=== PATIENT | male | born 1950 | race Two or more races ===

== ENCOUNTER 2016-06-04 14:18 | Emergency (ER) | payer MEDICARE, OTHER ==
[~2016-06-04] VITALS: Ht 172.7 cm; Wt 99.8 kg
[2016-06-04 14:00] VITALS: BP 115/76
[~2016-06-04 14:18] MED LIST: CHOL200016 GT; FOLI0.8T23 GT; IPRA3AMP IH; NUT.237L67 GT; PANT40SU2 GT; PROT946L GT
[2016-06-04 14:50] LABS: BASOPHILS # (AUTO) 0.1 /CMM (0.0-0.2); BASOPHILS % (AUTO) 0.9 % (0.0-2.0); DIFF TOTAL % 100 %; EOSINOPHILS # (AUTO) 0.4 /CMM (0.0-0.7); EOSINOPHILS % (AUTO) 5.6 % (0.0-6.0); HEMATOCRIT 34 % (39-51); HEMOGLOBIN 11.1 g/dL (13.5-17.5); LYMPHOCYTES # (AUTO) 1.3 /CMM (0.8-4.8); LYMPHOCYTES % (AUTO) 20.7 % (20.0-44.0); MEAN CORPUSCULAR HEMOGLOBIN 32 PG (26.0-33.0); MEAN CORPUSCULAR HGB CONC 33 g/dl (31.0-36.0); MEAN CORPUSCULAR VOLUME 96 fL (80-96); MONOCYTES # (AUTO) 0.6 /CMM (0.1-1.30); MONOCYTES % (AUTO) 8.7 % (2.0-12.0); NEUTROPHILS % (AUTO) 64.1 % (43.0-81.0); PLATELET COUNT (AUTO) 142 /CMM (150-450); RED BLOOD CELL COUNT(AUTO) 3.49 MIL/uL (4.5-6.0); WHITE BLOOD COUNT (AUTO) 6.4 K/uL (4.3-11.0)
[2016-06-04 15:00] LABS: CALCIUM, SERUM 9.1 mg/dL (8.5-10.1); CREATININE 3.3 mg/dL (0.6-1.3); POTASSIUM 3.9 mmol/L (3.5-5.1)
[2016-06-04 15:04] LABS: INR 1.33 (0.87-1.13)
[2016-06-04 15:12] LABS: ALBUMIN 2.1 g/dL (3.4-5.0); BILIRUBIN,DIRECT 0.6 mg/dL (0.0-0.2); BILIRUBIN,TOTAL 1.3 mg/dL (0.2-1.0); INDIRECT BILIRUBIN 0.7 mg/dL (0.0-1.1); TOTAL PROTEIN, SERUM 6.3 g/dL (6.4-8.2)
[2016-06-04] MEDS ORDERED: LACT10SO GT (15:40)
[2016-06-04 17:06] VITALS: BP 114/67
== END 2016-06-04 17:07 | disposition home or self-care (01) ==
LOC: ER 14:23
DX: K70.31 Alcoholic cirrhosis of liver with ascites (principal); G40.909 Epilepsy, unspecified, not intractable, without status epilepticus; I48.91 Unspecified atrial fibrillation; I12.0 Hypertensive chronic kidney disease with stage 5 chronic kidney disease or end stage renal disease; N18.6 End stage renal disease
CPT/HCPCS: 36415; 49083; 71010; 80048; 80076; 83880; 85025; 85730; 99285; A4606; 76942-TC; Z7610

== ENCOUNTER 2016-06-12 11:45 | Inpatient (IN) | payer MEDICARE, OTHER ==
[~2016-06-12] VITALS: Ht 172.7 cm; Wt 103.0 kg
[~2016-06-12 11:45] MED LIST changes: +LACT10SO GT
[2016-06-12 12:00] VITALS: BP 91/59
[2016-06-12] MEDS ORDERED: IV NS 0.9% 1,000 ML BAG IV ONE (12:00)
[2016-06-12] MEDS ORDERED: IV SET PRIMARY PUMP SET 1 EA INFUS.SET MC ONE ×2 (12:08→12:42)
[2016-06-12] MEDS ORDERED: IV NS 0.9% 1,000 ML ONE (12:08)
[2016-06-12 12:11] LABS: BASOPHILS # (AUTO) 0.1 /CMM (0.0-0.2); BASOPHILS % (AUTO) 0.8 % (0.0-2.0); DIFF TOTAL % 100 %; EOSINOPHILS # (AUTO) 0.1 /CMM (0.0-0.7); EOSINOPHILS % (AUTO) 1.2 % (0.0-6.0); HEMATOCRIT 36 % (39-51); HEMOGLOBIN 11.8 g/dL (13.5-17.5); LYMPHOCYTES # (AUTO) 1.3 /CMM (0.8-4.8); LYMPHOCYTES % (AUTO) 10.8 % (20.0-44.0); MEAN CORPUSCULAR HEMOGLOBIN 32 PG (26.0-33.0); MEAN CORPUSCULAR HGB CONC 33 g/dl (31.0-36.0); MEAN CORPUSCULAR VOLUME 97 fL (80-96); MONOCYTES # (AUTO) 1.3 /CMM (0.1-1.30); MONOCYTES % (AUTO) 10.7 % (2.0-12.0); NEUTROPHILS # (AUTO) 9.4 /CMM (1.8-8.9); NEUTROPHILS % (AUTO) 76.5 % (43.0-81.0); PLATELET COUNT (AUTO) 131 /CMM (150-450); RED BLOOD CELL COUNT(AUTO) 3.76 MIL/uL (4.5-6.0); WHITE BLOOD COUNT (AUTO) 12.2 K/uL (4.3-11.0)
[2016-06-12 12:21] LABS: ANION GAP 13 (5-14); CALCIUM, SERUM 8.8 mg/dL (8.5-10.1); CARBON DIOXIDE 24 mmol/L (21-32); CHLORIDE 103 mmol/L (98-107); CREATININE 2.3 mg/dL (0.6-1.3); GFR 29 mL/min (>60); GLUCOSE 88 mg/dL (74-106); POTASSIUM 3.8 mmol/L (3.5-5.1); SODIUM SERUM 136 mmol/L (136-145); UREA NITROGEN, BLOOD 29 mg/dL (7-18)
[2016-06-12 12:27] LABS: ALANINE AMINOTRANSFERASE 13 U/L (12-78); ALBUMIN 1.9 g/dL (3.4-5.0); ASPARTATE AMINOTRANSFERASE 30 U/L (15-37); BILIRUBIN,DIRECT 0.9 mg/dL (0.0-0.2); BILIRUBIN,TOTAL 1.9 mg/dL (0.2-1.0); TOTAL PROTEIN, SERUM 5.8 g/dL (6.4-8.2)
[2016-06-12 12:29] LABS: TROPONIN I < 0.017 ng/mL (0.00-0.056)
[2016-06-12] MEDS ORDERED: MEROPENEM 1,000 MG in IV NS 0.9% 100 ML IV ONE (12:30)
[2016-06-12] MEDS ORDERED: VANCOMYCIN 1 GM in IV D5W 250 ML IV ONE (12:30)
[2016-06-12 12:43] LABS: LACTIC ACID 1.8 mmol/L (0.4-2.0)
[2016-06-12 13:32] LABS: KETONES,URINE 15 (NEGATIVE); LEUKOCYTE ESTERASE ,URINE Small (NEGATIVE)
[2016-06-12 13:33] LABS: ADD UA MICROSCOPIC YES
[2016-06-12 13:34] VITALS: BP 92/47
[2016-06-12 13:41] LABS: ADD URINE CULTURE YES
[2016-06-12] MEDS ORDERED: LACT10SO7 GT (14:08)
[2016-06-12] MEDS ORDERED: OMEP20CA10 GT (14:08)
[2016-06-12] MEDS ORDERED: CHOL100044 GT (14:08)
[2016-06-12] MEDS ORDERED: AMIN30LI4 GT (14:08)
[2016-06-12 15:07] LABS: INR 1.35 (0.87-1.13); PROTHROMBIN TIME 14.6 SECS (9.5-12.7)
[2016-06-12 15:45] VITALS: BP 101/59
[2016-06-12] MEDS ORDERED: Z GUARD REMEDY 2 OZ OINT TP PRN (18:00)
[2016-06-12] MEDS ORDERED: ACETAMINOPHEN 325 MG TABLET PO PRN (18:00)
[2016-06-12] MEDS ORDERED: HYDROCODONE/APAP 5/325MG 1 EACH TABLET PO PRN (18:00)
[2016-06-12] MEDS ORDERED: ZOLPIDEM TARTRATE 5 MG TABLET PO PRN (18:00)
[2016-06-12] MEDS ORDERED: Medication Not On Formulary EA (Ipratropium/Albuterol Sulfate (Duoneb 2.5-0.5 Mg/3 Ml So IH PRN (18:00)
[2016-06-12] MEDS ORDERED: ONDANSETRON HCL/PF 4 MG/2 ML VIAL IVP PRN (18:00)
[2016-06-12 18:05] VITALS: BP 93/47
[2016-06-12] MEDS ORDERED: FEE PK DOSING 1 MIN EA MC ONE (18:19)
[2016-06-12] MEDS ORDERED: ALBUTEROL FS 2.5 MG/0.5 ML VIAL.NEB NEB PRN (18:30)
[2016-06-12] MEDS ORDERED: IPRATROPIUM NEB FS 0.5 MG/2.5 ML AMPUL.NEB NEB PRN (18:30)
[2016-06-12] MEDS ORDERED: Medication Not On Formulary EA (Ipratropium/Albuterol Sulfate (Duoneb 2.5-0.5 Mg/3 Ml So IH SCH (19:30)
[2016-06-12] MEDS: ALBUTEROL FS 2.5 MG/0.5 ML VIAL.NEB NEB SCH (19:30)
[2016-06-12] MEDS: IPRATROPIUM NEB FS 0.5 MG/2.5 ML AMPUL.NEB NEB SCH (19:31)
[2016-06-12 20:00] VITALS: BP 96/59
[2016-06-12] MEDS ORDERED: MEROPENEM 1 G in IV NS 0.9% 100 ML IV SCH (21:00)
[2016-06-12] MEDS: LACTULOSE 10 G/15 ML UDC (PYXIS) GT SCH (22:09)
[2016-06-12] MEDS ORDERED: RENAL NOVASOURCE 1,000 ML BOTTLE ONE (23:12)
[2016-06-13] VITALS (8 sets, daily range): BP systolic 92–112; BP diastolic 46–64
[2016-06-13] MEDS: ALBUTEROL FS 2.5 MG/0.5 ML VIAL.NEB NEB SCH ×4 (03:45→19:16)
[2016-06-13] MEDS: IPRATROPIUM NEB FS 0.5 MG/2.5 ML AMPUL.NEB NEB SCH ×4 (03:45→19:16)
[2016-06-13] MEDS: LACTULOSE 10 G/15 ML UDC (PYXIS) GT SCH ×3 (05:54→21:23)
[2016-06-13] MEDS: PANTOPRAZOLE 40 MG TABLET.DR PO SCH (06:38)
[2016-06-13 07:41] LABS: BASOPHILS # (AUTO) 0.1 /CMM (0.0-0.2); BASOPHILS % (AUTO) 1.4 % (0.0-2.0); DIFF TOTAL % 100 %; EOSINOPHILS # (AUTO) 0.3 /CMM (0.0-0.7); EOSINOPHILS % (AUTO) 4.3 % (0.0-6.0); HEMATOCRIT 32 % (39-51); HEMOGLOBIN 10.8 g/dL (13.5-17.5); LYMPHOCYTES # (AUTO) 1.4 /CMM (0.8-4.8); LYMPHOCYTES % (AUTO) 21.5 % (20.0-44.0); MEAN CORPUSCULAR HEMOGLOBIN 32 PG (26.0-33.0); MEAN CORPUSCULAR HGB CONC 34 g/dl (31.0-36.0); MEAN CORPUSCULAR VOLUME 95 fL (80-96); MONOCYTES # (AUTO) 0.7 /CMM (0.1-1.30); MONOCYTES % (AUTO) 11.3 % (2.0-12.0); NEUTROPHILS % (AUTO) 61.5 % (43.0-81.0); PLATELET COUNT (AUTO) 125 /CMM (150-450); RED BLOOD CELL COUNT(AUTO) 3.36 MIL/uL (4.5-6.0); WHITE BLOOD COUNT (AUTO) 6.4 K/uL (4.3-11.0)
[2016-06-13 08:09] LABS: CALCIUM, SERUM 8.4 mg/dL (8.5-10.1); CREATININE 2.9 mg/dL (0.6-1.3); PHOSPHORUS 3.3 mg/dL (2.5-4.9); POTASSIUM 3.8 mmol/L (3.5-5.1)
[2016-06-13] MEDS ORDERED: IV SET PRIMARY PUMP SET 1 EA INFUS.SET MC ONE (14:31)
[2016-06-13] MEDS: MEROPENEM 500 MG in IV NS 0.9% 50 ML IV SCH (14:39)
[2016-06-13] MEDS: MORPHINE SULFATE INJ 2 MG/ML DISP.SYRIN IV PRN (14:47)
[2016-06-13] MEDS: Z GUARD REMEDY 2 OZ OINT TP PRN ×2 (17:01→17:02)
[2016-06-13] MEDS: HYDROGEL DRESSING 90 GM TUBE TP SCH (17:01)
[2016-06-13] MEDS: UREA 10% -AHA 4% CREAM 57 GM TUBE TP SCH ×2 (17:02→17:03)
[2016-06-13] MEDS: Z GUARD REMEDY 2 OZ OINT TP SCH (17:03)
[2016-06-13] MEDS ORDERED: VANCOMYCIN 500 MG in IV D5W 100 ML IV PRN (18:00)
[2016-06-13] MEDS ORDERED: VANCOMYCIN 1 GM in IV D5W 250 ML IV ONE (18:30)
[2016-06-14] MEDS: ALBUTEROL FS 2.5 MG/0.5 ML VIAL.NEB NEB SCH ×4 (01:06→19:51)
[2016-06-14] MEDS: IPRATROPIUM NEB FS 0.5 MG/2.5 ML AMPUL.NEB NEB SCH ×4 (01:06→19:51)
[2016-06-14] MEDS: LACTULOSE 10 G/15 ML UDC (PYXIS) GT SCH ×3 (05:28→21:16)
[2016-06-14 06:00] VITALS: BP 112/53
[2016-06-14] MEDS: PANTOPRAZOLE 40 MG TABLET.DR PO SCH ×2 (06:05→08:35)
[2016-06-14] MEDS: UREA 10% -AHA 4% CREAM 57 GM TUBE TP SCH ×2 (08:33→16:50)
[2016-06-14] MEDS: Z GUARD REMEDY 2 OZ OINT TP SCH ×2 (08:34→16:50)
[2016-06-14] MEDS: HYDROGEL DRESSING 90 GM TUBE TP SCH (08:34)
[2016-06-14] MEDS: Z GUARD REMEDY 2 OZ OINT TP PRN (08:34)
[2016-06-14 10:00] VITALS: BP 104/59
[2016-06-14] MEDS: MORPHINE SULFATE INJ 2 MG/ML DISP.SYRIN IV PRN (10:08)
[2016-06-14 10:37] LABS: BASOPHILS % (AUTO) 0.5 % (0.0-2.0); DIFF TOTAL % 100 %; EOSINOPHILS # (AUTO) 0.4 /CMM (0.0-0.7); HEMATOCRIT 35 % (39-51); HEMOGLOBIN 11.7 g/dL (13.5-17.5); LYMPHOCYTES % (AUTO) 14.5 % (20.0-44.0); MEAN CORPUSCULAR HEMOGLOBIN 32 PG (26.0-33.0); MEAN CORPUSCULAR HGB CONC 33 g/dl (31.0-36.0); MEAN CORPUSCULAR VOLUME 95 fL (80-96); MONOCYTES % (AUTO) 13.4 % (2.0-12.0); NEUTROPHILS # (AUTO) 4.8 /CMM (1.8-8.9); NEUTROPHILS % (AUTO) 66.6 % (43.0-81.0); PLATELET COUNT (AUTO) 136 /CMM (150-450); RED BLOOD CELL COUNT(AUTO) 3.68 MIL/uL (4.5-6.0); WHITE BLOOD COUNT (AUTO) 7.2 K/uL (4.3-11.0)
[2016-06-14 10:48] LABS: CALCIUM, SERUM 8.4 mg/dL (8.5-10.1); CREATININE 2.8 mg/dL (0.6-1.3); POTASSIUM 3.8 mmol/L (3.5-5.1)
[2016-06-14] MEDS: MEROPENEM 500 MG in IV NS 0.9% 50 ML IV SCH (12:36)
[2016-06-14] MEDS ORDERED: IV SET PRIMARY PUMP SET 1 EA INFUS.SET MC ONE (12:37)
[2016-06-14 13:00] VITALS: BP 104/59
[2016-06-14] MEDS: LACTOBACILLUS RHAMNOSUS GG 1 EACH CAP.SPRINK PO SCH (16:50)
[2016-06-14 20:00] VITALS: BP 150/68
[2016-06-14] MEDS: RENAL NOVASOURCE 1,000 ML BOTTLE GT PRN (20:19)
[2016-06-15] VITALS: BP 108/56
[2016-06-15] MEDS: ALBUTEROL FS 2.5 MG/0.5 ML VIAL.NEB NEB SCH ×4 (01:08→20:06)
[2016-06-15] MEDS: IPRATROPIUM NEB FS 0.5 MG/2.5 ML AMPUL.NEB NEB SCH ×4 (01:08→20:06)
[2016-06-15 04:00] VITALS: BP 106/60
[2016-06-15] MEDS: LACTULOSE 10 G/15 ML UDC (PYXIS) GT SCH ×3 (06:07→20:54)
[2016-06-15 07:35] LABS: CALCIUM, SERUM 8.5 mg/dL (8.5-10.1); POTASSIUM 3.7 mmol/L (3.5-5.1)
[2016-06-15 08:00] VITALS: BP 100/57
[2016-06-15] MEDS: LACTOBACILLUS RHAMNOSUS GG 1 EACH CAP.SPRINK PO SCH ×2 (09:21→17:00)
[2016-06-15] MEDS: UREA 10% -AHA 4% CREAM 57 GM TUBE TP SCH ×2 (09:22→17:04)
[2016-06-15] MEDS: PANTOPRAZOLE 40 MG TABLET.DR PO SCH (09:22)
[2016-06-15] MEDS: Z GUARD REMEDY 2 OZ OINT TP SCH ×2 (09:22→17:04)
[2016-06-15] MEDS: HYDROGEL DRESSING 90 GM TUBE TP SCH (09:22)
[2016-06-15] MEDS ORDERED: ALBUMIN 25% 25 GM in PREMIX 1 EA IV PRN (11:30)
[2016-06-15] MEDS: MEROPENEM 500 MG in IV NS 0.9% 50 ML IV SCH (12:57)
[2016-06-15] MEDS ORDERED: IV SET PRIMARY PUMP SET 1 EA INFUS.SET MC ONE (15:52)
[2016-06-15] MEDS: RENAL NOVASOURCE 1,000 ML BOTTLE GT PRN (18:29)
[2016-06-15 20:00] VITALS: BP 112/63
[2016-06-16] VITALS: BP 104/57
[2016-06-16] MEDS: ALBUTEROL FS 2.5 MG/0.5 ML VIAL.NEB NEB SCH ×4 (01:38→19:26)
[2016-06-16] MEDS: IPRATROPIUM NEB FS 0.5 MG/2.5 ML AMPUL.NEB NEB SCH ×4 (01:38→19:26)
[2016-06-16 04:00] VITALS: BP 106/54
[2016-06-16] MEDS: LACTULOSE 10 G/15 ML UDC (PYXIS) GT SCH ×3 (05:37→21:52)
[2016-06-16] MEDS: RENAL NOVASOURCE 1,000 ML BOTTLE GT PRN (05:38)
[2016-06-16 08:00] VITALS: BP 101/60
[2016-06-16] MEDS: LACTOBACILLUS RHAMNOSUS GG 1 EACH CAP.SPRINK PO SCH ×2 (09:10→17:39)
[2016-06-16] MEDS: UREA 10% -AHA 4% CREAM 57 GM TUBE TP SCH ×2 (09:12→17:40)
[2016-06-16] MEDS: HYDROGEL DRESSING 90 GM TUBE TP SCH (09:12)
[2016-06-16] MEDS: Z GUARD REMEDY 2 OZ OINT TP SCH ×2 (09:13→17:40)
[2016-06-16 12:00] VITALS: BP 109/59
[2016-06-16] MEDS ORDERED: SECONDARY IV SET 1 EA INFUS.SET MC ONE (12:40)
[2016-06-16] MEDS ORDERED: IV NS 0.9% 250 ML IV ONE (12:40)
[2016-06-16] MEDS: MEROPENEM 500 MG in IV NS 0.9% 50 ML IV SCH (12:44)
[2016-06-16 16:00] VITALS: BP 108/62
[2016-06-16 20:00] VITALS: BP 107/61
[2016-06-17] VITALS (7 sets, daily range): BP systolic 95–113; BP diastolic 39–59
[2016-06-17] MEDS: MORPHINE SULFATE INJ 2 MG/ML DISP.SYRIN IV PRN (01:04)
[2016-06-17] MEDS: RENAL NOVASOURCE 1,000 ML BOTTLE GT PRN ×2 (01:15→17:46)
[2016-06-17] MEDS: IPRATROPIUM NEB FS 0.5 MG/2.5 ML AMPUL.NEB NEB SCH ×4 (01:26→20:00)
[2016-06-17] MEDS: ALBUTEROL FS 2.5 MG/0.5 ML VIAL.NEB NEB SCH ×4 (01:27→20:00)
[2016-06-17] MEDS: LACTULOSE 10 G/15 ML UDC (PYXIS) GT SCH ×3 (04:24→21:05)
[2016-06-17 08:14] LABS: CALCIUM, SERUM 8.2 mg/dL (8.5-10.1); POTASSIUM 4.4 mmol/L (3.5-5.1)
[2016-06-17] MEDS: HYDROGEL DRESSING 90 GM TUBE TP SCH (08:54)
[2016-06-17] MEDS: LACTOBACILLUS RHAMNOSUS GG 1 EACH CAP.SPRINK PO SCH ×2 (09:00→17:46)
[2016-06-17] MEDS: PANTOPRAZOLE 40 MG TABLET.DR PO SCH (09:00)
[2016-06-17] MEDS: VIT B CMPLX 3/FA/VIT C/BIOTIN 1 TAB TABLET PO SCH (09:00)
[2016-06-17] MEDS: Z GUARD REMEDY 2 OZ OINT TP SCH ×2 (09:01→17:47)
[2016-06-17] MEDS: UREA 10% -AHA 4% CREAM 57 GM TUBE TP SCH ×2 (09:03→17:45)
[2016-06-17] MEDS: MEROPENEM 500 MG in IV NS 0.9% 50 ML IV SCH (15:38)
[2016-06-17] MEDS ORDERED: VANCOMYCIN 1 GM in IV D5W 250 ML IV ONE (18:00)
[2016-06-18] VITALS: BP 109/60
[2016-06-18] MEDS: IPRATROPIUM NEB FS 0.5 MG/2.5 ML AMPUL.NEB NEB SCH ×4 (01:41→19:41)
[2016-06-18] MEDS: ALBUTEROL FS 2.5 MG/0.5 ML VIAL.NEB NEB SCH ×4 (01:41→19:41)
[2016-06-18 04:00] VITALS: BP 109/65
[2016-06-18] MEDS: LACTULOSE 10 G/15 ML UDC (PYXIS) GT SCH ×3 (05:48→21:28)
[2016-06-18] MEDS ORDERED: VANCOMYCIN 500 MG in IV D5W 100 ML IV PRN (06:00)
[2016-06-18 08:00] VITALS: BP 98/52
[2016-06-18] MEDS: VIT B CMPLX 3/FA/VIT C/BIOTIN 1 TAB TABLET PO SCH (08:01)
[2016-06-18] MEDS: LACTOBACILLUS RHAMNOSUS GG 1 EACH CAP.SPRINK PO SCH ×2 (08:02→16:40)
[2016-06-18] MEDS: PANTOPRAZOLE 40 MG TABLET.DR PO SCH (08:02)
[2016-06-18] MEDS: UREA 10% -AHA 4% CREAM 57 GM TUBE TP SCH ×2 (08:03→16:41)
[2016-06-18] MEDS: HYDROGEL DRESSING 90 GM TUBE TP SCH (08:03)
[2016-06-18] MEDS: Z GUARD REMEDY 2 OZ OINT TP SCH ×2 (08:03→16:43)
[2016-06-18 12:00] VITALS: BP 100/58
[2016-06-18] MEDS: MEROPENEM 500 MG in IV NS 0.9% 50 ML IV SCH (12:14)
[2016-06-18 15:18] LABS: CALCIUM, SERUM 8.3 mg/dL (8.5-10.1); CREATININE 3.2 mg/dL (0.6-1.3); POTASSIUM 4.6 mmol/L (3.5-5.1)
[2016-06-18 16:00] VITALS: BP 116/69
[2016-06-18 20:00] VITALS: BP 104/59
[2016-06-18] MEDS: MORPHINE SULFATE INJ 2 MG/ML DISP.SYRIN IV PRN (21:02)
[2016-06-19] VITALS (7 sets, daily range): BP systolic 90–110; BP diastolic 45–62
[2016-06-19] MEDS: IPRATROPIUM NEB FS 0.5 MG/2.5 ML AMPUL.NEB NEB SCH ×4 (01:57→19:53)
[2016-06-19] MEDS: ALBUTEROL FS 2.5 MG/0.5 ML VIAL.NEB NEB SCH ×4 (01:57→19:53)
[2016-06-19] MEDS: LACTULOSE 10 G/15 ML UDC (PYXIS) GT SCH ×2 (04:27→12:01)
[2016-06-19] MEDS: PANTOPRAZOLE 40 MG TABLET.DR PO SCH (06:19)
[2016-06-19] MEDS: LACTOBACILLUS RHAMNOSUS GG 1 EACH CAP.SPRINK PO SCH ×2 (09:04→16:44)
[2016-06-19] MEDS: VIT B CMPLX 3/FA/VIT C/BIOTIN 1 TAB TABLET PO SCH (09:04)
[2016-06-19] MEDS: HYDROGEL DRESSING 90 GM TUBE TP SCH (09:05)
[2016-06-19] MEDS: Z GUARD REMEDY 2 OZ OINT TP SCH ×2 (09:05→16:44)
[2016-06-19] MEDS: UREA 10% -AHA 4% CREAM 57 GM TUBE TP SCH ×2 (09:06→16:44)
[2016-06-19 10:36] LABS: CALCIUM, SERUM 8.1 mg/dL (8.5-10.1); POTASSIUM 4.5 mmol/L (3.5-5.1)
[2016-06-19 11:09] LABS: CREATININE 3.1 mg/dL (0.6-1.3)
[2016-06-19] MEDS: MORPHINE SULFATE INJ 2 MG/ML DISP.SYRIN IV PRN ×2 (11:57→18:29)
[2016-06-19] MEDS: MEROPENEM 500 MG in IV NS 0.9% 50 ML IV SCH (12:38)
[2016-06-19] MEDS ORDERED: MERO500V IV (17:39)
== END 2016-06-19 21:21 | disposition short-term general hospital (02) | DRG 314 ==
LOC: ER 11:47 → TELE1 15:50
PROVIDERS: ADMIT Internal Medicine; ATTEND Internal Medicine
PROC: 5A1955Z Respiratory Ventilation, Greater than 96 Consecutive Hours (ICD-10-PCS; principal; 2016-06-12)
PROC: 5A1D60Z (ICD-10-PCS; 2016-06-13)
DX: T82.7XXA Infection and inflammatory reaction due to other cardiac and vascular devices, implants and grafts, initial encounter (principal); N18.6 End stage renal disease; R53.2 Functional quadriplegia; G93.40 Encephalopathy, unspecified; J18.9 Pneumonia, unspecified organism; R65.20 Severe sepsis without septic shock; Z99.11 Dependence on respirator [ventilator] status; J96.11 Chronic respiratory failure with hypoxia; D68.59 Other primary thrombophilia; K76.6 Portal hypertension; N39.0 Urinary tract infection, site not specified; I13.2 Hypertensive heart and chronic kidney disease with heart failure and with stage 5 chronic kidney disease, or end stage renal disease; Z99.2 Dependence on renal dialysis; Z87.891 Personal history of nicotine dependence; Z93.1 Gastrostomy status; D63.8 Anemia in other chronic diseases classified elsewhere; D69.2 Other nonthrombocytopenic purpura; G40.909 Epilepsy, unspecified, not intractable, without status epilepticus; I48.91 Unspecified atrial fibrillation; J44.9 Chronic obstructive pulmonary disease, unspecified; K70.31 Alcoholic cirrhosis of liver with ascites; L98.9 Disorder of the skin and subcutaneous tissue, unspecified; I50.9 Heart failure, unspecified; L85.3 Xerosis cutis; X58.XXXA Exposure to other specified factors, initial encounter; T14.8 Other injury of unspecified body region; Y93.9 Activity, unspecified; Y92.89 Other specified places as the place of occurrence of the external cause; Y99.9 Unspecified external cause status; Y84.9 Medical procedure, unspecified as the cause of abnormal reaction of the patient, or of later complication, without mention of misadventure at the time of the procedure; F09 Unspecified mental disorder due to known physiological condition; R13.10 Dysphagia, unspecified
CPT/HCPCS: 31720; 36415; 71010-TC; 80048-TC; 80076-TC; 80202-TC; 81000-TC; 82962-TC; 83605-TC; 83735-TC; 84100-TC; 84484-TC; 85025-TC; 85730-TC; 87040-TC; 87081-TC; 87086-TC; 90935-TC; 94002-TC; 94003-TC; 97001-TC; A4216; A4606; A6248; A6402; A6403; J2185; J2270; J2405; J3370; J7030; J7050; J7060; P9047; Z7610

== ENCOUNTER 2016-07-31 18:37 | Inpatient (IN) | payer MEDICARE, OTHER ==
[~2016-07-31] VITALS: Ht 182.9 cm; Wt 105.2 kg
[~2016-07-31 18:37] MED LIST changes: +AMIN30LI4 GT; +CHOL100044 GT; -CHOL200016 GT; -LACT10SO GT; +LACT10SO7 GT; +MERO500V IV; +OMEP20CA10 GT; -PANT40SU2 GT; -PROT946L GT
--- NOTE | 2016-07-31 19:05 | NUR ---
PT ARRIVED VIA TRANSPORT VENT WITH TRANSPORT THERAPIST AT BEDSIDE, PT IS TRACHED WITH SHILEY #[address] AND CURRENTLY ON [facility] VENT WITH THE FOLLOWING SETTINGS OF AC 16 600 35% +5, PT TRACH INFLATED TO MOV NO LEAK PRESENT, PT HAS COURSE, RHONCHI BILATERAL BREATH SOUNDS. PT VENT ALARMS ARE SET AND VERIFIED; WITH VENT PLUGGED INTO RED OUTLET. PT TOLERATING SETTINGS WELL NO ADVERSE REACTIONS NOTED Addendum: 07/31/16 at 1931 by BRIAN MASON RT Amended: Links added.
[2016-07-31 19:20] LABS: BASOPHILS % (AUTO) 0.2 % (0.0-2.0); EOSINOPHILS # (AUTO) 0.3 /CMM (0.0-0.7); EOSINOPHILS % (AUTO) 2.9 % (0.0-6.0); HEMATOCRIT 30 % (39-51); HEMOGLOBIN 10.1 g/dL (13.5-17.5); LYMPHOCYTES # (AUTO) 1.4 /CMM (0.8-4.8); LYMPHOCYTES % (AUTO) 11.7 % (20.0-44.0); MEAN CORPUSCULAR HEMOGLOBIN 31 PG (26.0-33.0); MEAN CORPUSCULAR HGB CONC 34 g/dl (31.0-36.0); MEAN CORPUSCULAR VOLUME 92 fL (80-96); MONOCYTES # (AUTO) 1.1 /CMM (0.1-1.30); MONOCYTES % (AUTO) 9.8 % (2.0-12.0); NEUTROPHILS # (AUTO) 8.7 /CMM (1.8-8.9); NEUTROPHILS % (AUTO) 75.4 % (43.0-81.0); PLATELET COUNT (AUTO) 154 /CMM (150-450); RDW COEFFICIENT OF VARIATION 16.6 (11.5-15.0); RED BLOOD CELL COUNT(AUTO) 3.23 MIL/uL (4.5-6.0); WHITE BLOOD COUNT (AUTO) 11.6 K/uL (4.3-11.0)
--- NOTE | 2016-07-31 19:26 | NUR ---
CXR DONE AT THE BEDSIDE.
[2016-07-31 19:30] LABS: CALCIUM, SERUM 8.9 mg/dL (8.5-10.1); CREATININE 2.6 mg/dL (0.6-1.3); POTASSIUM 4.4 mmol/L (3.5-5.1)
[2016-07-31] MEDS ORDERED: LEVE100S GT (19:31)
[2016-07-31] MEDS ORDERED: LORA1TAB GT (19:31)
[2016-07-31] MEDS ORDERED: LANS30CA10 GT (19:31)
[2016-07-31] MEDS ORDERED: ZINC220C8 GT (19:31)
[2016-07-31] MEDS ORDERED: EPOE1VIA7 SQ (19:31)
[2016-07-31] MEDS ORDERED: CHOL100044 GT (19:31)
[2016-07-31 19:36] LABS: ALBUMIN 1.8 g/dL (3.4-5.0); BILIRUBIN,DIRECT 0.4 mg/dL (0.0-0.2); TOTAL PROTEIN, SERUM 6.4 g/dL (6.4-8.2)
[2016-07-31 19:40] LABS: INR 1.21 (0.87-1.13); PROTHROMBIN TIME 13.1 SECS (9.5-12.7)
--- NOTE | 2016-07-31 19:40 | NUR ---
CALLED NURSING SUP. FOR TELE BED
--- NOTE | 2016-07-31 20:26 | NUR ---
CALLED, TRANSFERRED CALL TO
--- NOTE | 2016-07-31 20:28 | NUR ---
CALLING REPORT TO TELE NURSE.
--- NOTE | 2016-07-31 20:59 | NUR ---
CALLED RT TO TRANSPORT PT UPSTAIRS
[2016-07-31 21:30] VITALS: BP 93/54
--- NOTE | 2016-07-31 21:30 | NUR ---
PROGRAM ATTENDANT ADMIT PT ARRIVED ON UNIT. AAOX2-3, GABONESE SPEAKING. NO C/O OF PAIN OR DISCOMFORT AT THIS TIME. NO S/S OF RESPIRATORY DISTRESS. TELE SHOWING SR IN 60'S. TRACHE SHILEY 8 INTACT, [facility] VENT SETTINGS ACCURATE: AC 16, TV 600, FI02 35%, PEEP 5. DIALYSIS PORT R UPPER CHEST, LAST DIALYSIS SESSION RECEIVED TODAY 07/31. RAC IV INTACT AND PATENT. G TUBE INTACT, FLUSHED, PATENT. SKIN ISSUES DOCUMENTED. ABDOMEN VERY DISTENDED. BP 93/54, PULSE 64 - MD WELLS AWARE WITH NO NEW ORDERS. ORIENTATED TO UNIT AND CALL LIGHT , SAFETY PRECAUTIONS RENDERED. WILL CONT TO MONITOR.
--- NOTE | 2016-07-31 22:30 | NUR ---
RN NOTE PER PT DTR CARLOS. PT LAST RECEIVED DIALYSIS TODAY 07/31, BUT REFUSED ON 07/29. HIS SCHEDULE IS 3 TIMES A WEEK: THURSDAY, THURSDAY, THURSDAY.
[2016-07-31] MEDS ORDERED: RENAL NOVASOURCE 1,000 ML BOTTLE ONE (22:53)
[2016-07-31] MEDS ORDERED: LEVETIRACETAM SOL (5 ML) 100 MG/ML UDC PO SCH (23:30)
[2016-07-31] MEDS ORDERED: LEVETIRACETAM SOL (5 ML) 100 MG/ML UDC ONE (23:48)
[2016-07-31] MEDS ORDERED: LACTULOSE 10 G/15 ML UDC (PYXIS) ONE (23:50)
[2016-08-01] VITALS (8 sets, daily range): BP systolic 90–98; BP diastolic 48–62
[2016-08-01] MEDS: LACTULOSE 10 G/15 ML UDC (PYXIS) PO SCH ×4 (00:18→20:26)
[2016-08-01] MEDS ORDERED: ALBUTEROL FS 2.5 MG/0.5 ML VIAL.NEB ONE ×2 (02:00→07:39)
[2016-08-01] MEDS ORDERED: IPRATROPIUM NEB FS 0.5 MG/2.5 ML AMPUL.NEB ONE ×2 (02:00→07:39)
[2016-08-01] MEDS: ALBUTEROL FS 2.5 MG/0.5 ML VIAL.NEB NEB SCH ×2 (02:11→07:55)
[2016-08-01] MEDS: IPRATROPIUM NEB FS 0.5 MG/2.5 ML AMPUL.NEB NEB SCH ×4 (02:11→20:26)
--- NOTE | 2016-08-01 03:01 | NUR ---
RN NOTE PT RESTING COMFORTABLY WITH EYES CLOSED. NO DISTRESS NOTED. WILL CONT TO MONITOR.
--- NOTE | 2016-08-01 06:07 | NUR ---
RN NOTE NO SIGNIFICANT CHANGES THIS SHIFT. TRACHE VENT PATIENT - SETTINGS ACCURATE. NO S/S OF RESPIRATORY DISTRESS. TELE SHOWS SR WITH BBB IN 60'S. R WRIST INTACT AND PATENT. G TUBE INTACT, FLUSHED, TOLERATING FEEDING WELL. NPO STATUS. CONSENT SIGNED FOR PARACENTESIS. REPOSITIONED Q2HRS. CALL LIGHT IN REACH, WILL F/U WITH DAY SHIFT FOR MAREN.
[2016-08-01 06:55] LABS: BASOPHILS % (AUTO) 0.5 % (0.0-2.0); EOSINOPHILS # (AUTO) 0.4 /CMM (0.0-0.7); EOSINOPHILS % (AUTO) 5.3 % (0.0-6.0); HEMATOCRIT 27 % (39-51); HEMOGLOBIN 9.2 g/dL (13.5-17.5); LYMPHOCYTES # (AUTO) 1.5 /CMM (0.8-4.8); LYMPHOCYTES % (AUTO) 23.1 % (20.0-44.0); MEAN CORPUSCULAR HEMOGLOBIN 31 PG (26.0-33.0); MEAN CORPUSCULAR HGB CONC 34 g/dl (31.0-36.0); MEAN CORPUSCULAR VOLUME 93 fL (80-96); MONOCYTES # (AUTO) 0.7 /CMM (0.1-1.30); MONOCYTES % (AUTO) 10.4 % (2.0-12.0); NEUTROPHILS # (AUTO) 4.1 /CMM (1.8-8.9); NEUTROPHILS % (AUTO) 60.7 % (43.0-81.0); PLATELET COUNT (AUTO) 130 /CMM (150-450); RDW COEFFICIENT OF VARIATION 16.9 (11.5-15.0); RED BLOOD CELL COUNT(AUTO) 2.92 MIL/uL (4.5-6.0); WHITE BLOOD COUNT (AUTO) 6.7 K/uL (4.3-11.0)
[2016-08-01 07:08] LABS: INR 1.21 (0.87-1.13); PROTHROMBIN TIME 13.1 SECS (9.5-12.7)
[2016-08-01 07:33] LABS: CALCIUM, SERUM 8.6 mg/dL (8.5-10.1); CREATININE 2.8 mg/dL (0.6-1.3); MAGNESIUM 2.2 mg/dL (1.8-2.4); POTASSIUM 4.3 mmol/L (3.5-5.1)
--- NOTE | 2016-08-01 07:35 | NUR ---
MS RN RECEIVED ON BED,NON VERBAL, VENT DEPENDENT PATIENT,G TUBE INTACT CLAMP ART THIS TIME, ABDOMEN VERY DISTENDED,NO DISTRESS NOTED, REPOSITIONED FOR COMFORT, WILL MONITOR PATIENT'S CONDITION.
--- NOTE | 2016-08-01 08:48 | NUR ---
WOUND CARE CONSULT: PATIENT SEEN AND SKIN ASSESSMENT DONE. VENT DEPENDENT PATIENT, ON GT FEEDING, INCONTINENT, IMMOBILE, DELONTE 13, NURSING STAFF ORDERED RUBINA ISOFLEX FLYNN BED AND WILL BE PLACED WHEN AVAILABLE IN THE UNIT. SEE TODAY'S SKIN ASSESSMENT IN PCS ALONG WITH RECOMMENDATIONS. RECOMMEND MOISTURE PROTECTION WITH Z GUARD ORDERED, TURN AND REPOSITION EVERY 2 HRS PATIENT CONDITION PERMITS, OFFLOAD BOTH HEELS. ALL DISCUSSED WITH NURSING STAFF. MD IN AGREEMENT WITH PLAN OF CARE. Addendum: 08/01/16 at 0850 by DREW MCNULTY WNDNU Amended: Links added.
[2016-08-01] MEDS: Z GUARD REMEDY 2 OZ OINT TP SCH ×2 (09:00→17:00)
[2016-08-01] MEDS: LEVETIRACETAM SOL (5 ML) 100 MG/ML UDC GT SCH ×2 (09:00→18:19)
[2016-08-01] MEDS ORDERED: RENAL NOVASOURCE 1,000 ML BOTTLE GT PRN (09:00)
[2016-08-01] MEDS ORDERED: HYDROGEL DRESSING 90 GM TUBE TP SCH (09:00)
--- NOTE | 2016-08-01 09:00 | NUR ---
MS RN MEDS HELD DUE TO PARACENTHESIS LATER.
[2016-08-01] MEDS ORDERED: Medication Not On Formulary EA (Ipratropium/Albuterol Sulfate (Duoneb 2.5-0.5 Mg/3 Ml So IH PRN (09:30)
[2016-08-01] MEDS ORDERED: LEVETIRACETAM SOL (5 ML) 100 MG/ML UDC GT SCH (09:30)
[2016-08-01] MEDS ORDERED: LORAZEPAM 1 MG TABLET GT PRN (09:30)
[2016-08-01] MEDS ORDERED: NEPRO VAN 237 ML CAN GT SCH (09:30)
[2016-08-01] MEDS ORDERED: IPRATROPIUM NEB FS 0.5 MG/2.5 ML AMPUL.NEB NEB PRN (09:30)
[2016-08-01] MEDS ORDERED: ALBUTEROL FS 2.5 MG/3 ML VIAL.NEB NEB PRN (09:30)
[2016-08-01] MEDS ORDERED: Medication Not On Formulary EA (Lansoprazole (Prevacid) 30 MG) GT SCH (09:30)
[2016-08-01] MEDS: LACTULOSE 10 G/15 ML UDC (PYXIS) GT SCH ×2 (13:00→20:25)
[2016-08-01] MEDS: ALBUTEROL FS 2.5 MG/3 ML VIAL.NEB NEB SCH ×2 (13:26→20:26)
[2016-08-01] MEDS ORDERED: Medication Not On Formulary EA (Ipratropium/Albuterol Sulfate (Duoneb 2.5-0.5 Mg/3 Ml So IH SCH (13:30)
[2016-08-01] MEDS ORDERED: NEUTRA PHOS 1 POWD.PACKET NG ONE (14:30)
--- NOTE | 2016-08-01 14:30 | NUR ---
MS RN WAS SEEN BY DR. DIMITRIOS Mike/ KOSTA FOR THORACENTHESIS IN AM.
--- NOTE | 2016-08-01 15:30 | NUR ---
MS RN PARACENTHESIS DONE,TOOK OFF 9 LITERS,B/P MONITORED, LAST B/P . DR. BURCIAGA IS AWARE.ALL NEEDS ATTENDED.
[2016-08-01] MEDS: MULTIVITAMIN LIQ 5 ML UDC GT SCH (16:12)
[2016-08-01] MEDS: ZINC SULFATE 220 MG CAPSULE GT SCH (16:13)
[2016-08-01] MEDS: PANTOPRAZOLE 40 MG/PACK PACK GT SCH ×2 (16:13→20:25)
[2016-08-01] MEDS: EPOETIN ALFA (10,000 UNIT) 10,000 UNIT/ML VIAL SQ SCH (16:14)
[2016-08-01] MEDS: Z GUARD REMEDY 2 OZ OINT TP PRN ×2 (16:17→18:19)
[2016-08-01] MEDS: NEOMY SULF/BACITRAC ZN/POLY 15 GM TUBE TP SCH (16:17)
--- NOTE | 2016-08-01 16:20 | NUR ---
MS RN DUE MEDS GIVEN VIA G TUBE, FEEDING RESUMED,NO DISTRESS NOTED.
--- NOTE | 2016-08-01 18:56 | NUR ---
MS RN ON BED, NO DISTRESS NOTED,ALL NEEDS ATTENDED.
--- NOTE | 2016-08-01 19:15 | NUR ---
RN NOTE RECEIVED REPORT. PT AAOX3, NO C/O OF PAIN OR DISCOMFORT AT THIS TIME. NO S/S OF RESPIRATORY DISTRESS. VENT SETTINGS ACCURATE. S/P PARACENTESIS ON DAY SHIFT, DRESSING INTACT, NO BLEEDING NOTED. G TUBE INTACT TOLERATING FEEDING WELL. R WRIST INTACT AND APTENT. TELE SHOWS SR 70'S. ALL NEEDS ATTENED TO, WILL CONT TO MONITOR.CALL LIGHT IN REACH
[2016-08-01] MEDS ORDERED: ALBUMIN 25% 12.5 GM/50 ML BOTTLE IV ONE ×2 (19:30)
[2016-08-01] MEDS ORDERED: ALBUMIN 25% 12.5 GM in PREMIX 1 EA IV PRN (19:30)
[2016-08-01] MEDS ORDERED: ALBUMIN 25% 25 GM in PREMIX 1 EA IV ONE (20:00)
[2016-08-01] MEDS ORDERED: IV SET PRIMARY PUMP SET 1 EA INFUS.SET MC ONE (20:05)
--- NOTE | 2016-08-01 21:15 | NUR ---
RN NOTE PER MD ORDER, ALBUMIN 100CC GIVEN. WILL CONT TO MONITOR.
[2016-08-02] VITALS (43 sets, daily range): BP systolic 69–136; BP diastolic 34–94
[2016-08-02] MEDS: ALBUTEROL FS 2.5 MG/3 ML VIAL.NEB NEB SCH ×4 (00:53→19:44)
[2016-08-02] MEDS: IPRATROPIUM NEB FS 0.5 MG/2.5 ML AMPUL.NEB NEB SCH ×4 (00:53→19:44)
--- NOTE | 2016-08-02 01:01 | NUR ---
TELE/RN NOTES RECEIVED REPORT FROM RN FOR MAREN. PATIENT ON VENT, AWAKE, ALERT. MONITORING FOR S/S OF SOB OR DISTRESS. CAN COMMUNICATE BY WRITING AND ABLE TO UNDERSTAND SIMPLE SWISS.INFORMED ABOUT PROCEDURE CHANTAL .WILL CONTINUE TO MONITOR.
[2016-08-02] MEDS: LACTULOSE 10 G/15 ML UDC (PYXIS) PO SCH ×3 (03:39→21:30)
[2016-08-02] MEDS: LACTULOSE 10 G/15 ML UDC (PYXIS) GT SCH (04:01)
--- NOTE | 2016-08-02 06:02 | NUR ---
TELE/RN NOTES PATIENT IN BED, HOB ELEVATED. NO S/S OF SOB OR DISTRESS. CLOSELY MONITORED AT ALL TIMES. COOPERATIVE TO CARE. ATTEND TO NEEDS. ON VENT, RT PROVIDE BREATHING TX. GTUBE PATENTCY CHECK, NO RESIDUAL. WILL CONTINUE TO MONITOR AND ENDORSE TO AM RN FOR MAREN.
[2016-08-02 06:36] LABS: BASOPHILS # (AUTO) 0.1 /CMM (0.0-0.2); BASOPHILS % (AUTO) 0.5 % (0.0-2.0); EOSINOPHILS # (AUTO) 0.2 /CMM (0.0-0.7); EOSINOPHILS % (AUTO) 1.3 % (0.0-6.0); HEMATOCRIT 28 % (39-51); HEMOGLOBIN 9.3 g/dL (13.5-17.5); LYMPHOCYTES # (AUTO) 1.1 /CMM (0.8-4.8); LYMPHOCYTES % (AUTO) 8.8 % (20.0-44.0); MEAN CORPUSCULAR HEMOGLOBIN 31 PG (26.0-33.0); MEAN CORPUSCULAR HGB CONC 34 g/dl (31.0-36.0); MEAN CORPUSCULAR VOLUME 93 fL (80-96); MONOCYTES # (AUTO) 0.9 /CMM (0.1-1.30); MONOCYTES % (AUTO) 7.2 % (2.0-12.0); NEUTROPHILS # (AUTO) 10.3 /CMM (1.8-8.9); NEUTROPHILS % (AUTO) 82.2 % (43.0-81.0); PLATELET COUNT (AUTO) 186 /CMM (150-450); RDW COEFFICIENT OF VARIATION 17.3 (11.5-15.0); RED BLOOD CELL COUNT(AUTO) 2.96 MIL/uL (4.5-6.0); WHITE BLOOD COUNT (AUTO) 12.5 K/uL (4.3-11.0)
[2016-08-02 07:00] LABS: CALCIUM, SERUM 8.7 mg/dL (8.5-10.1); CREATININE 3.2 mg/dL (0.6-1.3); MAGNESIUM 2.2 mg/dL (1.8-2.4); PHOSPHORUS 2.8 mg/dL (2.5-4.9); POTASSIUM 4.5 mmol/L (3.5-5.1)
[2016-08-02 07:19] LABS: INR 1.16 (0.87-1.13); PROTHROMBIN TIME 12.5 SECS (9.5-12.7)
--- NOTE | 2016-08-02 07:30 | NUR ---
SECURITY SUPERVISOR NOTES RECEIVED PATIENT IN BED, SLEEPING, AROUSES EASILY. ON VENT SHILEY 8, WITH SETTINGS AC16 TV 600 PEEP 5% FiO2 35%, APPEARS COMFORTABLE IN BED, NO FACIAL GRIMACE. ON TELEMONITOR SINUS RHYTHM HR 82. MAINTAIN HOB ELEVATED, ON GTUBE FEEDING NOVASOURCE AT 70ML/HR. PLACE CALL LIGHT WITHIN REACH. WILL CONT TO MONITOR.
[2016-08-02] MEDS: CHOLECALCIFEROL 1,000 UNIT TABLET (VIT D3) GT SCH (09:31)
[2016-08-02] MEDS: MULTIVITAMIN LIQ 5 ML UDC GT SCH (09:31)
[2016-08-02] MEDS: PANTOPRAZOLE 40 MG/PACK PACK GT SCH ×2 (09:31→21:30)
[2016-08-02] MEDS: LEVETIRACETAM SOL (5 ML) 100 MG/ML UDC GT SCH ×2 (09:31→17:09)
[2016-08-02] MEDS: ZINC SULFATE 220 MG CAPSULE GT SCH (09:31)
[2016-08-02] MEDS: Z GUARD REMEDY 2 OZ OINT TP SCH ×2 (09:41→17:09)
[2016-08-02] MEDS ORDERED: IV NS 0.9% 250 ML BAG IV ONE (10:30)
[2016-08-02] MEDS ORDERED: IV SET PRIMARY PUMP SET 1 EA INFUS.SET MC ONE ×4 (10:33→15:31)
--- NOTE | 2016-08-02 10:33 | NUR ---
AFIB HR 140 ON THE TELEMONITOR, PATIENT APPEARS ANXIOUS. BP 96/48. DENIES CHEST PAIN. SUCTION PRN. MADE COMFORTABLE IN BED. CALLED SPOKE TO DR. STRONG, ORDERED TO GIVE NS 250ML BOLUS NOTED AND ACKNOWLEDGED.
--- NOTE | 2016-08-02 10:47 | NUR ---
STILL AFIB HR INCREASING 150. RT AT THE BEDSIDE. PATIENT DENIES CHEST PATIENT. PER DR. STRONG HE WILL CONTACT DR. GRIFFIN/CARDIO.
[2016-08-02] MEDS: NEOMY SULF/BACITRAC ZN/POLY 15 GM TUBE TP SCH (11:06)
--- NOTE | 2016-08-02 11:07 | NUR ---
PATIENT IS SEEN BY DR. SOLIS TODAY, PATIENT IS TO BE DISCHARGED TO SNF ORDERED. PER MD POSSIBLE AFTER SEEN BY CARDIO AND AFTER DIALYSIS TREATMENT AND IF PATIENT IS STABLE. CHARGE NURSE IS AWARE.
--- NOTE | 2016-08-02 11:11 | NUR ---
PATIENT APPEARS ANXIOUS, O2 SAT 95%. GIVEN ATIVAN 1MG VIA GT PRN FOR ANXIETY. WILL CONT TO MONITOR.
--- NOTE | 2016-08-02 12:49 | NUR ---
BP 89/42 HR 118 POST NS 250ML BOLUS. PATIENT APPEARS CALM AND RELAX. HR 148 ON TELE MONITOR. AWAITING FOR CARDIO CONSULT. WILL CONT TO MONITOR CLOSELY.
--- NOTE | 2016-08-02 14:16 | NUR ---
STILL LOW BP 83/53. ON TELE MONITOR AFIB HR 114-120'S. PATIENT IS SEEN BY DR. ESTRADA/CARDIO TODAY. PATIENT TO BE TRANSFERRED TO ICU FOR LEVOPHED/AMIODARONE ORDERED. CHARGE NURSE IS AWARE.
[2016-08-02] MEDS ORDERED: IV NS 0.9% 1,000 ML BAG IV ONE (14:30)
[2016-08-02] MEDS ORDERED: AMIODARONE 900 MG in IV D5W 482 ML IV PRN (14:30)
[2016-08-02] MEDS ORDERED: AMIODARONE 150 MG in IV D5W 100 ML IV ONE (14:30)
--- NOTE | 2016-08-02 14:51 | NUR ---
ROLLER PICKER NOTES PATIENT TRANSFERRED TO ICU ORDERED. BEDSIDE REPORT GIVEN TO ERICA-RN FOR CONTINUITY OF CARE.
[2016-08-02] MEDS ORDERED: VANCOMYCIN 1 GM in IV D5W 250 ML IV ONE (15:00)
[2016-08-02] MEDS ORDERED: FEE PK DOSING 1 MIN EA MC ONE (15:01)
--- NOTE | 2016-08-02 15:01 | NUR ---
QLIKVIEW DEVELOPER RECEIVED PATIENT FROM [facility] LEVEL OF CARE DUE TO RAPID AFIB AND HYPOTENSION. PATIENT WAS SEEN BY THE SENIOR SUSTAINABILITY CONSULTANT. LEVOPHED, AMIODARONE ORDERS IN PLACE ALONG WITH FLUID ORDERS. PICC LINE ORDERED BY THE SENIOR SUSTAINABILITY CONSULTANT DUE TO PRESSOR REQUIREMENTS.
[2016-08-02] MEDS ORDERED: SECONDARY IV SET 1 EA INFUS.SET MC ONE ×2 (15:05→15:39)
[2016-08-02] MEDS: NOREPINEPHRINE 16 MG in IV D5W 500 ML IV PRN (15:12)
--- NOTE | 2016-08-02 15:15 | NUR ---
SBP 68-69, HR 140 A FIB AND DNP ELINOR NOT YET AVAILABLE TO PLACE PIC THEREFORE HD CATH RT CHEST ACCESSED AND DWELL REMOVED AND LEVOPHED STARTED AND DR SOLIS NOTIFIED OF ACCESS. FLUID CHALLENGE RUNNING AND AMIODARONE STARTED
--- NOTE | 2016-08-02 16:02 | NUR ---
SHEARING MACHINE FEEDER PATIENT CONVERTED TO SINUS RHYTHM.
[2016-08-02 16:50] LABS: ABG BASE EXCESS 1.2 mmol/L; ABG OXYGEN SATURATION 96.8 % (92.0-98.5); ABG PCO2 34.3 mmHg (35.0-45.0); ABG PH 7.473 (7.350-7.450); ABG PO2 94.8 mmHg (75.0-100.0); ABG TOTAL HEMOGLOBIN 10.2 G/dL (13.5-18.0); AaDO2 114.9 mmHg; COHb 0.5 % (0.5-1.5); MetHb 1.2 % (0.0-1.5); O2Hb 95.2 % (94.0-97.0); PEEP,BG 5 cm H2O; SITE, ABG Right Radial; VT, ABG 600 mL
[2016-08-02] MEDS ORDERED: RENAL NOVASOURCE 1,000 ML BOTTLE GT PRN (17:06)
[2016-08-02] MEDS: PIPERACILLIN /TAZOBACTAM 2.25 G in IV D5W 50 ML IV SCH ×2 (17:08→23:59)
[2016-08-02] MEDS ORDERED: PIPERACILLIN /TAZOBACTAM 3.375 G in IV D5W 50 ML IV SCH (18:00)
--- NOTE | 2016-08-02 19:42 | NUR ---
PAYROLL HUMAN RESOURCES ASSISTANT. INITIAL ASSESSMENT. RECEIVED THE PT REST ON THE BED. AWAKE, ALERT, TRACH TO VENT CONNECTED. SHILEY 8, AC 16,TV 600,FIO2 35%, PEEP 5. SAT 98%. NO ACUTE DISTRESS NOTED. WAD BLANKING PRESS ADJUSTER SHOWING NSR. IV LT UPPER ARM PICC LINE. RT SUBCLAVIAN WINTER CATH IV AMIODARONE 1MCG/ MIN, LEVOPHED 8MCG/MIN. NS 250 ML/H. HOB ELEVATED. GT INTACT. TURN AND REPOSITION Q2H. WILL CONTINUE TO MONITOR VITALS.
[2016-08-02] MEDS ORDERED: IV NS 0.9% 250 ML IV ONE (21:19)
[2016-08-02] MEDS: IV NS 0.9% 250 ML IV PRN (21:32)
[2016-08-03] VITALS (82 sets, daily range): BP systolic 81–124; BP diastolic 43–84
[2016-08-03] MEDS: ALBUTEROL FS 2.5 MG/3 ML VIAL.NEB NEB SCH ×4 (01:46→19:41)
[2016-08-03] MEDS: IPRATROPIUM NEB FS 0.5 MG/2.5 ML AMPUL.NEB NEB SCH ×4 (01:46→19:41)
--- NOTE | 2016-08-03 03:07 | NUR ---
ELECTROMEDICAL EQUIPMENT REPAIRER. AM CARE. ORAL CARE, BED BATH GIVEN. LINEN CHANGED. REMAINING SAME VENT SETTINGS TOLERATED WELL. SAT 98 %. NO ACUTE DISTRESS NOTED. FLOOR REPRESENTATIVE SHOWING NSR. IV LT UPPER ARM PICC LINE. AMIODARONE 0.5MG, LEVOPHED 10MCG/MIN. GT FEED NOVA SOURCE 50L/H. HOB ELEVATED. TURN AND REPOSITION Q2H. WILL CONTINUE TO MONITOR VITALS.
[2016-08-03 04:39] LABS: CALCIUM, SERUM 8.6 mg/dL (8.5-10.1); CREATININE 3.6 mg/dL (0.6-1.3); POTASSIUM 4.3 mmol/L (3.5-5.1)
[2016-08-03] MEDS: LACTULOSE 10 G/15 ML UDC (PYXIS) PO SCH ×3 (04:59→21:21)
[2016-08-03] MEDS: PIPERACILLIN /TAZOBACTAM 2.25 G in IV D5W 50 ML IV SCH ×3 (04:59→17:54)
--- NOTE | 2016-08-03 07:35 | NUR ---
PUBLIC HEALTH ADMINISTRATOR RECEIVED PATIENT FROM THE PREVIOUS SHIFT. PATIENT IN BED. RESTING COMFORTABLY. VENT SETTINGS REVIEWED AND VERIFIED. SUCTIONED FOR CLEARANCE. NORMAL VITAL SINGS. WILL CONTINUE TO MONITOR AND PROVIDE CARE.
[2016-08-03] MEDS: CHOLECALCIFEROL 1,000 UNIT TABLET (VIT D3) GT SCH (08:42)
[2016-08-03] MEDS: ZINC SULFATE 220 MG CAPSULE GT SCH (08:42)
[2016-08-03] MEDS: MULTIVITAMIN LIQ 5 ML UDC GT SCH (08:42)
[2016-08-03] MEDS: PANTOPRAZOLE 40 MG/PACK PACK GT SCH ×2 (08:42→21:21)
[2016-08-03] MEDS: LEVETIRACETAM SOL (5 ML) 100 MG/ML UDC GT SCH ×2 (08:42→17:54)
[2016-08-03] MEDS: NEOMY SULF/BACITRAC ZN/POLY 15 GM TUBE TP SCH (08:43)
[2016-08-03] MEDS: Z GUARD REMEDY 2 OZ OINT TP SCH ×2 (08:43→17:54)
--- NOTE | 2016-08-03 10:28 | NUR ---
REFINERY OPERATOR GAS PLANT SPUTUM SAMPLE COLLECTED. RN EXPLAINED THE PATIENT REGARDING URINE COLLECTION. PATIENT REFUSES STRAIGHT CATH AT THIS TIME. RISKS AND BENEFITS EXPLAINED. WILL ATTEMPT AGAIN LATER.
[2016-08-03] MEDS: NOREPINEPHRINE 16 MG in IV D5W 500 ML IV PRN (14:46)
[2016-08-03] MEDS ORDERED: DOSING PER PHARMACY-AMIKACI IV XX PRN (17:00)
[2016-08-03] MEDS ORDERED: FEE PK DOSING 1 MIN EA MC ONE (17:37)
[2016-08-03] MEDS: LACTOBACILLUS RHAMNOSUS GG 1 EACH CAP.SPRINK PO SCH (17:54)
[2016-08-03] MEDS: RENAL NOVASOURCE 1,000 ML BOTTLE GT PRN (17:56)
[2016-08-03] MEDS ORDERED: AMIKACIN 500 MG in IV D5W 100 ML IV ONE (18:00)
--- NOTE | 2016-08-03 20:45 | NUR ---
PT RECEIVED TRACH ON VENT. NO RESP DISTRESS NOTED. PT IS AWAKE ALERT TOLERATING VENT SETTINGS. SX'D FOR MOD AMT OF FOAMY WHITE SECRETIONS. VENT ALARMS SET AND AUDIBLE. AMBU BAG AT [facility]. VENT PLUGGED INTO RED OUTLET. WILL CONTINUE TO MONITOR. Addendum: 08/03/16 at 2045 by FERNANDO CALLES RT Amended: Links added.
[2016-08-03] MEDS ORDERED: MICAFUNGIN SODIUM 100 MG VIAL IV ONE (21:30)
[2016-08-03] MEDS ORDERED: AMIODARONE HCL 200 MG TABLET ONE (21:37)
[2016-08-03] MEDS ORDERED: IV NS 0.9% 100 ML IV ONE (21:37)
[2016-08-03] MEDS: MICAFUNGIN SODIUM 100 MG in IV NS 0.9% 100 ML IV SCH (21:50)
[2016-08-03] MEDS: AMIODARONE HCL 200 MG TABLET GT SCH (21:50)
[2016-08-03] MEDS ORDERED: ALBUMIN 25% 100 ML IV ONE (22:15)
[2016-08-03] MEDS ORDERED: IV SET PRIMARY PUMP SET 1 EA INFUS.SET MC ONE (22:15)
[2016-08-03] MEDS ORDERED: SECONDARY IV SET 1 EA INFUS.SET MC ONE (22:16)
[2016-08-04] VITALS (49 sets, daily range): BP systolic 79–126; BP diastolic 41–83
[2016-08-04] MEDS: IV NS 0.9% 250 ML IV PRN ×2 (01:17→20:45)
[2016-08-04] MEDS: PIPERACILLIN /TAZOBACTAM 2.25 G in IV D5W 50 ML IV SCH ×5 (01:17→23:22)
[2016-08-04] MEDS ORDERED: SECONDARY IV SET 1 EA INFUS.SET MC ONE ×2 (01:27→17:54)
[2016-08-04] MEDS: RENAL NOVASOURCE 1,000 ML BOTTLE GT PRN (01:32)
[2016-08-04] MEDS: ALBUTEROL FS 2.5 MG/3 ML VIAL.NEB NEB SCH ×4 (01:36→20:01)
[2016-08-04] MEDS: IPRATROPIUM NEB FS 0.5 MG/2.5 ML AMPUL.NEB NEB SCH ×4 (01:36→20:01)
[2016-08-04] MEDS: VANCOMYCIN 500 MG in IV D5W 100 ML IV PRN (03:17)
[2016-08-04 04:58] LABS: BASOPHILS % (AUTO) 0.4 % (0.0-2.0); EOSINOPHILS # (AUTO) 0.5 /CMM (0.0-0.7); EOSINOPHILS % (AUTO) 5.2 % (0.0-6.0); HEMATOCRIT 27 % (39-51); HEMOGLOBIN 9.1 g/dL (13.5-17.5); LYMPHOCYTES # (AUTO) 0.9 /CMM (0.8-4.8); LYMPHOCYTES % (AUTO) 9.1 % (20.0-44.0); MEAN CORPUSCULAR HEMOGLOBIN 32 PG (26.0-33.0); MEAN CORPUSCULAR HGB CONC 34 g/dl (31.0-36.0); MEAN CORPUSCULAR VOLUME 93 fL (80-96); MONOCYTES # (AUTO) 0.8 /CMM (0.1-1.30); MONOCYTES % (AUTO) 8.4 % (2.0-12.0); NEUTROPHILS # (AUTO) 7.3 /CMM (1.8-8.9); NEUTROPHILS % (AUTO) 76.9 % (43.0-81.0); PLATELET COUNT (AUTO) 175 /CMM (150-450); RDW COEFFICIENT OF VARIATION 16.9 (11.5-15.0); RED BLOOD CELL COUNT(AUTO) 2.87 MIL/uL (4.5-6.0); WHITE BLOOD COUNT (AUTO) 9.5 K/uL (4.3-11.0)
--- NOTE | 2016-08-04 05:00 | NUR ---
COMPENSATION AND BENEFITS ADVISOR - PT. REC'D DIALYSIS LAST NIGHT, STARTING AT 22:20 & ENDING AT 00:40 AM. 500CC REMOVED. PT. WAS DROWSY FOR MOST PART OF THE NIGHT,EASILY AROUSABLE. A PARTIAL BEDBATH WAS ADM. & A COMPLETE BEDBATH AT 2AM WAS ADM. PT'S PEG WAS CLOTTED AT MN. A "DECLOGGER" WAS USED. TF SHUT OFF AT 6AM DUE TO PT. SCHEDULED TO HAVE A THORACENTESIS (US GUIDED) DUE SOMETIME TODAY. PT'S SIGNED CONSENT. CONSENT IN CHART. SKIN PICTURES WERE TAKEN & PLACED IN CHART. MEPILEX TO ABD. X 3. PT.REMAINS ON LEVOPHED GTT. AT 10MCG/MIN. REPORT ENDORSED TO DIVINA [place] PAST MEDI - CATIONS THAT WERE FLASHED "PINK" IN THE MAR WERE RECOGNIZED "UNADMINISTERED" TO REMOVE THEM FROM EMAR. CONT. POC.
[2016-08-04 05:13] LABS: ALBUMIN 1.9 g/dL (3.4-5.0); BILIRUBIN,TOTAL 1.3 mg/dL (0.2-1.0); CALCIUM, SERUM 8.5 mg/dL (8.5-10.1); CREATININE 3.2 mg/dL (0.6-1.3); PHOSPHORUS 2.4 mg/dL (2.5-4.9); POTASSIUM 4.3 mmol/L (3.5-5.1)
[2016-08-04 05:24] LABS: TOTAL PROTEIN, SERUM 5.5 g/dL (6.4-8.2)
[2016-08-04] MEDS: LACTULOSE 10 G/15 ML UDC (PYXIS) PO SCH ×3 (05:39→20:35)
--- NOTE | 2016-08-04 07:30 | NUR ---
ICU/RN: PT RECEIVED IN BED, EYES CLOSED, EASY TO AROUSE BY NAME AND TOUCH, ABLE TO FOLLOW COMPLEX COMMANDS, MILD WEAKNESS NOTED ON UPPER AND LOWER BILAT EXTREMITIES. TOLERATING CURRENT VENT SETTINGS, AIRWAY CLEARED OF THIN CLEAR SECRETIONS, HOB ELEVATED PER ASPIRATION PRECAUTIONS, TOLERATING CURRENT GTF, NO RESIDUALS NOTED. LEVOPHED INFUSING AT 10 MCG/MIN, ORDERED PARAMETERS MET. ABD DISTENTION NOTED, PT DENIES PAIN ON PALPATION. WOUND CARE RENDERED, TOLERATED WELL. TURNED AND REPOSITIONED FOR COMFORT. WILL CONT TO MONITOR PT.
[2016-08-04] MEDS: ZINC SULFATE 220 MG CAPSULE GT SCH (08:45)
[2016-08-04] MEDS: LEVETIRACETAM SOL (5 ML) 100 MG/ML UDC GT SCH ×2 (08:45→16:06)
[2016-08-04] MEDS: PANTOPRAZOLE 40 MG/PACK PACK GT SCH ×2 (08:45→20:35)
[2016-08-04] MEDS: CHOLECALCIFEROL 1,000 UNIT TABLET (VIT D3) GT SCH (08:45)
[2016-08-04] MEDS: MULTIVITAMIN LIQ 5 ML UDC GT SCH (08:45)
--- NOTE | 2016-08-04 08:45 | NUR ---
ICU/RN: DR GUALBERTO LAL; ABN LABS NAYE WILKS, FOR THORACENTESIS TODAY. PT AFEBRILE, ANURIC. PER , PT FOR HD TOMORROW.
[2016-08-04] MEDS: LACTOBACILLUS RHAMNOSUS GG 1 EACH CAP.SPRINK PO SCH ×2 (08:46→16:06)
[2016-08-04] MEDS: AMIODARONE HCL 200 MG TABLET GT SCH (08:47)
[2016-08-04] MEDS: NEOMY SULF/BACITRAC ZN/POLY 15 GM TUBE TP SCH (08:47)
[2016-08-04] MEDS: Z GUARD REMEDY 2 OZ OINT TP SCH ×2 (08:47→16:06)
[2016-08-04] MEDS: NOREPINEPHRINE 16 MG in IV D5W 500 ML IV PRN (09:25)
--- NOTE | 2016-08-04 11:10 | NUR ---
ICU/RN: DR LOW AT THE BEDSIDE FOR CARDIO F/U, PT NOW NSR S/P AMIODARONE INFUSION. FOR THORACENTESIS TODAY. MD TO DC AMIODARONE PO DT LIVER FUNCTION.
--- NOTE | 2016-08-04 12:30 | NUR ---
ICU/RN: DR AU AT BEDSIDE FOR ULTRASOUND GUIDED THORACENTESIS. 1500 OF CLEAR YELLOW FLUIDS COLLECTED, DELIVERED TO LAB BY RN. PT TOLERATED PROCEDURE WELL.
[2016-08-04] MEDS: EPOETIN ALFA (10,000 UNIT) 10,000 UNIT/ML VIAL SQ SCH (15:05)
[2016-08-04] MEDS: Z GUARD REMEDY 2 OZ OINT TP PRN (16:06)
[2016-08-04 16:31] LABS: MONOCYTES,BODY FLUID 1 %; POLYNUCLEAR, BODY FLUID 90 % (0-25); TOTAL VOLUME,BODY FLUID 1500 mL; WBC, BODY FLUID 470 /cu. mm. (0-200)
[2016-08-04 16:51] LABS: GLUCOSE,BODY FLUID 135 mg/dL; PROTEIN, BODY FLUID 2.8 G/DL
[2016-08-04] MEDS: MICAFUNGIN SODIUM 100 MG in IV NS 0.9% 100 ML IV SCH (18:00)
--- NOTE | 2016-08-04 18:21 | NUR ---
RT END OF THE SHIFT REPORT: PT. 66 Y OLD MALE REMAIN TRACHED SHILEY # 8 ON VENT WITH NOTED SETTINGS, ALARMS ARE SET AND FUNCTIONAL, B/S RALES/RHONCHI BILATERALLY SUX' FOR LARGE YELLOW/DOWNEY SECRETIONS, NO DISTRESS NOTED T/O SHIFT NO CHANGES T/O SHIFT. CONTINUED FOR MONITOR. EQUAL CHEST RISE NOTED PT. HME CHANGED, MEDICAL CHARGE ENTRY SPECIALIST, AMBU BAG REMAIN AT THE BEDSIDE. REPORT WILL PASS TO PM SHIFT. Addendum: 08/04/16 at 1822 by TAMIE RAZO RT Amended: Links added.
--- NOTE | 2016-08-04 21:42 | NUR ---
PT REC'D ON SHILEY 8 TRACH. PT IS AWAKE. PT ON VENT SETTINGS CHARTED. SX'D MOD YELLOW SECRETIONS. VENT ALARMS SET AND AUDIBLE. AMBU BAG BEDSIDE. VENT IS PLUGGED IN RED OUTLET. WILL CONTINUE TO MONITOR. Addendum: 08/04/16 at 2145 by JOAQUIN THAO RT Amended: Links added.
[2016-08-05] VITALS (96 sets, daily range): BP systolic 82–116; BP diastolic 44–67
[2016-08-05] MEDS: ALBUTEROL FS 2.5 MG/3 ML VIAL.NEB NEB SCH ×4 (01:40→20:23)
[2016-08-05] MEDS: IPRATROPIUM NEB FS 0.5 MG/2.5 ML AMPUL.NEB NEB SCH ×4 (01:40→20:23)
[2016-08-05 05:16] LABS: BASOPHILS % (AUTO) 0.4 % (0.0-2.0); EOSINOPHILS # (AUTO) 0.6 /CMM (0.0-0.7); EOSINOPHILS % (AUTO) 5.9 % (0.0-6.0); HEMATOCRIT 27 % (39-51); HEMOGLOBIN 9.2 g/dL (13.5-17.5); LYMPHOCYTES # (AUTO) 1.2 /CMM (0.8-4.8); LYMPHOCYTES % (AUTO) 13.2 % (20.0-44.0); MEAN CORPUSCULAR HEMOGLOBIN 32 PG (26.0-33.0); MEAN CORPUSCULAR HGB CONC 34 g/dl (31.0-36.0); MEAN CORPUSCULAR VOLUME 93 fL (80-96); MONOCYTES # (AUTO) 1.1 /CMM (0.1-1.30); MONOCYTES % (AUTO) 11.9 % (2.0-12.0); NEUTROPHILS # (AUTO) 6.5 /CMM (1.8-8.9); NEUTROPHILS % (AUTO) 68.6 % (43.0-81.0); PLATELET COUNT (AUTO) 175 /CMM (150-450); RDW COEFFICIENT OF VARIATION 17.5 (11.5-15.0); RED BLOOD CELL COUNT(AUTO) 2.91 MIL/uL (4.5-6.0); WHITE BLOOD COUNT (AUTO) 9.4 K/uL (4.3-11.0)
[2016-08-05 05:25] LABS: CALCIUM, SERUM 8.3 mg/dL (8.5-10.1); CREATININE 3.4 mg/dL (0.6-1.3); PHOSPHORUS 3.4 mg/dL (2.5-4.9); POTASSIUM 4.3 mmol/L (3.5-5.1)
[2016-08-05] MEDS: RENAL NOVASOURCE 1,000 ML BOTTLE GT PRN ×2 (05:57→16:34)
[2016-08-05] MEDS: LACTULOSE 10 G/15 ML UDC (PYXIS) PO SCH ×3 (05:57→20:46)
[2016-08-05] MEDS: PIPERACILLIN /TAZOBACTAM 2.25 G in IV D5W 50 ML IV SCH ×2 (05:57→12:19)
--- NOTE | 2016-08-05 06:58 | NUR ---
UM NURSE PT TOLERATED BED BATH WELL. TURNED AND REPOSITIONED. NO CHANGES NOTED THROUGHOUT THE NIGHT. LEVOPHED TITRATED DOWN TO 3 MCG/MIN , PT TOLERATING WELL.
--- NOTE | 2016-08-05 07:05 | NUR ---
RN INITIAL NOTES RECEIVED PT ASLEEP, EASILY AROUSABLE. NO RESPIRATORY DISTRESS NOTED. NO SOB NOTED. NO SIGNS OF PAIN NOTED. TRACH IN PLACE. ON MECH VENT WITH FF SETTINGS: AC16, TV600, FI02 35%, PEEP+5. GT IN PLACE. TOLERATING NOVASOURCE AT 50ML/HR. IV LINES IN PLACE. ON LEVO AT 3MCG/MIN. WILL CLOSELY MONITOR BP. BLE ELEVATED. PT COMFORTABLE. WILL CONTINUE TO MONITOR.
[2016-08-05] MEDS: ZINC SULFATE 220 MG CAPSULE GT SCH (08:16)
[2016-08-05] MEDS: MULTIVITAMIN LIQ 5 ML UDC GT SCH (08:16)
[2016-08-05] MEDS: LACTOBACILLUS RHAMNOSUS GG 1 EACH CAP.SPRINK PO SCH ×2 (08:16→16:34)
[2016-08-05] MEDS: PANTOPRAZOLE 40 MG/PACK PACK GT SCH ×2 (08:16→20:47)
[2016-08-05] MEDS: LEVETIRACETAM SOL (5 ML) 100 MG/ML UDC GT SCH ×2 (08:16→16:34)
[2016-08-05] MEDS: CHOLECALCIFEROL 1,000 UNIT TABLET (VIT D3) GT SCH (08:17)
[2016-08-05] MEDS: Z GUARD REMEDY 2 OZ OINT TP SCH ×2 (08:17→16:34)
[2016-08-05] MEDS: NEOMY SULF/BACITRAC ZN/POLY 15 GM TUBE TP SCH (08:17)
[2016-08-05] MEDS: NOREPINEPHRINE 16 MG in IV D5W 500 ML IV PRN (09:12)
--- NOTE | 2016-08-05 09:15 | NUR ---
RN NOTES DIALYSIS STARTED. NO RESPIRATORY DISTRESS NOTED. NO SOB NOTED. NO SIGNS OF PAIN NOTED. ON MECH VENT. ON LEVO, WILL TITRATE ACCORDINGLY. Addendum: 08/05/16 at 1220 by TIERA PARK RN 1215 DIALYSIS ENDED. REMOVED 1L. NO RESPIRATORY DISTRESS NOTED. NO SOB NOTED. NO SIGNS OF PAIN NOTED. TOLERATED WELL. WILL CONTINUE TO MONITOR.
[2016-08-05] MEDS: AMIKACIN 500 MG in IV D5W 100 ML IV PRN (13:01)
--- NOTE | 2016-08-05 13:25 | NUR ---
RN NOTES SEEN AND EXAMINED BY DR. FIDENCIO BURCIAGA. AWARE OF CURRENT LAB RESULTS. DIALYSIS DONE. 1L OUT. NO NEW ORDER.
[2016-08-05] MEDS: VANCOMYCIN 500 MG in IV D5W 100 ML IV PRN (13:45)
--- NOTE | 2016-08-05 13:45 | NUR ---
RN NOTES SEEN AND EXAMINED BY DR. BALTAZAR. NOTED PT HR ON 110-120S, A.FIB THEN WILL BE SINUS RHYTHM ON 80-90S.. DIALYSIS DONE. ORDERED AMIO DRIP. NOTED AND CARRIED OUT. Addendum: 08/05/16 at 1652 by TIERA PARK RN 1500 AMIO BOLUS AND DRIP STARTED. PT BACK ON SINUS RHYTHM AT 60S-80S. DR. BALTAZAR AWARE. PER , CONTINUE AMIO DRIP ORDERED. WILL CONTINUE TO MONITOR.
[2016-08-05] MEDS ORDERED: AMIODARONE 150 MG in IV D5W 100 ML IV ONE (14:00)
[2016-08-05] MEDS ORDERED: AMIODARONE 900 MG in IV D5W 482 ML IV PRN (14:00)
[2016-08-05] MEDS ORDERED: IV SET PRIMARY PUMP SET 1 EA INFUS.SET MC ONE (14:16)
--- NOTE | 2016-08-05 15:40 | NUR ---
RN NOTES SEEN AND EXAMINED BY DR. PLUNKETT. AWARE OF ABG RESULT. TOLERATING VENT WELL. NO RESPIRATORY DISTRESS NOTED. NO SOB NOTED. KEPT HOB ELEVATED. NO NEW ORDER
--- NOTE | 2016-08-05 17:29 | NUR ---
RT END OF THE SHIFT REPORT: PT. 66 Y OLD MALE REMAIN TRACHED SHILEY # 8 ON VENT WITH NOTED SETTINGS, ALARMS ARE SET AND FUNCTIONAL, B/S RALES/RHONCHI BILATERALLY SUX' FOR MINIMAL DOWNEY/CLEAR SECRETIONS, NO DISTRESS NOTED T/O SHIFT CONTINUED FOR MONITOR. VENT PLUGGED INTO RED OUTLET. TX'S GIVEN INLINE Q6 AND NO ADVERSE REACTION NOTED. EQUAL CHEST RISE NOTED. HME CHANGED, AMBU BAG REMAIN AT THE BEDSIDE. PT. REMAIN STABLE. REPORT WILL BE PASS TO PM SHIFT. Addendum: 08/05/16 at 1730 by TAMIE RAZO RT Amended: Links added.
[2016-08-05] MEDS: MICAFUNGIN SODIUM 100 MG in IV NS 0.9% 100 ML IV SCH (18:05)
--- NOTE | 2016-08-05 18:36 | NUR ---
RN CLOSING NOTES [facility]. TRACH IN [facility]. NO RESPIRATORY DISTRESS NOTED. DENIES ANY PAIN. KEPT HOB ELEVATED. ON LEVOPHED, TITRATED ACCORDINGLY. STARTED ON AMIO DRIP. PT ON SINUS RHYTHM ON 70-80S. IV LINES INTACT. GT IN PLACE. TOLERATING GTF WELL. KEPT CLEAN AND DRY. REPOSITIONED Q2. KEPT BLE ELEVATED. KEPT COMFORTABLE. CALL LIGHT WITHIN REACH. WILL ENDORSE FOR CONTINUITY OF CARE.
--- NOTE | 2016-08-05 20:30 | NUR ---
STEREOPLOTTER OPERATOR PT C/O ABD PAIN . BOWEL SOUNDS ACTIVE X4 QUADRANTS. ABDOMINAL DISTENTION NOTED. REPOSITIONED FOR COMFORT BUT PT IS STILL UNCOMFORTABLE. CALLED FENCE MAKING MACHINE OPERATOR FOR DR ALBERTO. DR CHRISTENSEN AWARE OF PTS LIVER CIRRHOSIS . GAVE ORDER FOR MORPHINE PRN PAIN EVERY 2 HOURS , CAN BE GIVEN IV OR IM . CALLED PHARMACY TO VERIFY .
--- NOTE | 2016-08-05 20:45 | NUR ---
PT RECEIVED ON VENT VIA TRACH, SETTINGS CHARTED AMBU BAG AT BEDSIDE ALARMS SET AND AUDIBLE SUCTIONED A SMALL AMOUNT OF THICK WHITE SECRETIONS BREATH SOUNDS EQUAL BILATERAL COARSE PT RECEIVING ALBUTEROL AND ATROVENT Q6 Addendum: 08/05/16 at 2045 by BRIAN BARRIOS RT Amended: Links added.
--- NOTE | 2016-08-05 20:50 | NUR ---
DISTILLATION OPERATOR PAIN MEDS GIVEN FOR DISCOMFORT. NO SIGN OF ADVERSE REACTIONS NOTED. WILL CONT TO MONITOR.
[2016-08-05] MEDS: MORPHINE SULFATE INJ 2 MG/ML DISP.SYRIN IV PRN (20:52)
[2016-08-05] MEDS ORDERED: MORPHINE SULFATE INJ 2 MG/ML DISP.SYRIN IM PRN (21:00)
--- NOTE | 2016-08-05 21:00 | NUR ---
DIGITAL DESIGN ENGINEER ONLY ONE DOSE OF LACTULOSE TAKEN FROM PYXIS . SECOND DOSE WAS AN ERROR AND NOT REMOVED FROM PYXIS.
[2016-08-06] VITALS (88 sets, daily range): BP systolic 88–117; BP diastolic 46–76
[2016-08-06] MEDS: IV NS 0.9% 250 ML IV PRN (00:05)
[2016-08-06] MEDS: ALBUTEROL FS 2.5 MG/3 ML VIAL.NEB NEB SCH ×4 (02:13→19:54)
[2016-08-06] MEDS: IPRATROPIUM NEB FS 0.5 MG/2.5 ML AMPUL.NEB NEB SCH ×4 (02:13→19:53)
[2016-08-06 04:41] LABS: CALCIUM, SERUM 8.2 mg/dL (8.5-10.1); CREATININE 2.9 mg/dL (0.6-1.3)
[2016-08-06] MEDS: LACTULOSE 10 G/15 ML UDC (PYXIS) PO SCH ×3 (05:05→21:37)
--- NOTE | 2016-08-06 07:05 | NUR ---
RN INITIAL NOTES RECEIVED PT AWAKE, A/OX2. TRACH IN PLACE. ON MECH VENT. NO RESPIRATORY DISTRESS NOTED. DENIES ANY PAIN. IV LINES INTACT. ON AMIO DRIP AT 0.5MG/MIN AND LEVO AT 3MCG/MIN. WILL CLOSELY MONITOR BP AND HR GT IN PLACE. TOLERATING GTF WELL. WILL MONITOR FOR RESIDUAL. PT COMFORTABLE. WILL CONTINUE TO MONITOR.
[2016-08-06] MEDS: PANTOPRAZOLE 40 MG/PACK PACK GT SCH ×2 (08:14→21:37)
[2016-08-06] MEDS: MULTIVITAMIN LIQ 5 ML UDC GT SCH (08:14)
[2016-08-06] MEDS: ZINC SULFATE 220 MG CAPSULE GT SCH (08:14)
[2016-08-06] MEDS: CHOLECALCIFEROL 1,000 UNIT TABLET (VIT D3) GT SCH (08:14)
[2016-08-06] MEDS: LEVETIRACETAM SOL (5 ML) 100 MG/ML UDC GT SCH ×2 (08:14→16:34)
[2016-08-06] MEDS: Z GUARD REMEDY 2 OZ OINT TP SCH ×2 (08:14→16:35)
[2016-08-06] MEDS: LACTOBACILLUS RHAMNOSUS GG 1 EACH CAP.SPRINK PO SCH ×2 (08:14→16:34)
[2016-08-06] MEDS: NEOMY SULF/BACITRAC ZN/POLY 15 GM TUBE TP SCH (08:14)
--- NOTE | 2016-08-06 08:17 | NUR ---
WOUND CARE CONSULT: PT SEEN FOR SKIN TEAR TO RT UPPER BACK FROM PREVIOUSLY REMOVED DRESSING AFTER PROCEDURE. RECOMMENDATIONS MADE FOR SKIN PROTECTION AND WOUND CARE. DISCUSSED WITH NURSING STAFF. PT ON FIRST STEP BENJAMIN. IN AGREEMENT WITH PLAN OF CARE. Addendum: 08/06/16 at 0822 by LUDWIG JIMÉNEZ WNDNU Amended: Links added.
--- NOTE | 2016-08-06 08:50 | NUR ---
RN NOTES SEEN AND EXAMINED BY DR PLUNKETT. PT TOLERATING VENT WELL. NO RESPIRATORY DISTRESS NOTED. PT ON LEVO AT 4MCG/MIN. SBP 90S, MAP 60S. MD ORDERED REMOVE PEEP. NOTED AND CARRIED OUT. WILL MONITOR.
--- NOTE | 2016-08-06 09:10 | NUR ---
RN NOTES SEEN AND EXAMINED BY DR. BALTAZAR. PT I=ON AMIO AT 0.5MG/MIN. PT ON SINUS RHYTHM AT 60-80S. PER MD, NO PO AMIODARONE ONCE IV IS DONE. WILL CONTINUE TO MONITOR.
--- NOTE | 2016-08-06 09:30 | NUR ---
RN NOTES SEEN AND EXAMINED BY DR. TAMIR CHRISTENSEN. AWARE OF CURRENT LAB AND CXR RESULT. LAST HD 08/05, 1L OUT. NO NEW ORDER
[2016-08-06] MEDS: NOREPINEPHRINE 16 MG in IV D5W 500 ML IV PRN (09:35)
[2016-08-06] MEDS: RENAL NOVASOURCE 1,000 ML BOTTLE GT PRN (11:42)
[2016-08-06] MEDS: EPOETIN ALFA (10,000 UNIT) 10,000 UNIT/ML VIAL SQ SCH (15:36)
[2016-08-06] MEDS: MICAFUNGIN SODIUM 100 MG in IV NS 0.9% 100 ML IV SCH (18:03)
--- NOTE | 2016-08-06 18:35 | NUR ---
RN CLOSING NOTES PT REMAINS STABLE. NO SIGNIFICANT CHANGE NOTED. NO RESPIRATORY DISTRESS NOTED. DENIES ANY PAIN. TOLERATES VENT. TRACH IN PLACE. IN LINES IN PLACE. REMAINS ON LEVO, TITRATED. GT IN PLACE. TOLERATES GTF. FC INTACT. KEPT CLEAN AND DRY. REPOSITIONED Q2. KEPT BLE ELEVATED. CALL LIGHT WITHIN REACH. WILL ENDORSE FOR CONTINUITY OF CARE.
--- NOTE | 2016-08-06 20:42 | NUR ---
received pt from day shift, alert, follows commands, confused at times, SR, receiving levo at 1mcg, on the vent, lungs congested, no edema, abd mildly distended, GT to feeding tolerates well, anuric, HD patient, v/s stable, no pain, pt turned and repositioned.
--- NOTE | 2016-08-06 22:18 | NUR ---
PT RECEIVED TRACH ON VENT SHLY 8. PT TOLERATING VENT SETTINGS. PT IS AWAKE AND ALERT NO RESP DISTRESS NOTED. SX'D FOR MOD AMT OF THICK WHITE SECRETIONS. VENT ALARMS SET AND AUDIBLE. AMBU BAG AT BEDSIDE. VENT PLUGGED INTO RED OUTLET. WILL CONTINUE TO MONITOR. Addendum: 08/06/16 at 2219 by FERNANDO CALLES RT Amended: Links added.
[2016-08-06] MEDS ORDERED: IV NS 0.9% 250 ML IV ONE (23:02)
[2016-08-07] VITALS (75 sets, daily range): BP systolic 87–119; BP diastolic 47–73
--- NOTE | 2016-08-07 00:46 | NUR ---
pt is resting in the bed, tolerates feeding, v/s stable, no pain, pt turned and repositioned q2hrs.
[2016-08-07] MEDS: IPRATROPIUM NEB FS 0.5 MG/2.5 ML AMPUL.NEB NEB SCH ×4 (01:08→19:50)
[2016-08-07] MEDS: ALBUTEROL FS 2.5 MG/3 ML VIAL.NEB NEB SCH ×4 (01:08→19:50)
--- NOTE | 2016-08-07 04:20 | NUR ---
pt is resting in the bed, no acute distress overnight, tolerates feeding, v/s stable, no pain, pt cleaned, changed and repositioned.
[2016-08-07] MEDS: LACTULOSE 10 G/15 ML UDC (PYXIS) PO SCH ×3 (05:21→21:15)
[2016-08-07 05:23] LABS: CALCIUM, SERUM 8.6 mg/dL (8.5-10.1); CREATININE 3.2 mg/dL (0.6-1.3); POTASSIUM 4.3 mmol/L (3.5-5.1)
--- NOTE | 2016-08-07 07:05 | NUR ---
RN INITIAL NOTES RECEIVED PT AWAKE, A/OX2. NO RESPIRATORY DISTRESS NOTED. DENIES ANY PAIN. ON MECH VENT, TOLERATING WELL. TRACH IN PLACE. IV LINES IN PLACE. HD CATH ON LEFT CHESTWALL INTACT. ON AMIO DRIP AT 2MCG/MIN, WILL TITRATE PER PROTOCOL. BLE ELEVATED. PT COMFORTABLE. CALL LIGHT WITHIN REACH. WILL CONTINUE TO MONITOR.
[2016-08-07 08:21] LABS: BASOPHILS % (AUTO) 0.3 % (0.0-2.0); EOSINOPHILS # (AUTO) 0.4 /CMM (0.0-0.7); EOSINOPHILS % (AUTO) 3.8 % (0.0-6.0); HEMATOCRIT 26 % (39-51); HEMOGLOBIN 8.7 g/dL (13.5-17.5); LYMPHOCYTES # (AUTO) 1.2 /CMM (0.8-4.8); LYMPHOCYTES % (AUTO) 13.5 % (20.0-44.0); MEAN CORPUSCULAR HEMOGLOBIN 31 PG (26.0-33.0); MEAN CORPUSCULAR HGB CONC 34 g/dl (31.0-36.0); MEAN CORPUSCULAR VOLUME 93 fL (80-96); MONOCYTES # (AUTO) 0.9 /CMM (0.1-1.30); MONOCYTES % (AUTO) 9.9 % (2.0-12.0); NEUTROPHILS # (AUTO) 6.7 /CMM (1.8-8.9); NEUTROPHILS % (AUTO) 72.5 % (43.0-81.0); PLATELET COUNT (AUTO) 152 /CMM (150-450); RDW COEFFICIENT OF VARIATION 18.1 (11.5-15.0); RED BLOOD CELL COUNT(AUTO) 2.78 MIL/uL (4.5-6.0); WHITE BLOOD COUNT (AUTO) 9.2 K/uL (4.3-11.0)
[2016-08-07] MEDS: PANTOPRAZOLE 40 MG/PACK PACK GT SCH ×2 (08:28→21:15)
[2016-08-07] MEDS: CHOLECALCIFEROL 1,000 UNIT TABLET (VIT D3) GT SCH (08:28)
[2016-08-07] MEDS: NEOMY SULF/BACITRAC ZN/POLY 15 GM TUBE TP SCH (08:28)
[2016-08-07] MEDS: ZINC SULFATE 220 MG CAPSULE GT SCH (08:29)
[2016-08-07] MEDS: Z GUARD REMEDY 2 OZ OINT TP SCH ×2 (08:29→16:26)
[2016-08-07] MEDS: LACTOBACILLUS RHAMNOSUS GG 1 EACH CAP.SPRINK PO SCH ×2 (08:29→16:26)
[2016-08-07] MEDS: LEVETIRACETAM SOL (5 ML) 100 MG/ML UDC GT SCH ×2 (08:29→16:26)
[2016-08-07] MEDS: MULTIVITAMIN LIQ 5 ML UDC GT SCH (08:29)
--- NOTE | 2016-08-07 09:00 | NUR ---
RN NOTES SEEN AND EXAMINED BY DR. FIDENCIO BURCIAGA. AWARE OF HGB 8.7, HCT 26. NO SIGNS OF ACTIVE BLEEDING NOTED. SODIUM 128, BUN 56, CREA 3.2. PT ON LEVO AT 1MCG/MIN. PER MD, HD TODAY. ORDERED LABS IN AM. NOTED AND CARRIED OUT
[2016-08-07] MEDS: NOREPINEPHRINE 16 MG in IV D5W 500 ML IV PRN (09:09)
--- NOTE | 2016-08-07 09:35 | NUR ---
RN NOTES SEEN AND EXAMINED BY DR. BALTAZAR. AWARE OF LAB AND CXR RESULTS. PT STIL ON LEVO AT 1MCG/MIN. HD TODAY. AMIO DRIP OFF 08/06/16 AT 1445, SINUS RHYTHM ON MONITOR. NNO.
--- NOTE | 2016-08-07 10:50 | NUR ---
RN NOTES DIALYSIS STARTED. NO RESPIRATORY DISTRESS NOTED. NO SIGNS OF PAIN NOTED. WILL MONITOR
--- NOTE | 2016-08-07 10:58 | NUR ---
RN NOTES NOTED PT A.FIB ON 110-120S. CALLED DR. BALTAZAR AND ORDERED START AMIO 200MG Q12. NOTED AND CARRIED OUT. WILL MONITOR. Addendum: 08/07/16 at 1144 by TIERA PARK RN WILL TITRATE LEVO ACCORDINGLY
[2016-08-07] MEDS: AMIODARONE HCL 200 MG TABLET GT SCH ×2 (11:21→21:16)
--- NOTE | 2016-08-07 12:25 | NUR ---
RN NOTES DR. BALTAZAR CALLED. PT HR 120S, A.FIB. DIALYSIS ONGOING, TOLERATING WELL. LEVO TITRATED. ORDERED AMIO BOLUS. NOTED AND CARRIED OUT.
[2016-08-07] MEDS ORDERED: AMIODARONE 150 MG in IV D5W 100 ML IV ONE (12:30)
[2016-08-07] MEDS: MORPHINE SULFATE INJ 2 MG/ML DISP.SYRIN IV PRN (13:12)
[2016-08-07] MEDS ORDERED: IV SET PRIMARY PUMP SET 1 EA INFUS.SET MC ONE (13:24)
--- NOTE | 2016-08-07 13:45 | NUR ---
RN NOTES DIALYSIS DONE. REMOVED 1.2L. NO RESPIRATORY DISTRESS NOTED. NO SOB NOTED. DENIES ANY PAIN. TOLERATED WELL. WILL MONITOR.
[2016-08-07] MEDS: VANCOMYCIN 500 MG in IV D5W 100 ML IV PRN (13:47)
[2016-08-07] MEDS: RENAL NOVASOURCE 1,000 ML BOTTLE GT PRN (16:26)
[2016-08-07] MEDS: MICAFUNGIN SODIUM 100 MG in IV NS 0.9% 100 ML IV SCH (18:00)
--- NOTE | 2016-08-07 18:44 | NUR ---
RN CLOSING NOTES NO SIGNIFICANT CHANGE NOTED. NO RESPIRATORY DISTRESS NOTED. DENIES ANY PAIN. IV LINES IN PLACE. GT INTACT. TOLERATING GTF WELL. TX PROVIDED ORDERED. KEPT CLEAN AND DRY. REPOSITIONED Q2. KEPT BLE ELEVATED. KEPT COMFORTABLE. ALL NEEDS ATTENDED AND MET. CALL LIGHT WITHIN REACH. WILL ENDORSE FOR CONTINUITY OF CARE.
[2016-08-07] MEDS: AMIKACIN 500 MG in IV D5W 100 ML IV PRN (19:01)
--- NOTE | 2016-08-07 20:55 | NUR ---
received pt from day shift, alert, follows commands, SR, on the vent, lungs congested, some non pitting edema throughout, abdomen distended, GT to feeding tolerates well, anuric, HD today, v/s stable, no pain, pt turned and repositioned.
[2016-08-08] VITALS (39 sets, daily range): BP systolic 89–133; BP diastolic 42–66
--- NOTE | 2016-08-08 00:45 | NUR ---
pt is resting in the bed, v/s stable, no pain, pt turned and repositioned q2hrs.
[2016-08-08] MEDS ORDERED: IV NS 0.9% 250 ML IV ONE (01:23)
[2016-08-08] MEDS: IPRATROPIUM NEB FS 0.5 MG/2.5 ML AMPUL.NEB NEB SCH ×4 (01:42→20:37)
[2016-08-08] MEDS: ALBUTEROL FS 2.5 MG/3 ML VIAL.NEB NEB SCH ×4 (01:43→20:37)
--- NOTE | 2016-08-08 04:32 | NUR ---
pt is resting in the bed, no acute distress overnight, tolerates feeding, one BM, v/s stable, no pain, pt cleaned, changed and repositioned q2hrs.
[2016-08-08 04:49] LABS: BASOPHILS % (AUTO) 0.3 % (0.0-2.0); EOSINOPHILS # (AUTO) 0.1 /CMM (0.0-0.7); EOSINOPHILS % (AUTO) 0.5 % (0.0-6.0); HEMATOCRIT 27 % (39-51); MEAN CORPUSCULAR HEMOGLOBIN 32 PG (26.0-33.0); MEAN CORPUSCULAR HGB CONC 34 g/dl (31.0-36.0); MEAN CORPUSCULAR VOLUME 94 fL (80-96); MONOCYTES # (AUTO) 1.1 /CMM (0.1-1.30); MONOCYTES % (AUTO) 9.1 % (2.0-12.0); NEUTROPHILS # (AUTO) 10.3 /CMM (1.8-8.9); NEUTROPHILS % (AUTO) 82.1 % (43.0-81.0); PLATELET COUNT (AUTO) 140 /CMM (150-450); WHITE BLOOD COUNT (AUTO) 12.6 K/uL (4.3-11.0)
[2016-08-08 04:58] LABS: CALCIUM, SERUM 8.2 mg/dL (8.5-10.1); CREATININE 2.8 mg/dL (0.6-1.3); MAGNESIUM 2.1 mg/dL (1.8-2.4); PHOSPHORUS 2.9 mg/dL (2.5-4.9)
[2016-08-08] MEDS: LACTULOSE 10 G/15 ML UDC (PYXIS) PO SCH ×3 (05:25→21:09)
--- NOTE | 2016-08-08 08:04 | NUR ---
LAW ENFORCEMENT OFFICER: pt.is A/Ox2, no c/o, no pain now, SR, SBP over 90, GTF residual WNL, keep HOB over 35, O2 sat WNL, on Amikacin, Vanco, next HD?, abdomen is distended, no pain, pressor is off since last night
[2016-08-08] MEDS: LEVETIRACETAM SOL (5 ML) 100 MG/ML UDC GT SCH ×2 (08:48→17:07)
[2016-08-08] MEDS: MULTIVITAMIN LIQ 5 ML UDC GT SCH (08:48)
[2016-08-08] MEDS: AMIODARONE HCL 200 MG TABLET GT SCH ×2 (08:49→21:10)
[2016-08-08] MEDS: LACTOBACILLUS RHAMNOSUS GG 1 EACH CAP.SPRINK PO SCH ×2 (08:49→17:07)
[2016-08-08] MEDS: PANTOPRAZOLE 40 MG/PACK PACK GT SCH ×2 (08:49→21:09)
[2016-08-08] MEDS: CHOLECALCIFEROL 1,000 UNIT TABLET (VIT D3) GT SCH (08:49)
[2016-08-08] MEDS: NEOMY SULF/BACITRAC ZN/POLY 15 GM TUBE TP SCH (08:49)
[2016-08-08] MEDS: ZINC SULFATE 220 MG CAPSULE GT SCH (08:49)
[2016-08-08] MEDS: Z GUARD REMEDY 2 OZ OINT TP PRN (08:50)
[2016-08-08] MEDS: Z GUARD REMEDY 2 OZ OINT TP SCH ×2 (09:02→17:07)
--- NOTE | 2016-08-08 10:11 | NUR ---
FIRE CAPTAIN MARINE: is in room, updated with pt.current condition, VS, I/O, GTF, labs, meds, HD, see new order
--- NOTE | 2016-08-08 13:00 | NUR ---
DIRECTOR OF TAX SERVICES: notified re pt.VS, pressor off, O2 sat., I/O, GTF, HD, see new orders
[2016-08-08] MEDS: EPOETIN ALFA (10,000 UNIT) 10,000 UNIT/ML VIAL SQ SCH (14:56)
--- NOTE | 2016-08-08 16:13 | NUR ---
NEWS INTERN: pt.had large white/yellow saliva spit out episode, no GTF consistency, suctioned again orally/via trach, GTF residual 10ml, hold GTF for 30 min and reV, pt.shows: he's ok, repositioned, continue keep 40-45 degree HOB, pt.refused to change gown, trach care done, no c/o
--- NOTE | 2016-08-08 16:45 | NUR ---
BOX PERSON: no nausea/vomiting, no c/o, orally/via trach suctioned, GTF residual 10ml, O2 sat WNL, cont.HOB over 35-40degree
[2016-08-08] MEDS: RENAL NOVASOURCE 1,000 ML BOTTLE GT PRN (17:31)
--- NOTE | 2016-08-08 18:00 | NUR ---
STOCKLAYER: pt.was transferred to [facility] after full report for JEREMY [place]
[2016-08-08] MEDS: MICAFUNGIN SODIUM 100 MG in IV NS 0.9% 100 ML IV SCH (18:08)
--- NOTE | 2016-08-08 18:14 | NUR ---
[facility] RN NOTE RECEIVED PATIENT FROM ICU ALERT , ABLE TO FOLLOW COMMAND , WITH TRACH TO VENT SETTING ORDERED, AMBU BAG AT HOB , WITH GTUBE FEEDING ORDERED KEEP HOB ELEVATED AT ALL TIME , LT UPPER ARM PICC LINE IN PLACE, NO S\S INFECTION NOTED , BED IN LOWEST AND LOCKED POSITION PLACED ON TELE MONITOR , ON [employer]RASS FOR SKIN MANAGEMENT AND BOTH LEGS WITH DVT PUMPS , WILL CONT TO MONITOR CLOSELY
--- NOTE | 2016-08-08 19:30 | NUR ---
[facility] RN INITIAL NOTE RECEIVED REPORT FROM JOAO LUNA. PT IN BED AWAKE AND ALERT, ABLE TO MAKE NEEDS KNOWN. PT LUNG SOUNDS RHONCHI. BOWEL SOUNDS PRESENT, GT PATENT AND INTACT. IV PATENT AND INTACT. ANURIC. RIGHT CHEST WALL HD ACCESS. PULSES PRESENT IN ALL EXTREMITIES. BED IN LOW LOCKED POSITION. CALL LIGHT WITHIN REACH. WILL CONTINUE TO MONITOR. PT HAD BOWEL MOVEMENT, CLEANED AND REPOSITIONED.
[2016-08-09] VITALS: BP 127/61
[2016-08-09] MEDS: IPRATROPIUM NEB FS 0.5 MG/2.5 ML AMPUL.NEB NEB SCH ×4 (01:50→20:12)
[2016-08-09] MEDS: ALBUTEROL FS 2.5 MG/3 ML VIAL.NEB NEB SCH ×4 (01:51→20:12)
--- NOTE | 2016-08-09 02:48 | NUR ---
[facility] RN PT HEART RATE CONVERTED TO UNCONTROLLED AFIB. RATE 150-160'S. PT IS AWAKE, ALERT, MOUTHS WORDS. NOT MOUTHING PAIN. PT IS RESTLESS. MORPHINE TO BE ADMINISTERED. WILL MONITOR.
[2016-08-09] MEDS: MORPHINE SULFATE INJ 2 MG/ML DISP.SYRIN IV PRN (02:57)
--- NOTE | 2016-08-09 03:20 | NUR ---
[facility] RN DR CROW PILATES COORDINATOR FOR DR BALTAZAR. SPOKE WITH DR CROW REGARDING PT. CHANGE IN CONDITION. DR CROW ORDERED AMIO 200MG PO NOW AND TO INCREASE AMIO TO 400MG BID FOR AFIB WITH RVR. WILL CONTINUE TO MONITOR.
[2016-08-09] MEDS ORDERED: AMIODARONE HCL 200 MG TABLET ONE (03:22)
[2016-08-09] MEDS ORDERED: AMIODARONE HCL 200 MG TABLET PO SCH (03:30)
[2016-08-09 04:00] VITALS: BP 111/56
[2016-08-09] MEDS: LACTULOSE 10 G/15 ML UDC (PYXIS) PO SCH ×3 (05:11→21:46)
--- NOTE | 2016-08-09 05:15 | NUR ---
[facility] RN PT CONVERTED INTO SR HR 88. PT IS RESTING COMFORTABLY. WILL CONTINUE TO MONITOR.
[2016-08-09] MEDS: IV NS 0.9% 250 ML IV PRN (05:24)
--- NOTE | 2016-08-09 07:00 | NUR ---
RN NOTE RECEIVED PT ON BED ,AWAKE AND ALERT, ABLE TO MAKE NEEDS KNOWN. VENT DEPENDENT , TRACH CARE DONE, ON TELE SR IN 80'S , BOWEL SOUNDS PRESENT, GT NOVASOURCE AT 50CC/HR RUNNING VIA GT SITE , LEFT UPPER ARM PICC LINE AND R CW HD CATH SITES CDI, ANURIC. PULSES PRESENT IN ALL EXTREMITIES. BED IN LOW AND LOCKED POSITION. SR UP x3, CALL LIGHT WITHIN REACH. WILL CONTINUE TO MONITOR PT CLOSELY AND NOTIFY MD FOR ANY SIGNIFICANT CHANGES .
[2016-08-09 08:00] VITALS: BP 109/57
[2016-08-09] MEDS: AMIODARONE HCL 200 MG TABLET PO SCH ×2 (08:26→21:48)
[2016-08-09] MEDS: CHOLECALCIFEROL 1,000 UNIT TABLET (VIT D3) GT SCH (08:27)
[2016-08-09] MEDS: MULTIVITAMIN LIQ 5 ML UDC GT SCH (08:27)
[2016-08-09] MEDS: PANTOPRAZOLE 40 MG/PACK PACK GT SCH ×2 (08:27→21:48)
[2016-08-09] MEDS: LEVETIRACETAM SOL (5 ML) 100 MG/ML UDC GT SCH ×2 (08:27→16:35)
[2016-08-09] MEDS: LACTOBACILLUS RHAMNOSUS GG 1 EACH CAP.SPRINK PO SCH ×2 (08:27→16:35)
[2016-08-09] MEDS: ZINC SULFATE 220 MG CAPSULE GT SCH (08:27)
[2016-08-09] MEDS: NEOMY SULF/BACITRAC ZN/POLY 15 GM TUBE TP SCH (08:28)
[2016-08-09] MEDS: Z GUARD REMEDY 2 OZ OINT TP PRN ×2 (08:28→16:36)
[2016-08-09] MEDS: Z GUARD REMEDY 2 OZ OINT TP SCH ×2 (08:29→16:36)
[2016-08-09 12:00] VITALS: BP 116/59
--- NOTE | 2016-08-09 12:00 | NUR ---
RN NOTES TRACH CARE DONE, TOLERATING TF WELL , NO RESIDUAL NOTED ,L UPPER ARM PICC LINE CDI, VSS STABLE, PT MEDICATED PER MD ORDER, NO SIGNIFICANT CHANGES NOTED ON THIS SHIFT
[2016-08-09 16:00] VITALS: BP 111/54
[2016-08-09] MEDS: RENAL NOVASOURCE 1,000 ML BOTTLE GT PRN (16:35)
[2016-08-09] MEDS: MICAFUNGIN SODIUM 100 MG in IV NS 0.9% 100 ML IV SCH (18:18)
--- NOTE | 2016-08-09 19:01 | NUR ---
RN NOTES PT REMAINS STABLE, NO SIGNIFICANT CHANGES NOTED ON THIS SHIFT
--- NOTE | 2016-08-09 19:45 | NUR ---
RN INITIAL NOTE RECEIVED PT IN NO ACUTE DISTRESS IN BED. PT IS A/O X 3 AND ABLE TO MOUTH WORDS TO MAKE NEEDS KNOWN. PT IS ON MECHANICAL VENTILATION VIA TRACH. TRACH SITE IS CLEAN DRY AND INTACT. PT TOLERATING VENT SETTING WELL WITH O2 SAT @ 100%. PT IS ON TELE WITH SR ON THE MONITOR. PT HAS GTUBE THAT IS CLEAN DRY INTACT AND PATENT WITH NOVASOURCE @ 50ML/HR AND TOLERATING WELL WITH 0 RESIDUAL. PT HAS OBDULIA PICC LINE THAT IS CLEAN DRY INTACT AND PATENT. BED IN LOW LOCK POSITION WITH RIALS UP X 2. CALL LIGHT WITHIN REACH AND ALL SAFETY MEASURES ENSURED AND CARRIED OUT. WILL CONTINUE TO MONITOR PT.
[2016-08-09 20:00] VITALS: BP 116/55
[2016-08-10] VITALS: BP 105/54
[2016-08-10] MEDS: IPRATROPIUM NEB FS 0.5 MG/2.5 ML AMPUL.NEB NEB SCH ×4 (02:15→19:31)
[2016-08-10] MEDS: ALBUTEROL FS 2.5 MG/3 ML VIAL.NEB NEB SCH ×4 (02:15→19:31)
[2016-08-10 04:00] VITALS: BP 100/51
[2016-08-10] MEDS: LACTULOSE 10 G/15 ML UDC (PYXIS) PO SCH ×3 (05:31→20:05)
--- NOTE | 2016-08-10 07:27 | NUR ---
RN CLOSING NOTE PT REMAINS IN NO ACUTE DISTRESS IN BED. PT DID NOT HAVE ANY SIGNIFICANT CHANGE IN CONDITION DURING SHIFT. PT STAYED IN SR THROUGHOUT SHIFT. PT TOLERATED VENT SETTING WELL. WILL ENDORSE CARE TO AM RN FOR CONTINUITY OF CARE.
[2016-08-10 08:00] VITALS: BP 111/48
[2016-08-10 08:32] LABS: HEMATOCRIT 28 % (39-51); HEMOGLOBIN 9.4 g/dL (13.5-17.5); LYMPHOCYTES # (AUTO) 0.7 /CMM (0.8-4.8); LYMPHOCYTES % (AUTO) 4.8 % (20.0-44.0); MEAN CORPUSCULAR HEMOGLOBIN 32 PG (26.0-33.0); MEAN CORPUSCULAR HGB CONC 34 g/dl (31.0-36.0); MEAN CORPUSCULAR VOLUME 94 fL (80-96); MONOCYTES # (AUTO) 1.2 /CMM (0.1-1.30); MONOCYTES % (AUTO) 8.2 % (2.0-12.0); NEUTROPHILS # (AUTO) 12.8 /CMM (1.8-8.9); PLATELET COUNT (AUTO) 115 /CMM (150-450); RDW COEFFICIENT OF VARIATION 17.7 (11.5-15.0); RED BLOOD CELL COUNT(AUTO) 2.94 MIL/uL (4.5-6.0); WHITE BLOOD COUNT (AUTO) 14.7 K/uL (4.3-11.0)
[2016-08-10 08:47] LABS: CALCIUM, SERUM 8.5 mg/dL (8.5-10.1); CREATININE 3.5 mg/dL (0.6-1.3); PHOSPHORUS 3.4 mg/dL (2.5-4.9); POTASSIUM 4.2 mmol/L (3.5-5.1)
[2016-08-10] MEDS: ZINC SULFATE 220 MG CAPSULE GT SCH (09:22)
[2016-08-10] MEDS: CHOLECALCIFEROL 1,000 UNIT TABLET (VIT D3) GT SCH (09:22)
[2016-08-10] MEDS: MULTIVITAMIN LIQ 5 ML UDC GT SCH (09:22)
[2016-08-10] MEDS: LEVETIRACETAM SOL (5 ML) 100 MG/ML UDC GT SCH ×2 (09:22→17:44)
[2016-08-10] MEDS: PANTOPRAZOLE 40 MG/PACK PACK GT SCH ×2 (09:22→20:05)
[2016-08-10] MEDS: AMIODARONE HCL 200 MG TABLET PO SCH ×2 (09:23→20:08)
[2016-08-10] MEDS: LACTOBACILLUS RHAMNOSUS GG 1 EACH CAP.SPRINK PO SCH ×2 (09:23→17:44)
[2016-08-10] MEDS: NEOMY SULF/BACITRAC ZN/POLY 15 GM TUBE TP SCH (09:24)
[2016-08-10] MEDS: Z GUARD REMEDY 2 OZ OINT TP SCH ×2 (09:24→17:00)
[2016-08-10 12:00] VITALS: BP 92/45
[2016-08-10 16:00] VITALS: BP 102/50
[2016-08-10] MEDS: Z GUARD REMEDY 2 OZ OINT TP PRN (17:44)
[2016-08-10] MEDS: MICAFUNGIN SODIUM 100 MG in IV NS 0.9% 100 ML IV SCH (19:01)
--- NOTE | 2016-08-10 19:30 | NUR ---
SMALL ENGINE SPECIALIST INITIAL NOTE RECEIVED PATIENT IN BED, NO ACUTE DISTRESS NOTED AT THIS TIME. PT IS A/O X 2-3 AND ABLE TO MOUTH WORDS TO MAKE NEEDS KNOWN. TRACH MIDLINE AND INTACT, ON MECHANICAL VENTILATOR AT PRESCRIBED SETTINGS, TOLERATED WELL. PATIENT IS ON TELEMETRY MONITORING, REVEALING SINUS RHYTHM. PATIENT HAS GTUBE THAT IS CLEAN DRY INTACT AND PATENT WITH NOVASOURCE @ 50ML/HR AND TOLERATING WELL WITH NO GASTRIC RESIDUALS AT THIS TIME. PT HAS OBDULIA PICC LINE THAT IS CLEAN DRY INTACT AND PATENT. BED IN LOW AND LOCKED POSITION WITH SIDE RAILS UP X 2. CALL LIGHT WITHIN REACH AND ALL SAFETY MEASURES ENSURED AND CARRIED OUT. WILL CONTINUE TO MONITOR PATIENT
[2016-08-10 20:00] VITALS: BP 102/52
[2016-08-11] VITALS: BP 106/48
[2016-08-11] MEDS: IPRATROPIUM NEB FS 0.5 MG/2.5 ML AMPUL.NEB NEB SCH ×4 (01:30→19:35)
[2016-08-11] MEDS: ALBUTEROL FS 2.5 MG/3 ML VIAL.NEB NEB SCH ×4 (01:30→19:35)
[2016-08-11] MEDS ORDERED: IV NS 0.9% 250 ML IV ONE (03:55)
[2016-08-11] MEDS ORDERED: IV SET PRIMARY PUMP SET 1 EA INFUS.SET MC ONE (03:55)
[2016-08-11 04:00] VITALS: BP 107/51
[2016-08-11] MEDS: RENAL NOVASOURCE 1,000 ML BOTTLE GT PRN (04:12)
[2016-08-11] MEDS: LACTULOSE 10 G/15 ML UDC (PYXIS) PO SCH ×3 (04:12→22:15)
[2016-08-11 06:48] LABS: HEMATOCRIT 25 % (39-51); HEMOGLOBIN 8.6 g/dL (13.5-17.5); LYMPHOCYTES # (AUTO) 0.8 /CMM (0.8-4.8); MEAN CORPUSCULAR HEMOGLOBIN 32 PG (26.0-33.0); MEAN CORPUSCULAR HGB CONC 34 g/dl (31.0-36.0); MEAN CORPUSCULAR VOLUME 94 fL (80-96); MONOCYTES % (AUTO) 6.8 % (2.0-12.0); NEUTROPHILS # (AUTO) 13.3 /CMM (1.8-8.9); NEUTROPHILS % (AUTO) 88.2 % (43.0-81.0); PLATELET COUNT (AUTO) 114 /CMM (150-450); RDW COEFFICIENT OF VARIATION 17.4 (11.5-15.0); RED BLOOD CELL COUNT(AUTO) 2.71 MIL/uL (4.5-6.0); WHITE BLOOD COUNT (AUTO) 15.1 K/uL (4.3-11.0)
--- NOTE | 2016-08-11 07:00 | NUR ---
RN CLOSING NOTES PATIENT ENDORSED TO THE AM SHIFT NURSE FOR MAREN.
--- NOTE | 2016-08-11 07:15 | NUR ---
EXTRUDER OPERATOR HORIZONTAL INITIAL NOTES RECEIVED REPORT AND PT FROM PM NURSE, A&O X2-3 NONVERBAL OBTUNDED, ON [facility] VENT SETTINGS ORDERED BY SAT ABOVE 97%, NO SOB, ON TELE MON SR 71, LT UPP PICC LINE TKO PATENT RT CHEST WALL HD CATH INTACT PATENT, ALL NEEDS MET, ALL SAFETY MEASURES INITIATED, SIDE RAILS X2, BED LOW AND LOCKED, CALL LIGHT WITHIN REACH, WILL CONTINUE TO MONITOR.
[2016-08-11 07:36] LABS: CALCIUM, SERUM 8.5 mg/dL (8.5-10.1); CREATININE 3.8 mg/dL (0.6-1.3); MAGNESIUM 2.2 mg/dL (1.8-2.4); PHOSPHORUS 3.4 mg/dL (2.5-4.9)
[2016-08-11 08:00] VITALS: BP 91/45
[2016-08-11] MEDS: AMIODARONE HCL 200 MG TABLET PO SCH ×2 (09:00→22:16)
[2016-08-11] MEDS: PANTOPRAZOLE 40 MG/PACK PACK GT SCH ×2 (09:08→22:15)
[2016-08-11] MEDS: LACTOBACILLUS RHAMNOSUS GG 1 EACH CAP.SPRINK PO SCH ×2 (09:08→17:05)
[2016-08-11] MEDS: MULTIVITAMIN LIQ 5 ML UDC GT SCH (09:08)
[2016-08-11] MEDS: CHOLECALCIFEROL 1,000 UNIT TABLET (VIT D3) GT SCH (09:08)
[2016-08-11] MEDS: LEVETIRACETAM SOL (5 ML) 100 MG/ML UDC GT SCH ×2 (09:08→17:05)
[2016-08-11] MEDS: ZINC SULFATE 220 MG CAPSULE GT SCH (09:08)
[2016-08-11] MEDS: Z GUARD REMEDY 2 OZ OINT TP SCH ×2 (09:09→17:06)
[2016-08-11] MEDS: NEOMY SULF/BACITRAC ZN/POLY 15 GM TUBE TP SCH (09:09)
[2016-08-11 12:00] VITALS: BP 99/49
--- NOTE | 2016-08-11 12:10 | NUR ---
BAIL ATTACHER NOTES FINISHED HD WITH NURSE AHMED 500 CC REMOVED, VS STABLE.
[2016-08-11 16:00] VITALS: BP 95/47
[2016-08-11] MEDS: EPOETIN ALFA (10,000 UNIT) 10,000 UNIT/ML VIAL SQ SCH (17:05)
[2016-08-11] MEDS: MICAFUNGIN SODIUM 100 MG in IV NS 0.9% 100 ML IV SCH (18:06)
--- NOTE | 2016-08-11 18:50 | NUR ---
RECRUITING TEAM LEAD ENDING NOTES PT STABLE WITH NO ACUTE CHANGES NOTED, ALL DUE MEDS GIVEN, ALL NEEDS MET, WOUND TX DONE, BED BATH PROVIDED, WILL ENDORSE TO PM NURSE.
--- NOTE | 2016-08-11 19:30 | NUR ---
AGRICULTURAL CHEMICALS INSPECTOR INITIAL NOTE RECEIVED PATIENT IN BED, NO ACUTE DISTRESS NOTED AT THIS TIME. PT IS A/O X 2-3 AND ABLE TO MOUTH WORDS TO MAKE NEEDS KNOWN. TRACH MIDLINE AND INTACT, ON MECHANICAL VENTILATOR AT PRESCRIBED SETTINGS, TOLERATED WELL, FREE FROM ANY S/S OF RESPIRATORY DISTRESS. PATIENT IS ON TELEMETRY MONITORING, REVEALING SINUS RHYTHM. GTUBE DECLOGGED, NOW INTACT AND PATENT WITH NOVASOURCE @ 50ML/HR AND TOLERATING WELL WITH NO GASTRIC RESIDUALS AT THIS TIME. PT HAS OBDULIA PICC LINE THAT IS CLEAN DRY INTACT AND PATENT. BED IN LOW AND LOCKED POSITION WITH SIDE RAILS UP X 2. CALL LIGHT WITHIN REACH AND ALL SAFETY MEASURES ENSURED AND CARRIED OUT. WILL CONTINUE TO MONITOR PATIENT
[2016-08-11 20:00] VITALS: BP_SYST 103; BP_SYST 139; BP_DIAS 54; BP_DIAS 57
--- NOTE | 2016-08-11 20:00 | NUR ---
RN NOTES PATIENT NOTED WITH TEMP OF 100.2, COOLING MEASURES INITIATED.
--- NOTE | 2016-08-11 21:29 | NUR ---
RN NOTES PATIENT ENDORSED TO SOO LUNA FOR CONTINUITY OF CARE
--- NOTE | 2016-08-11 21:30 | NUR ---
APPOINTMENT SPECIALIST NOTES RECEIVED PT FROM AYLEEN, PT IS AWAKE, NONVERBAL, FOLLOWS COMMAND. VENT DEPENDENT, NO RESPIRATORY DISTRESS NOTED. SINUS RHYTHM ON MONITOR, GT IS PATENT, INTACT AND IN PLACE. KEPT HEAD OF BED ELEVATED, SIDE RAILS UP AND LOCKED, BED KEPT AT THE LOWEST POSITION, CALL LIGHT WITHIN REACH, WILL CONTINUE TO MONITOR.
[2016-08-12] VITALS (7 sets, daily range): BP systolic 93–119; BP diastolic 41–52
[2016-08-12] MEDS: IPRATROPIUM NEB FS 0.5 MG/2.5 ML AMPUL.NEB NEB SCH ×4 (01:24→20:19)
[2016-08-12] MEDS: ALBUTEROL FS 2.5 MG/3 ML VIAL.NEB NEB SCH ×4 (01:24→20:19)
[2016-08-12] MEDS: LACTULOSE 10 G/15 ML UDC (PYXIS) PO SCH ×3 (05:50→20:39)
[2016-08-12] MEDS: RENAL NOVASOURCE 1,000 ML BOTTLE GT PRN ×2 (06:02→16:04)
--- NOTE | 2016-08-12 06:49 | NUR ---
TELE CLOSING RN NOTES NO SIGNIFICANT CHANGES, PTS WITH EPISODES FEBRILE TMAX 100.4, ORALLY. CURRENTLY 99.1. COOLING MEASURES RENDERED. TOLERATING VENT SETTINGS, NO RESPIRATORY DISTRESS NOTED. TOLERATING GTUBE FEEDING. WOUND TREATMENT PROVIDED ORDERED, KEPT CLEAN AND DRY. TURNED AND REPOSITIONED EVERY 2 HOURS, AND PRN. HOB KEPT ELEVATED, SIDERAILS UP, CALL LIGHTS WITHIN REACH. DVT PUMP IN PLACE. TRACH CARE DONE. WILL ENDORSE TO AM NURSE FOR CONTINUITY OF CARE.
--- NOTE | 2016-08-12 07:10 | NUR ---
RN INITAL NOTE RECEIVED PT FROM PM NURSE. PT A/O X 2 IRISH SPEAKING ABLE TO MOUTH WORDS. TELE SR 75. GT NOVASOURCE @ 50ML/HR INTACT PLACEMENT CK AND NO RESIDUAL, TOLERATING FEEDING. OBDULIA PICC NS @ TKO, R CW-HD INTACT, FLUSHED AND PATENT. PT WARM AND DRY RESTING COMFORTABLY. REPOSITIONED FOR SAFETY AND COMFORT. WILL CONTINUE TO MONITOR CLOSELY.
[2016-08-12] MEDS: ZINC SULFATE 220 MG CAPSULE GT SCH (08:38)
[2016-08-12] MEDS: PANTOPRAZOLE 40 MG/PACK PACK GT SCH ×2 (08:38→20:39)
[2016-08-12] MEDS: LEVETIRACETAM SOL (5 ML) 100 MG/ML UDC GT SCH ×2 (08:39→16:09)
[2016-08-12] MEDS: LACTOBACILLUS RHAMNOSUS GG 1 EACH CAP.SPRINK PO SCH ×2 (08:39→16:09)
[2016-08-12] MEDS: MULTIVITAMIN LIQ 5 ML UDC GT SCH (08:39)
[2016-08-12] MEDS: CHOLECALCIFEROL 1,000 UNIT TABLET (VIT D3) GT SCH (08:39)
[2016-08-12] MEDS: Z GUARD REMEDY 2 OZ OINT TP SCH ×2 (08:40→16:09)
[2016-08-12] MEDS: NEOMY SULF/BACITRAC ZN/POLY 15 GM TUBE TP SCH (08:40)
[2016-08-12] MEDS: AMIODARONE HCL 200 MG TABLET PO SCH ×2 (08:50→20:42)
--- NOTE | 2016-08-12 10:05 | NUR ---
RN NOTE SPOKE TO DR. SOLIS INFORMED PT ABOUT FEVER OF 101.5 ON PM SHIFT AWARE. SAID IF FEVER SPIKE AGAIN CALL ID OR MEDICAL STAFF SPECIALIST FOR REPEAT CX ON PT.
[2016-08-12 10:13] LABS: BASOPHILS % (AUTO) 0.1 % (0.0-2.0); EOSINOPHILS # (AUTO) 0.1 /CMM (0.0-0.7); EOSINOPHILS % (AUTO) 0.6 % (0.0-6.0); HEMATOCRIT 27 % (39-51); HEMOGLOBIN 9.2 g/dL (13.5-17.5); LYMPHOCYTES # (AUTO) 0.9 /CMM (0.8-4.8); LYMPHOCYTES % (AUTO) 5.5 % (20.0-44.0); MEAN CORPUSCULAR HEMOGLOBIN 31 PG (26.0-33.0); MEAN CORPUSCULAR HGB CONC 34 g/dl (31.0-36.0); MEAN CORPUSCULAR VOLUME 93 fL (80-96); MONOCYTES # (AUTO) 1.1 /CMM (0.1-1.30); MONOCYTES % (AUTO) 6.5 % (2.0-12.0); NEUTROPHILS # (AUTO) 14.6 /CMM (1.8-8.9); NEUTROPHILS % (AUTO) 87.3 % (43.0-81.0); PLATELET COUNT (AUTO) 120 /CMM (150-450); RDW COEFFICIENT OF VARIATION 16.6 (11.5-15.0); RED BLOOD CELL COUNT(AUTO) 2.93 MIL/uL (4.5-6.0); WHITE BLOOD COUNT (AUTO) 16.7 K/uL (4.3-11.0)
[2016-08-12 10:21] LABS: ALBUMIN 1.5 g/dL (3.4-5.0); BILIRUBIN,TOTAL 2.2 mg/dL (0.2-1.0); CALCIUM, SERUM 8.5 mg/dL (8.5-10.1); CREATININE 3.8 mg/dL (0.6-1.3); MAGNESIUM 2.3 mg/dL (1.8-2.4); PHOSPHORUS 3.5 mg/dL (2.5-4.9); POTASSIUM 3.9 mmol/L (3.5-5.1); TOTAL PROTEIN, SERUM 5.8 g/dL (6.4-8.2)
--- NOTE | 2016-08-12 17:15 | NUR ---
RN NOTE SPOKE WITH CASSY FROM ID FOR F/U EXPLAINED PT HAD 1X WATERY/DIARRHEA BM IN PM ALSO PER SET OFF PRESS OPERATOR PT HAD 101.5 TEMP LATE NIGHT COOLING MEASURES TAKE. NO FEVER DURING MY SHIFT
[2016-08-12] MEDS: IV NS 0.9% 250 ML IV PRN (17:17)
[2016-08-12] MEDS ORDERED: FEE PK DOSING 1 MIN EA MC ONE ×2 (18:00)
[2016-08-12] MEDS ORDERED: DOSING PER PHARMACY-AMIKACI IV XX PRN (18:00)
[2016-08-12] MEDS ORDERED: VANCOMYCIN 1 GM in IV D5W 250 ML IV ONE (18:00)
[2016-08-12] MEDS ORDERED: AMIKACIN 400 MG in IV D5W 100 ML IV ONE (18:30)
[2016-08-12] MEDS ORDERED: SECONDARY IV SET 1 EA INFUS.SET MC ONE ×2 (18:47→20:27)
--- NOTE | 2016-08-12 19:30 | NUR ---
TELE INITIAL RN NOTES PT IS IN BED, HOB ELEVATED AT 35 DEGREES ANGLE, PT IS A/O X2, MOUTH WORDS, BHUTANESE SPEAKING. ON MECHANICAL VENT SATURATING AT 100%. NO S/SX OF RESPIRATORY DISTRESS NOTED. ON CONTINOUS FEEDING, GT IS INTACT, O RESIDUAL NOTED. IV SITES ON THE OBDULIA NS TKO, FLUSHED AND PATENT, CDI. BED IN LOWEST POSITION, SIDERAILS UP, SAFETY MEASURES MAINTAINED, CALL LIGHTS WITHIN REACHED
--- NOTE | 2016-08-12 19:35 | NUR ---
SCRAP METAL BURNER NOTES RECEIVED TELEPHONE INFORMED CONSENT FROM PT'S DAUGHTER, TI NEVAREZ TO HAVE US GUIDED THORACENTESIS, WITNESSED WITH ANOTHER RN, LEENA.
--- NOTE | 2016-08-12 19:38 | NUR ---
RN CLOSING NOTE RECEIVED PT FROM PM NURSE. PT A/O X 2 FINNISH SPEAKING ABLE TO MOUTH WORDS. GT NOVASOURCE @ 50ML/HR INTACT PLACEMENT CK AND NO RESIDUAL, TOLERATING FEEDING. OBDULIA PICC NS @ TKO, R CW-HD INTACT, FLUSHED AND PATENT. PT WARM AND DRY RESTING COMFORTABLY. REPOSITIONED FOR SAFETY AND COMFORT. ALL MEDICATIONS GIVEN AND ALL ORDERS CARRIED OUT. REPORT GIVEN TO PM SHIFT FOR MAREN.
--- NOTE | 2016-08-12 20:02 | NUR ---
ENDOSCOPY TECHNICIAN NOTES SPOKE WITH PHARMACY MORIS TO CLARIFY ANTIBIOTIC ORDER OF AMIKACIN AND VANCO SINCE PATIENT WITH NO HD TODAY. OK TO GIVE VANCO AND AMIKACIN TODAY LOADING DOSE.
[2016-08-12] MEDS: METRONIDAZOLE 500 MG TABLET PO SCH (20:39)
[2016-08-13] VITALS (9 sets, daily range): BP systolic 85–130; BP diastolic 35–55
[2016-08-13] MEDS: IPRATROPIUM NEB FS 0.5 MG/2.5 ML AMPUL.NEB NEB SCH ×4 (02:06→19:59)
[2016-08-13] MEDS: ALBUTEROL FS 2.5 MG/3 ML VIAL.NEB NEB SCH ×4 (02:06→19:59)
[2016-08-13] MEDS: METRONIDAZOLE 500 MG TABLET PO SCH (05:40)
[2016-08-13] MEDS: LACTULOSE 10 G/15 ML UDC (PYXIS) PO SCH ×3 (05:41→20:21)
[2016-08-13 06:56] LABS: EOSINOPHILS # (AUTO) 0.1 /CMM (0.0-0.7); EOSINOPHILS % (AUTO) 0.8 % (0.0-6.0); HEMATOCRIT 27 % (39-51); LYMPHOCYTES # (AUTO) 0.8 /CMM (0.8-4.8); LYMPHOCYTES % (AUTO) 5.3 % (20.0-44.0); MEAN CORPUSCULAR HEMOGLOBIN 32 PG (26.0-33.0); MEAN CORPUSCULAR HGB CONC 34 g/dl (31.0-36.0); MEAN CORPUSCULAR VOLUME 93 fL (80-96); MONOCYTES # (AUTO) 1.3 /CMM (0.1-1.30); MONOCYTES % (AUTO) 8.2 % (2.0-12.0); NEUTROPHILS # (AUTO) 13.6 /CMM (1.8-8.9); NEUTROPHILS % (AUTO) 85.7 % (43.0-81.0); PLATELET COUNT (AUTO) 125 /CMM (150-450); RDW COEFFICIENT OF VARIATION 16.4 (11.5-15.0); RED BLOOD CELL COUNT(AUTO) 2.87 MIL/uL (4.5-6.0); WHITE BLOOD COUNT (AUTO) 15.9 K/uL (4.3-11.0)
[2016-08-13 07:05] LABS: BILIRUBIN,TOTAL 1.7 mg/dL (0.2-1.0); CALCIUM, SERUM 8.5 mg/dL (8.5-10.1); CREATININE 4.3 mg/dL (0.6-1.3); MAGNESIUM 2.4 mg/dL (1.8-2.4); PHOSPHORUS 3.7 mg/dL (2.5-4.9); POTASSIUM 3.6 mmol/L (3.5-5.1); TOTAL PROTEIN, SERUM 5.7 g/dL (6.4-8.2)
--- NOTE | 2016-08-13 07:20 | NUR ---
TELE CLOSING RN NOTES NO SIGNIFICANT CHANGES, PTS TEMP CURRENTLY 99.1. COOLING MEASURES RENDERED. TOLERATING VENT SETTINGS, NO RESPIRATORY DISTRESS NOTED, TRACH CARE DONE. IV SITES PATENT, NO SIGNS AND SYMPTOMS OF INFECTION OR INFILTRATION. CONTINOUS GTUBE FEEDING, PT TOLERATING IT WELL. WOUND TREATMENT PROVIDED ORDERED, KEPT CLEAN AND DRY. TURNED AND REPOSITIONED EVERY 2 HOURS, AND PRN. HOB KEPT ELEVATED, SIDERAILS UP AND LOCKED, . DVT PUMP IN PLACE. . WILL ENDORSE TO AM NURSE FOR CONTINUITY OF CARE.
[2016-08-13 07:30] LABS: ALBUMIN 1.4 g/dL (3.4-5.0)
--- NOTE | 2016-08-13 07:30 | NUR ---
RN INITIAL NOTE RECEIVED PT FROM PM SHIFT PT MOUTHS WORDS MARSHALLESE SPEAKING. CORNELIO # 8 AC 16 TV600 FIO2 35% PEEP 0 N/O S/S OF ACUTE SOB .TELE PT SR. IV OBDULIA PICC N/S @TKO FLUSHED PATENT AND INTACT. RCW HD HAND. AWAITING KUB FOR GT PLACEMENT CK, SEE PREVIOUS PM NURSING NOTE. HELD FIBERSOURCE @ 60ML/ HR . ALL SAFETY MEASURES IN PLACE. WILL CONTINUE TO MONITOR CLOSELY.
--- NOTE | 2016-08-13 07:37 | NUR ---
NOTE GT OUT WITH GT BALLOON INTACT. PLACE GT IN PLACE, BALLOON INFLATED. PATIENT TOLERATED PROCEDURE WELL. PLACEMENT CHECKED BY AUSCULTATION. STAT KUB ORDERED. CHARGE NURSE AND AM NURSE AWARE.
[2016-08-13] MEDS ORDERED: DIATR MEGLU/DIATRIZOATE SODIUM 30 ML BOTTLE (GASTROGRAPHIN) ONE ×2 (08:04→14:21)
[2016-08-13] MEDS: MULTIVITAMIN LIQ 5 ML UDC GT SCH (09:00)
[2016-08-13] MEDS: CHOLECALCIFEROL 1,000 UNIT TABLET (VIT D3) GT SCH (09:00)
[2016-08-13] MEDS: ZINC SULFATE 220 MG CAPSULE GT SCH (09:00)
[2016-08-13] MEDS: LACTOBACILLUS RHAMNOSUS GG 1 EACH CAP.SPRINK PO SCH ×2 (09:00→16:38)
[2016-08-13] MEDS: LEVETIRACETAM SOL (5 ML) 100 MG/ML UDC GT SCH (09:00)
[2016-08-13] MEDS: PANTOPRAZOLE 40 MG/PACK PACK GT SCH (09:00)
--- NOTE | 2016-08-13 09:25 | NUR ---
RN NOTE HELD ALL PO/GT MEDICATIONS, PLACEMENT NEED TO BE CHECKED BY KUB.
[2016-08-13] MEDS: Z GUARD REMEDY 2 OZ OINT TP SCH ×2 (09:30→16:37)
[2016-08-13] MEDS: NEOMY SULF/BACITRAC ZN/POLY 15 GM TUBE TP SCH (09:30)
[2016-08-13 09:38] LABS: INR 1.27 (0.87-1.13); PROTHROMBIN TIME 13.8 SECS (9.5-12.7)
--- NOTE | 2016-08-13 10:30 | NUR ---
RN NOTE REPORT GIVEN TO ZURDO PT CHANGED TO PERRY.
--- NOTE | 2016-08-13 10:32 | NUR ---
RN NOTES PT RECEIVED ON BED, A/Ox2, MOUTH WORDS , TRACH CARE DONE, ON TELE AFIB HR IN 120'S, GT ON HOLD DUE TO LEAKAGE FORM THE SITE. DR CHRISTENSEN NOTIFIED, NEW ORDER GIVEN , CONTINUE TO MONITOR PT CLOSELY .
[2016-08-13] MEDS ORDERED: IV SET PRIMARY PUMP SET 1 EA INFUS.SET MC ONE (10:52)
--- NOTE | 2016-08-13 10:59 | NUR ---
RN NOTES KEENA IN DR. EDWARD'S OFFICE NOTIFIED REGARDING GI CONSULT .
[2016-08-13] MEDS ORDERED: AMIODARONE 150 MG in IV D5W 100 ML IV ONE (11:00)
[2016-08-13] MEDS ORDERED: AMIODARONE 900 MG in IV D5W 482 ML IV PRN (11:00)
[2016-08-13] MEDS: AMIODARONE 900 MG in IV D5W 482 ML IV PRN (11:31)
[2016-08-13] MEDS ORDERED: SECONDARY IV SET 1 EA INFUS.SET MC ONE ×2 (11:32→14:08)
--- NOTE | 2016-08-13 11:40 | NUR ---
RN NOTES BP =88/38/ HR =128, DR GREENWOOD NOTIFIED , LOADING DOSE NOT GIVEN PER MD ORDER, AMIO GTT STARTED AT 33.[address] GREENWOOD ORDER , PT RECEIVING HD AT THIS TIME , CONTINUE TO MONITOR PT CLOSELY.
[2016-08-13] MEDS ORDERED: ALBUMIN 25% 25 GM in PREMIX 1 EA IV ONE (12:00)
--- NOTE | 2016-08-13 12:45 | NUR ---
RN NOTES DR SOTO NOTFIED REGARDING ALBUMIN 1.4 , NO NEW ORDER GIVEN .
[2016-08-13] MEDS: LEVETIRACETAM (500MG) 500 MG in IV NS 0.9% 100 ML IV SCH (13:11)
--- NOTE | 2016-08-13 13:30 | NUR ---
RN NOTES PT CONVERTED TO SR ON MONITOR IN 70'S . CONTINUE TO MONITOR .
[2016-08-13] MEDS: METRONIDAZOLE 500MG/ NS 100ML 500 MG in PREMIX 1 EA IV SCH ×2 (14:10→20:22)
[2016-08-13] MEDS: EPOETIN ALFA (10,000 UNIT) 10,000 UNIT/ML VIAL SQ SCH (15:14)
--- NOTE | 2016-08-13 16:27 | NUR ---
RN NOTE DR GREENWOOD NOTIFIED REGARDING HR 60'S , BP= 130/35, WILL CONTINUE AMIO GTT PER DR GREENWOOD ORDER .
[2016-08-13 16:31] LABS: TOTAL VOLUME,BODY FLUID 1000 mL; WBC, BODY FLUID 330 /cu. mm. (0-200)
[2016-08-13 16:32] LABS: MONOCYTES,BODY FLUID 2 %; POLYNUCLEAR, BODY FLUID 80 % (0-25)
--- NOTE | 2016-08-13 17:30 | NUR ---
RN NOTES AMIODARONE GTT DECREASED TO 16.6CC/ HR PER PROTOCOL , VSS STABLE .
--- NOTE | 2016-08-13 17:57 | NUR ---
RN NOTES PHARMACY NOTIFIED REGARDING VANCO AND AMIKACIN TROUGH , VANCO AND AMIKACIN ON HOLD AT THIS TIME PER PHARMACY .
[2016-08-13 18:18] LABS: GLUCOSE,BODY FLUID 112 mg/dL; PROTEIN, BODY FLUID 2.2 G/DL
--- NOTE | 2016-08-13 18:50 | NUR ---
RN NOTES PT STABLE , TF STILL ON HOLD , VSS STABLE , CONTINUE TO MONITOR .
[2016-08-13] MEDS: PANTOPRAZOLE 40 MG VIAL IV SCH (20:22)
--- NOTE | 2016-08-13 22:08 | NUR ---
RN NOTES TRACH CARE DONE, HR IS IN 60'S SR WITH BBB, TF STILL ON HOLD, MODERATE AMOUNT OF DRAINAGE NOTED AT GT SITE , AMIODARONE GTT T 16.6CCHR RUNNING VIA L UPPER ARM PICC LINE, SR UP x3, CALL LIGHT WITHIN EASY REACH , MEDICATED PER MD ORDER ,
--- NOTE | 2016-08-13 23:10 | NUR ---
RN NOTES ZURDO RN ENDORSED CONTINUITY OF CARE. PT ASLEEP WELL ON BED TRACH AND VENT SETTING TOLERATED WELL SATING 97% NO ACUTE RESP DISTRESS. AFEBRILE. TEMP 97.7. GTF HELD DUE TO LEAKING MD IS AWARE. IS SITE ON OBDULIA RUNNING WITH AMIODARONE DRIP AT 0.498 MG/MIN TELE MONITOR READS SR HR 64. PT IS RESPONSIVE TO TACTILE STIMULI COMMUNICATES BY MOUTHING WORDS. WILL CONTINUE TO MONITOR.
[2016-08-14] VITALS: BP 86/44
--- NOTE | 2016-08-14 00:45 | NUR ---
RN NOTES INFORMED DR. ALDRICH ABOUT BP OF 88/44 AT THIS TIME HR 64 TRIED 4X SEMI TRENDELENBURG POSITIONING RENDERED BUT BP STILL LOW AMIODARONE DRIP ONGOING @ 0.5 MG/MIN. PER MD TO CONTINUE AMIODARONE DRIP UNTIL HIS HR DROPS BELOW 60 AND GIVE 250 BOLUS OF NS Q 30 MINS. UP TO 1 LITER PRN FOR SBP <90MMHG. NOTED AND CARRIED OUT ORDERS.
[2016-08-14] MEDS: LEVETIRACETAM (500MG) 500 MG in IV NS 0.9% 100 ML IV SCH ×2 (00:51→13:22)
[2016-08-14] MEDS ORDERED: IV NS 0.9% 250 ML IV PRN ×2 (01:00→01:30)
[2016-08-14] MEDS ORDERED: IV SET PRIMARY 1 EA INFUS.SET MC ONE (01:12)
[2016-08-14] MEDS: IV NS 0.9% 250 ML IV PRN ×4 (01:13→03:50)
--- NOTE | 2016-08-14 01:38 | NUR ---
RN NOTES STARTED NS BOLUS OF 250 ML DUE TO BP 86/44MMHG.
[2016-08-14] MEDS: IPRATROPIUM NEB FS 0.5 MG/2.5 ML AMPUL.NEB NEB SCH ×4 (01:43→19:11)
[2016-08-14] MEDS: ALBUTEROL FS 2.5 MG/3 ML VIAL.NEB NEB SCH ×4 (01:43→19:11)
[2016-08-14] MEDS ORDERED: IV NS 0.9% 250 ML IV ONE ×2 (02:29→03:38)
--- NOTE | 2016-08-14 02:38 | NUR ---
RN NOTES 2ND BAD OF NS 250 ADMINISTERED BP 88/42 MMHG. PT IS AWAKE AT THIS TIME RESPONSIVE TO TACTILE STIMULI.
--- NOTE | 2016-08-14 03:52 | NUR ---
RN NOTES 3RD BAG OF NS 250 ML STARTED BP STILL 88/44 HR 67 NO SOB NOTED. WILL CONTINUE TO MONITOR.
[2016-08-14 04:00] VITALS: BP_SYST 88; BP_DIAS 39; BP_DIAS 41
--- NOTE | 2016-08-14 04:20 | NUR ---
RN NOTES RECHECKED BLOOD PRESSURE AFTER 3RD BAG OF NS 250 ML BP = 110/53 MMHG. HR 66. MEDS EFFECTIVE.WILL CONTINUE TO MONITOR.
[2016-08-14] MEDS: LACTULOSE 10 G/15 ML UDC (PYXIS) PO SCH ×3 (05:00→21:00)
[2016-08-14] MEDS: METRONIDAZOLE 500MG/ NS 100ML 500 MG in PREMIX 1 EA IV SCH ×3 (05:28→20:33)
--- NOTE | 2016-08-14 07:00 | NUR ---
RN INITIAL NOTES RECEIVED PT IN BED, ABLE TO MAKE NEEDS KNOWN, PT MOUTHS WORDS, [facility] [place] # 8 AC 16 TV 600 FIO2 35% PEEP 5, NO S/S OF RESP. DISTRESS OR SOB NOTED AT THIS TIME, PT IS ON TELE MONITOR SHOWING SR 65, NO C/O DISCOMFORT OR PAIN AT THIS TIME, PT IS ANURIC, PT HAS GTUBE, CLAMPED AT THIS TIME, LEAKING FOUL GREEN FLUID, PT IS NOTED WITH MULTIPLE SKIN ISSUES, PT HAS OBDULIA PICC, RUNNING AMIO @ 0.5MG/MIN, C/D/I/PATENT, FLUSHING WELL, NO S/S OF INFECTION/ INFILTRATION NOTED AT THIS TIME, RCW, DRESSING INTACT, CLEAN AND DRY, ALL SAFETY MEASURES IN PLACE AT ALL TIMES, CALL LIGHT WITHIN EASY REACH, WILL MONITOR PT CLOSELY FOR CHANGES
--- NOTE | 2016-08-14 07:24 | NUR ---
RN NOTES PT BP WNL AT THIS TIME. ALL DUE MEDICINE REMAINED EFFECTIVE. AIRWAY PATENT NO ACUTE RESP DISTRESS. GTF STILL HELD WITH FOUL SMELL LEAKAGE. MD AWARE. NO ACTIVE BLEEDING AT THIS TIME. AFEBRILE. KEPT PT CLEAN AND COMFORTABLE IN BED.
[2016-08-14 08:00] VITALS: BP 99/43
[2016-08-14] MEDS: MULTIVITAMIN LIQ 5 ML UDC GT SCH (09:00)
[2016-08-14] MEDS: LACTOBACILLUS RHAMNOSUS GG 1 EACH CAP.SPRINK PO SCH ×2 (09:00→16:02)
[2016-08-14] MEDS: ZINC SULFATE 220 MG CAPSULE GT SCH (09:00)
[2016-08-14] MEDS: CHOLECALCIFEROL 1,000 UNIT TABLET (VIT D3) GT SCH (09:00)
[2016-08-14] MEDS: Z GUARD REMEDY 2 OZ OINT TP SCH ×2 (09:13→16:23)
[2016-08-14] MEDS: NEOMY SULF/BACITRAC ZN/POLY 15 GM TUBE TP SCH (09:13)
[2016-08-14] MEDS: PANTOPRAZOLE 40 MG VIAL IV SCH ×2 (09:13→21:54)
--- NOTE | 2016-08-14 09:25 | NUR ---
RN NOTES AM MEDICATIONS WERE NOT GIVEN D/T G TUBE NOT WORKING.
--- NOTE | 2016-08-14 09:52 | NUR ---
RN NOTES CALLED DR. ESTRADA FOR CONT AMIO DRIP ORDERS, LEFT MESSAGE WITH ANSWERING SERVICE, AWAITING CALL BACK
--- NOTE | 2016-08-14 10:15 | NUR ---
RN NOTES RECEIVED ORDERS TO CONT. AMIO DRIP @ 0.5MG/MIN PER DR. ESTRADA
[2016-08-14 12:00] VITALS: BP 104/43
[2016-08-14] MEDS: AMIODARONE 900 MG in IV D5W 482 ML IV PRN (12:55)
--- NOTE | 2016-08-14 15:00 | NUR ---
RN NOTES CALLED LOPEZ (DAUGHTER) [phone], TO OBTAIN CONSENT FOR EGD, PEG PLACEMENT, LEFT A MESSAGE, AWAITING FOR RETURN CALL
[2016-08-14] MEDS: MORPHINE SULFATE INJ 2 MG/ML DISP.SYRIN IV PRN (15:18)
[2016-08-14 16:00] VITALS: BP 97/49
--- NOTE | 2016-08-14 16:40 | NUR ---
RN NOTES RECEIVED CALL FROM LOPEZ( DAUGHTER), SPOKE WITH HER OVER THE PHONE, SHE GAVE CONSENT FOR EGD, ANESTHESIA, PEG PLACEMENT, JUAN RN, CONFIRMED CONSENT WELL.
--- NOTE | 2016-08-14 18:23 | NUR ---
RN CLOSING NOTES PT REMAINED STABLE DURING SHIFT, ALL MD ORDERS CARRIED OUT, ALL MEDICATIONS GIVEN, GTUBE, CLAMPED AND LEAKING GREEN FLUID, IV REMAINED C/D/I/PATENT, RUNNING AMIO @ 0.5MG/MIN, ALL TREATMENTS CARRIED OUT, PT KEPT CLEAN AND DRY, ALL SAFETY MEASURES IN PLACE AT ALL TIMES, REPORT WILL BE GIVEN TO PM RN FOR MAREN
[2016-08-14 20:00] VITALS: BP 101/47
--- NOTE | 2016-08-14 20:05 | NUR ---
TD RN: CALLED AND NOTIFIED DR. ESTRADA THAT PT. IS NSR ON TELE MONITOR AT THIS TIME. HR IS IN THE LOW 60s BUT WT EPISODE OF SB IN HIGH 50s, UNSUSTAINED. WT ORDER TO HOLD AMIO DRIP IF SUSTAINED HR IS LESS THAN 50. NOTED AND CARRIED OUT.
[2016-08-15] VITALS: BP 101/54
[2016-08-15] MEDS: LEVETIRACETAM (500MG) 500 MG in IV NS 0.9% 100 ML IV SCH ×2 (01:01→13:07)
[2016-08-15] MEDS: IPRATROPIUM NEB FS 0.5 MG/2.5 ML AMPUL.NEB NEB SCH ×4 (01:06→19:31)
[2016-08-15] MEDS: ALBUTEROL FS 2.5 MG/3 ML VIAL.NEB NEB SCH ×4 (01:06→19:31)
[2016-08-15 04:00] VITALS: BP 109/51
[2016-08-15] MEDS: IV NS 0.9% 250 ML IV PRN (04:35)
[2016-08-15] MEDS: AMIODARONE 900 MG in IV D5W 482 ML IV PRN (04:42)
[2016-08-15] MEDS: METRONIDAZOLE 500MG/ NS 100ML 500 MG in PREMIX 1 EA IV SCH ×3 (04:44→21:00)
[2016-08-15] MEDS: LACTULOSE 10 G/15 ML UDC (PYXIS) PO SCH ×3 (04:50→20:22)
--- NOTE | 2016-08-15 06:25 | NUR ---
TD RN: NO SIGNIFICANT MAREN DURING THE SHIFT. PT REMAINED ABLE TO MAKE NEEDS KNOWN VIA MOUTHING OF WORDS AND GESTURES. TOLERATING VENT SETTINGS ORDERED WT NO ACUTE DISTRESS, NO C/O PAIN OR EVIDENCE OF DISCOMFORT. VS WITHIN HIS BASELINE. CONTINUE ON AMIO. DRIP AT 0.5MG/MIN WT HR IN THE HIGH 50s TO LOW 60s (NSR/SB WT 1ST DEGREE HEART BLOCK). UNABLE TO COLLECT STOOL SPECIMEN FOR OCCULT BLOOD DUE TO NO BM DURING THE SHIFT. REMAINED NPO FOR PEG REPLACEMENT TODAY WT SCANT DOWNEY DRAINAGE NOTED ON GT SITE. WILL ENDORSE TO DAY SHIFT FOR CONTINUITY OF CARE. SAFETY PRECAUTION NOTED.
[2016-08-15 07:06] LABS: BASOPHILS % (AUTO) 0.2 % (0.0-2.0); EOSINOPHILS # (AUTO) 0.3 /CMM (0.0-0.7); EOSINOPHILS % (AUTO) 3.4 % (0.0-6.0); HEMATOCRIT 27 % (39-51); LYMPHOCYTES # (AUTO) 1.1 /CMM (0.8-4.8); LYMPHOCYTES % (AUTO) 11.5 % (20.0-44.0); MEAN CORPUSCULAR HEMOGLOBIN 32 PG (26.0-33.0); MEAN CORPUSCULAR HGB CONC 34 g/dl (31.0-36.0); MEAN CORPUSCULAR VOLUME 93 fL (80-96); MONOCYTES # (AUTO) 1.2 /CMM (0.1-1.30); MONOCYTES % (AUTO) 12.7 % (2.0-12.0); NEUTROPHILS % (AUTO) 72.2 % (43.0-81.0); PLATELET COUNT (AUTO) 150 /CMM (150-450); RDW COEFFICIENT OF VARIATION 16.6 (11.5-15.0); RED BLOOD CELL COUNT(AUTO) 2.85 MIL/uL (4.5-6.0); WHITE BLOOD COUNT (AUTO) 9.7 K/uL (4.3-11.0)
[2016-08-15 07:13] LABS: CALCIUM, SERUM 8.2 mg/dL (8.5-10.1); CREATININE 4.2 mg/dL (0.6-1.3); POTASSIUM 3.9 mmol/L (3.5-5.1)
[2016-08-15 07:17] LABS: INR 1.48 (0.87-1.13); PROTHROMBIN TIME 16.2 SECS (9.5-12.7)
--- NOTE | 2016-08-15 07:33 | NUR ---
Received pt on mechanical vent. Pt trach is secure. Vent is plugged into a red outlet, alarms are set and audible. BVM is at bedside. Addendum: 08/15/16 at 0734 by SARKIS HESS RT Amended: Links added.
[2016-08-15 08:00] VITALS: BP_SYST 105; BP_SYST 99; BP_DIAS 49; BP_DIAS 70
--- NOTE | 2016-08-15 08:00 | NUR ---
TD/RN AM SHIFT INITIAL NOTES RECEIVED PT ASLEEP IN BED. NO ACUTE RESPIRATORY DISTRESS NOTED. PT ALERT ABLE TO MOUTH WORDS IN [place], NO GRIMACE NOTED. ON VENTILATOR SET @ PRESCRIBED RATES, SATURATING @98%, LUNG SOUNDS DIMINISHED, SUCTIONED FOR AIRWAY CLEARANCE. ON TELE WITH SINUS RHYTHM WITH BBB, HR 68. PT WITH ON GOING AMIODARONE DRIP @ 0.461MG/MIN @ 16.59 ML/HR, PICC LINE PATENT WITH NO S/S OF INFECTION. NPO STATUS FOR SCHEDULED EGD AND PEG @ 14OO TO BE PERFORMED BY DR. EDWARD. OTHER MEDICATIONS TO BE GIVEN. PT IS COMFORTABLE AT THIS TIME. CL WITHIN REACHED AND SAFETY MAINTAINED.
--- NOTE | 2016-08-15 08:00 | NUR ---
TD/RN AM SIFT Addendum: 08/15/16 at 1234 by TATIANA RAM RN ERROR:
[2016-08-15] MEDS: MULTIVITAMIN LIQ 5 ML UDC GT SCH (09:00)
[2016-08-15] MEDS: LACTOBACILLUS RHAMNOSUS GG 1 EACH CAP.SPRINK PO SCH ×2 (09:00→17:13)
[2016-08-15] MEDS: CHOLECALCIFEROL 1,000 UNIT TABLET (VIT D3) GT SCH (09:00)
[2016-08-15] MEDS: ZINC SULFATE 220 MG CAPSULE GT SCH (09:00)
[2016-08-15] MEDS: PANTOPRAZOLE 40 MG VIAL IV SCH ×2 (09:18→21:00)
[2016-08-15] MEDS: Z GUARD REMEDY 2 OZ OINT TP SCH ×2 (09:19→17:14)
[2016-08-15] MEDS: NEOMY SULF/BACITRAC ZN/POLY 15 GM TUBE TP SCH ×2 (09:20→15:00)
--- NOTE | 2016-08-15 10:30 | NUR ---
TD/HUMAN RESOURCES MANAGER MANUFACTURING TX PT RECEIVED DIALYSIS TREATMENT, REMOVED 1L OF FLUID. PT TOLERATED PROCEDURE. MONITORING CONTINUED.
[2016-08-15 12:00] VITALS: BP 118/60
[2016-08-15] MEDS ORDERED: NEOMY SULF/BACITRAC ZN/POLY 15 GM TUBE TP SCH (15:00)
--- NOTE | 2016-08-15 15:00 | NUR ---
TD/RN GT PLACEMENT GT PLACEMENT PERFORMED AT BEDSIDE BY DR. EDWARD. PT TOLERATED PROCEDURE. PER DR. EDWARD, MAY USE GT FOR MEDICATION HOLD FEEDING UNTIL TOMORROW. ORDER NOTED AND CARRIED.
[2016-08-15 16:00] VITALS: BP 98/45
[2016-08-15] MEDS: EPOETIN ALFA (10,000 UNIT) 10,000 UNIT/ML VIAL SQ SCH (17:13)
[2016-08-15] MEDS: VANCOMYCIN 500 MG in IV D5W 100 ML IV PRN (18:43)
--- NOTE | 2016-08-15 19:14 | NUR ---
TD/RN AM SHIFT END NOTES NO ACUTE CHANGE OF CONDITION NOTED DURING THIS TIME. NEEDS MET. ON GOING AMIODARONE DRIP @ 0.5MG/MIN. PT ENDORSED TO PM NURSE TO CONTINUE CARE. CL WITHIN REACHED AND SAFETY MAINTAINED.
[2016-08-15 20:00] VITALS: BP 95/47
--- NOTE | 2016-08-15 20:00 | NUR ---
TRANSMISSION ASSEMBLER: RECEIVED PT ASLEEP IN BED. NO ACUTE RESPIRATORY DISTRESS NOTED. PT ALERT ABLE TO MOUTH WORDS IN FAROESE, NO GRIMACE NOTED. ON VENTILATOR SET @ PRESCRIBED RATES, SATURATING @98%, LUNG SOUNDS DIMINISHED, SUCTIONED FOR AIRWAY CLEARANCE. ON TELE WITH SINUS RHYTHM WITH BBB, HR 68. PT WITH ON GOING AMIODARONE DRIP @ 0.5 MG/MIN, PICC LINE PATENT WITH NO S/S OF INFECTION. NPO STATUS FOR NOW, RESTART FEEDING IN MORNING. PT IS COMFORTABLE AT THIS TIME. CL WITHIN REACHED AND SAFETY MAINTAINED.
[2016-08-16] VITALS: BP 97/46
[2016-08-16] MEDS: AMIKACIN 400 MG in IV D5W 100 ML IV PRN (00:33)
[2016-08-16] MEDS: LEVETIRACETAM (500MG) 500 MG in IV NS 0.9% 100 ML IV SCH (00:34)
[2016-08-16] MEDS ORDERED: SECONDARY IV SET 1 EA INFUS.SET MC ONE ×2 (00:35→13:14)
[2016-08-16] MEDS: IPRATROPIUM NEB FS 0.5 MG/2.5 ML AMPUL.NEB NEB SCH ×4 (01:51→20:54)
[2016-08-16] MEDS: ALBUTEROL FS 2.5 MG/3 ML VIAL.NEB NEB SCH ×4 (01:51→20:54)
[2016-08-16 04:00] VITALS: BP 90/38
[2016-08-16] MEDS: METRONIDAZOLE 500MG/ NS 100ML 500 MG in PREMIX 1 EA IV SCH ×3 (04:25→21:33)
[2016-08-16] MEDS: LACTULOSE 10 G/15 ML UDC (PYXIS) PO SCH ×3 (04:25→21:33)
[2016-08-16] MEDS: NEOMY SULF/BACITRAC ZN/POLY 15 GM TUBE TP SCH ×3 (04:26→15:00)
[2016-08-16] MEDS: IV NS 0.9% 250 ML IV PRN (06:57)
[2016-08-16 08:00] VITALS: BP 113/49
--- NOTE | 2016-08-16 08:00 | NUR ---
TD/RN AM SHIFT INITIAL NOTES RECEIVED PT ASLEEP IN BED. AROUSEABLE. NO ACUTE RESPIRATORY DISTRESS OR CHANGE OF CONDITION NOTED. PT ALERT ABLE TO MOUTH WORDS IN KHMER, NO GRIMACE NOTED. ON VENTILATOR SET @ PRESCRIBED RATES, SATURATING @98%, LUNG SOUNDS DIMINISHED, SUCTIONED FOR AIRWAY CLEARANCE. ON TELE WITH SINUS RHYTHM WITH BBB, HR 70. PT WITH ON GOING AMIODARONE DRIP @ 0.5MG/MIN, PICC LINE PATENT WITH NO S/S OF INFECTION. PT TO START WITH GT FEEDING THIS MORNING. NOTED WITH DISTENDED ABDOMEN. SCHEDULED AM MEDS TO BE GIVEN. PT IS COMFORTABLE AT THIS TIME. CL WITHIN REACHED AND SAFETY MAINTAINED.
[2016-08-16] MEDS: MULTIVITAMIN LIQ 5 ML UDC GT SCH (08:38)
[2016-08-16] MEDS: LACTOBACILLUS RHAMNOSUS GG 1 EACH CAP.SPRINK PO SCH ×2 (08:38→17:16)
[2016-08-16] MEDS: ZINC SULFATE 220 MG CAPSULE GT SCH (08:39)
[2016-08-16] MEDS: PANTOPRAZOLE 40 MG VIAL IV SCH ×2 (08:39→21:33)
[2016-08-16] MEDS: CHOLECALCIFEROL 1,000 UNIT TABLET (VIT D3) GT SCH (08:42)
[2016-08-16] MEDS: Z GUARD REMEDY 2 OZ OINT TP SCH ×2 (08:42→17:16)
[2016-08-16] MEDS: RENAL NOVASOURCE 1,000 ML BOTTLE GT PRN (08:43)
--- NOTE | 2016-08-16 09:45 | NUR ---
TD/RN AMIODARONE DRIP SPOKE TO DR. CROW, UPDATED PT'S CONDITION. NOTIFIED MD THAT PT ALREADY HAS GT ACCESS AND SHOULD BE OFF AMIODARONE DRIP AND START RECEIVED MEDICATION THROUGH THE G-TUBE. PER DR. CROW WILL D/C'D THE DRIP AND RESTART P.O. FORM. MONITORING CONTINUED.
[2016-08-16] MEDS: AMIODARONE HCL 200 MG TABLET GT SCH ×2 (10:00→17:15)
[2016-08-16 12:00] VITALS: BP 99/40
--- NOTE | 2016-08-16 12:00 | NUR ---
TD/RN NOON ROUNDS NO ACUTE CHANGE OF CONDITION. MONITORING CONTINUED.
[2016-08-16] MEDS: LEVETIRACETAM SOL (5 ML) 100 MG/ML UDC GT SCH (13:11)
[2016-08-16 16:00] VITALS: BP_SYST 102; BP_SYST 113; BP_DIAS 40; BP_DIAS 49
--- NOTE | 2016-08-16 16:00 | NUR ---
TD/RN AFTERNOON ROUNDS PM CARE PROVIDED. NO CHANGE OF CONDITION. ON GOING MONITORING.
--- NOTE | 2016-08-16 19:49 | NUR ---
TD/RN AM SHIFT END NOTES ALL NEEDS PROVIDED. NO ACUTE CHANGE OF CONDITION NOTED DURING THE SHIFT. ENDORSED TO PM NURSE TO CONTINUE CARE. CL WITHIN REACHED AND SAFETY MAINTAINED.
[2016-08-16 20:00] VITALS: BP 101/48
[2016-08-17] VITALS: BP 138/78
--- NOTE | 2016-08-17 00:53 | NUR ---
ASLEEP, AROUSABLE,RESTING QUIETELY,TOLERATING CURRENT VENTILATOR SETTINGS.B/S ARE EQUAL CRACKLES,SECRETIONS,YELLOWISH. SKIN WARM DRY TO TOUCH,COLOR IS FAIR. VENTILATOR ALARMS ARE AUDIBLE AND FUNCTIONAL. POWER PLUGGED TO RED WALL OUTLET. CONTINUE VENTILATOR SUPPORT. SALLY MINA. Addendum: 08/17/16 at 0100 by GLEN CONNELL RT Amended: Links added.
[2016-08-17] MEDS: IPRATROPIUM NEB FS 0.5 MG/2.5 ML AMPUL.NEB NEB SCH ×4 (01:21→19:30)
[2016-08-17] MEDS: ALBUTEROL FS 2.5 MG/3 ML VIAL.NEB NEB SCH ×4 (01:21→19:30)
[2016-08-17] MEDS: LEVETIRACETAM SOL (5 ML) 100 MG/ML UDC GT SCH ×2 (01:55→12:15)
[2016-08-17] MEDS: NEOMY SULF/BACITRAC ZN/POLY 15 GM TUBE TP SCH ×3 (03:53→14:09)
[2016-08-17 04:00] VITALS: BP 101/49
--- NOTE | 2016-08-17 05:00 | NUR ---
ACCOUNT EXECUTIVE SALES REPRESENTATIVE - REC'D PT. TRACH/VENTED. VERY LARGE ABDOMEN W/PEG LEAKING TF FROM [place] SITE. TF WAS ALL OVER PT. & THE BED. NAVAL ARCHITECT SPECIALIST INFORMED & TF WAS STOPPED. A COMPLETE BEDBATH WAS ADM. AT [place]. PT.IS DROWSY, VSS, AFEBRILE, ANURIC. PT.HAS ORDERS FOR DIALYSIS TODAY. RT.C/W HD CATH INTACT. LUE PICC LINE HAS 0.9%NS AT TKO. WILL ENDORSE PEG SITUATION TO DAYSHIFT RN. PT.HAD A 6 SEC. RUN OF VFIB AT 23:41 PM. PT. WAS ASYMPTOMATIC/RESTING W/EYES CLOSED. TELE BOX WAS REPLACED DUE TO PROBLEMS W/ONLY RECEIVING ONE LEAD INSTEAD OF 6 ON FRONT MONITOR. CONT. POC.
[2016-08-17] MEDS: LACTULOSE 10 G/15 ML UDC (PYXIS) PO SCH ×3 (05:01→20:52)
[2016-08-17] MEDS: METRONIDAZOLE 500MG/ NS 100ML 500 MG in PREMIX 1 EA IV SCH ×3 (05:01→23:06)
[2016-08-17] MEDS: IV NS 0.9% 250 ML IV PRN (05:01)
[2016-08-17 06:15] LABS: BASOPHILS % (AUTO) 0.3 % (0.0-2.0); EOSINOPHILS # (AUTO) 0.1 /CMM (0.0-0.7); HEMATOCRIT 28 % (39-51); HEMOGLOBIN 9.2 g/dL (13.5-17.5); LYMPHOCYTES # (AUTO) 0.9 /CMM (0.8-4.8); MEAN CORPUSCULAR HEMOGLOBIN 31 PG (26.0-33.0); MEAN CORPUSCULAR HGB CONC 33 g/dl (31.0-36.0); MEAN CORPUSCULAR VOLUME 94 fL (80-96); MONOCYTES # (AUTO) 1.3 /CMM (0.1-1.30); MONOCYTES % (AUTO) 9.5 % (2.0-12.0); NEUTROPHILS # (AUTO) 11.1 /CMM (1.8-8.9); NEUTROPHILS % (AUTO) 82.2 % (43.0-81.0); PLATELET COUNT (AUTO) 191 /CMM (150-450); RED BLOOD CELL COUNT(AUTO) 2.94 MIL/uL (4.5-6.0); WHITE BLOOD COUNT (AUTO) 13.5 K/uL (4.3-11.0)
[2016-08-17 07:06] LABS: CALCIUM, SERUM 8.3 mg/dL (8.5-10.1); CREATININE 4.4 mg/dL (0.6-1.3); MAGNESIUM 2.1 mg/dL (1.8-2.4); PHOSPHORUS 5.9 mg/dL (2.5-4.9); POTASSIUM 3.8 mmol/L (3.5-5.1)
[2016-08-17 08:00] VITALS: BP 90/38
[2016-08-17] MEDS: MULTIVITAMIN LIQ 5 ML UDC GT SCH (09:00)
[2016-08-17] MEDS: LACTOBACILLUS RHAMNOSUS GG 1 EACH CAP.SPRINK PO SCH ×2 (09:00→16:04)
[2016-08-17] MEDS: ZINC SULFATE 220 MG CAPSULE GT SCH (09:00)
[2016-08-17] MEDS: AMIODARONE HCL 200 MG TABLET GT SCH ×2 (09:00→16:03)
[2016-08-17] MEDS: CHOLECALCIFEROL 1,000 UNIT TABLET (VIT D3) GT SCH (09:00)
[2016-08-17] MEDS: Z GUARD REMEDY 2 OZ OINT TP SCH ×2 (09:25→16:04)
[2016-08-17] MEDS: PANTOPRAZOLE 40 MG VIAL IV SCH ×2 (09:30→23:05)
--- NOTE | 2016-08-17 09:30 | NUR ---
RN PERRY COLLET MAKER MADE AWARE THAT PATIENT G TUBE IS LEAKING PER GAS LINE INSTALLER SUPERVISOR NURSE. RECEIVED ORDERS TO FOLLOW UP WITH GI MD WHEN HE IS HERE.
[2016-08-17 12:00] VITALS: BP 92/46
[2016-08-17 16:00] VITALS: BP 93/46
--- NOTE | 2016-08-17 16:05 | NUR ---
COUNTING MACHINE OPERATOR CLARIFIED WITH PHARMACIST TO HOLD AMIKACIN POST DIALYSIS AND GIVE VANCOMYCIN POST DIALYSIS. LEVELS REVIEWED.
--- NOTE | 2016-08-17 19:30 | NUR ---
PERRY RN INITIAL NOTES RECEIVED PATIENT ASLEEP IN BED, EASILY AROUSEABLE TO LIGHT TOUCH, NONVERBAL, BUT MOUTHS WORDS. TRACH MIDLINE AND INTACT, BREATHING EVEN AND NONLABORED, ON MECHANICAL VENT AT PRESCRIBED SETTINGS, TOLERATING WELL, FREE FROM ANY S/S OF RESPIRATORY DISTRESS. GT CLAMPED AT THIS TIME, CONTINUES TO LEAK. ON TELEMETRY MONITORING, REVEALING SINUS RHYTHM WITH BBB, HR = 70S. CALL LIGHT LEFT WITHIN EASY REACH, BED IN LOWEST AND LOCKED POSITION. WILL CONTINUE TO CLOSELY MONITOR
[2016-08-17 20:00] VITALS: BP 107/47
--- NOTE | 2016-08-17 20:15 | NUR ---
RN NOTES HD NURSE AT BEDSIDE. HD STARTED, WILL CONTINUE TO CLOSELY MONITOR.
--- NOTE | 2016-08-17 21:27 | NUR ---
[facility] midline and breath sounds equal bilateral. Treatment given as ordered. No adverse reactions. Patient suctioned as need it , yellow thick secritions. Vent plugged into red outlet and alarms set and functioning. Ambu bag at the bed site.
--- NOTE | 2016-08-17 23:30 | NUR ---
RN NOTES HD COMPLETED AT THIS TIME, VS STABLE. WILL CONTINUE TO CLOSELY MONITOR
[2016-08-18] VITALS (10 sets, daily range): BP systolic 72–104; BP diastolic 40–54
[2016-08-18] MEDS: ALBUTEROL FS 2.5 MG/3 ML VIAL.NEB NEB SCH ×4 (00:40→19:42)
[2016-08-18] MEDS: IPRATROPIUM NEB FS 0.5 MG/2.5 ML AMPUL.NEB NEB SCH ×4 (00:41→19:42)
--- NOTE | 2016-08-18 01:00 | NUR ---
RN NOTES VANCOMYCIN ADMINISTERED POST HD. AMIKACIN HELD FOR ELEVATED LEVELS. WILL MONITOR CLOSELY
[2016-08-18] MEDS ORDERED: SECONDARY IV SET 1 EA INFUS.SET MC ONE (01:08)
[2016-08-18] MEDS: LEVETIRACETAM SOL (5 ML) 100 MG/ML UDC GT SCH ×2 (01:19→13:17)
[2016-08-18] MEDS: VANCOMYCIN 500 MG in IV D5W 100 ML IV PRN (01:19)
[2016-08-18] MEDS: NEOMY SULF/BACITRAC ZN/POLY 15 GM TUBE TP SCH ×3 (03:27→16:01)
[2016-08-18] MEDS: METRONIDAZOLE 500MG/ NS 100ML 500 MG in PREMIX 1 EA IV SCH ×3 (05:19→22:43)
[2016-08-18] MEDS: LACTULOSE 10 G/15 ML UDC (PYXIS) PO SCH ×3 (05:19→22:49)
[2016-08-18] MEDS ORDERED: IV NS 0.9% 250 ML IV ONE (05:28)
--- NOTE | 2016-08-18 07:26 | NUR ---
RN CLOSING NOTES PATIENT RESTIONG COMFORTABLY IN BED, CONTINUES ON VENT. WILL ENDORSE PATIENT TO THE AM SHIFT NURSE FOR MAREN
[2016-08-18 07:50] LABS: CALCIUM, SERUM 8.2 mg/dL (8.5-10.1); CREATININE 3.9 mg/dL (0.6-1.3)
[2016-08-18] MEDS: AMIODARONE HCL 200 MG TABLET GT SCH ×2 (09:25→17:27)
[2016-08-18] MEDS: CHOLECALCIFEROL 1,000 UNIT TABLET (VIT D3) GT SCH (09:25)
[2016-08-18] MEDS: ZINC SULFATE 220 MG CAPSULE GT SCH (09:26)
[2016-08-18] MEDS: LACTOBACILLUS RHAMNOSUS GG 1 EACH CAP.SPRINK PO SCH ×3 (09:26→22:44)
[2016-08-18] MEDS: PANTOPRAZOLE 40 MG VIAL IV SCH ×2 (09:26→22:43)
[2016-08-18] MEDS: MULTIVITAMIN LIQ 5 ML UDC GT SCH (09:26)
[2016-08-18] MEDS: Z GUARD REMEDY 2 OZ OINT TP SCH ×2 (09:27→17:27)
[2016-08-18] MEDS: MORPHINE SULFATE INJ 2 MG/ML DISP.SYRIN IV PRN (10:56)
--- NOTE | 2016-08-18 12:09 | NUR ---
JEREMY PERRY; BP BP TAKEN BY TORSTEN INITIAL BP 67/38, RETAKEN 72/40. I RETOOK BP USING MULTIPLE EXTREMTIES BP READING 79/43,84/54,75/54 PRIMARY CALLED WILL F/U WITH CALL BACK PT IS AWAKE AND ABLE TO FOLLOW COMMANDS. PTS AT BEDSIDE UPDATE GIVEN, Addendum: 08/18/16 at 1351 by FADIA TARIQ RN 1230; DR TIJERINA CALLED BACK ORDERED FOR NORMAL SALINE 500ML BOLUS. PHARMACY CALLED TO VERIFY MEDICATION 1300; BP RE-TAKEN NOW BP 93/44. WILL CONTINUE TO MONITOR CLOSELY
[2016-08-18] MEDS ORDERED: IV NS 0.9% 500 ML IV ONE (12:30)
[2016-08-18] MEDS: EPOETIN ALFA (10,000 UNIT) 10,000 UNIT/ML VIAL SQ SCH (16:01)
--- NOTE | 2016-08-18 17:17 | NUR ---
Pt tolerated current vent settings well. No changes made. Pt trach is secure. Vent is plugged into a red outlet, alarms set and audible. BVM is at bedside. Addendum: 08/18/16 at 1718 by SARKIS HESS RT Amended: Links added.
--- NOTE | 2016-08-18 21:35 | NUR ---
RN NOTE. INITIAL ASSESSMENT. RECEIVED THE PT REST ON THE BED. AWAKE, ALERT, FOLLOW COMMANDS. CARDIAC MON. SALINE LOCK. RT UPPER CHEST HD CATH. MONITOR SHOWING NSR, PT IS NPO. ABDOMEN DISTENDED.GT INTACT. . IV RT UPPER ARM PICC LINE. RT UPPER CHEST HD CATH.HOB ELEVATED. AFEBRILE. WILL CONTINUE TO MONITOR VITALS.
[2016-08-18] MEDS: IV NS 0.9% 250 ML IV PRN (22:56)
[2016-08-19] VITALS (7 sets, daily range): BP systolic 73–112; BP diastolic 36–57
[2016-08-19] MEDS: IPRATROPIUM NEB FS 0.5 MG/2.5 ML AMPUL.NEB NEB SCH ×4 (00:37→19:50)
[2016-08-19] MEDS: ALBUTEROL FS 2.5 MG/3 ML VIAL.NEB NEB SCH ×4 (00:37→19:49)
[2016-08-19] MEDS: LEVETIRACETAM SOL (5 ML) 100 MG/ML UDC GT SCH ×2 (01:38→13:27)
[2016-08-19] MEDS: NEOMY SULF/BACITRAC ZN/POLY 15 GM TUBE TP SCH ×3 (03:38→14:42)
[2016-08-19] MEDS: METRONIDAZOLE 500MG/ NS 100ML 500 MG in PREMIX 1 EA IV SCH ×3 (04:22→20:56)
[2016-08-19] MEDS: LACTULOSE 10 G/15 ML UDC (PYXIS) PO SCH ×4 (04:22→21:00)
[2016-08-19] MEDS: MORPHINE SULFATE INJ 2 MG/ML DISP.SYRIN IV PRN (04:23)
--- NOTE | 2016-08-19 04:55 | NUR ---
RN NOTE AM CARE. ORAL CARE, BED BATH GIVEN. LINEN CHANGED, REMAINING SAME VENT SETTING. SAT 98%. AUDIO PRODUCTION INSTRUCTOR SHOWING S TACH. GT CLAMPED. NPO. IV LT UPPER ARM PICC LINE. TKO RUNNING. AFEBRILE. HOB ELEVATED. TURN AND REPOSITION Q2H. WILL CONTINUE TO MONITOR VITALS.
[2016-08-19 07:12] LABS: CALCIUM, SERUM 8.3 mg/dL (8.5-10.1); CREATININE 4.3 mg/dL (0.6-1.3); POTASSIUM 4.2 mmol/L (3.5-5.1)
[2016-08-19] MEDS: MULTIVITAMIN LIQ 5 ML UDC GT SCH (08:33)
[2016-08-19] MEDS: CHOLECALCIFEROL 1,000 UNIT TABLET (VIT D3) GT SCH (08:34)
[2016-08-19] MEDS: ZINC SULFATE 220 MG CAPSULE GT SCH (08:34)
[2016-08-19] MEDS: LACTOBACILLUS RHAMNOSUS GG 1 EACH CAP.SPRINK PO SCH ×2 (08:34→16:44)
[2016-08-19] MEDS: PANTOPRAZOLE 40 MG VIAL IV SCH ×2 (08:34→20:56)
[2016-08-19] MEDS: AMIODARONE HCL 200 MG TABLET GT SCH ×2 (08:35→16:44)
[2016-08-19] MEDS: Z GUARD REMEDY 2 OZ OINT TP SCH ×2 (08:37→16:44)
--- NOTE | 2016-08-19 09:53 | NUR ---
RN NOTE DR PLUNKETT ORDERED RT SIDE THORACENTESIS TODAY,CONSENT TO TAKEN
--- NOTE | 2016-08-19 10:00 | NUR ---
RN NOTE RECEIVED PT ON BED, AWAKE, ALERT, FOLLOWS SIMPLE COMMANDS. ON TELE SHOWS SR AT THIS TIME , RT UPPER CHEST HD CATH SITE AND L UPPER ARM PICC LINE SITE CDI, PT IS NPO. ABDOMEN DISTENDED.GT INTACT, NO DRAINAGE NOTED AT THE GT SITE AT THIS TIME .HOB ELEVATED. AFEBRILE. WILL CONTINUE TO MONITOR PT CLOSELY AND NOTIFYING MD FOR ANY SIGNIFICANT CHANGES.
--- NOTE | 2016-08-19 11:00 | NUR ---
RN NOTES DR SOLIS NOTIFIED REGARDING SUSTAIN A. FIB , PT IS ASYMPTOMATIC , PT IS STABLE, CONTINUE TO MONITOR.
[2016-08-19] MEDS ORDERED: SECONDARY IV SET 1 EA INFUS.SET MC ONE ×2 (12:14→20:46)
[2016-08-19] MEDS ORDERED: ALBUMIN 25% 25 GM in PREMIX 1 EA IV ONE (12:30)
[2016-08-19] MEDS ORDERED: METRONIDAZOLE 500 MG TABLET PO SCH (13:00)
--- NOTE | 2016-08-19 18:01 | NUR ---
RN NOTES VANCO TROUGH LEVE=20 , VANCO IV HELD PER PHARMACIST [place] .
--- NOTE | 2016-08-19 18:21 | NUR ---
RN NOTES PT STABLE, TRACH CARE DONE, NO LEAKING NOTED AT THE PEG SITE AT THIS TIME, L UPPER ARM PICC LINE CDI, PT MEDICATED PER MD ORDER , NO SIGNIFICANT CHANGES NOTED ON THIS SHIFT .
--- NOTE | 2016-08-19 20:00 | NUR ---
RN NOTES RECEIVED PX AWAKE, ALERT, ORIENTED X 2, MOUTHS WORDS, WITH TRACH WITH INTACT CUFF CONNECTED TO VENT; S/SX OF DISTRESS; RIGHT CW HD CATH; LEFT UA PICC LINE; G TUBE CLAMPED WITH DRESSING CLEAN,DRY,INTACT; WITH DIAPER ON; HEELS OFFLOADED; RECOMMENDED DVT PUMP TO PATIENT BUT HE REFUSED; DENIED PAIN, SOB, N/V; REPOSITIONED TO THE RIGHT WITH HOB AT 30 ANGLE; SUCTIONED ORALLY AND TREACHEALLY; DISCUSSED PLAN OF CARE; SEE SKIN FLOWSHEET FOR SKIN ASSESSMENT.
[2016-08-19] MEDS ORDERED: IV SET PRIMARY PUMP SET 1 EA INFUS.SET MC ONE (20:46)
[2016-08-19] MEDS: IV NS 0.9% 250 ML IV PRN (20:56)
--- NOTE | 2016-08-19 21:00 | NUR ---
RN NOTES DUE MEDS GIVEN; PX HOWEVER REFUSED LACTULOSE VIA GTUBE, EXPLAINED/EDUCATED ON ITS NEED. Addendum: 08/19/16 at 2126 by KANDIS DIMAS RN AMIKACIN LEVEL STILL PENDING.
--- NOTE | 2016-08-19 22:53 | NUR ---
RN NOTES PX ON A FIB FROM 116-135, BP 98/40, NEURO STATUS UNCHANGED; CALLED DR. SOLIS AND MADE AWARE.
[2016-08-20] VITALS (8 sets, daily range): BP systolic 85–146; BP diastolic 36–61
[2016-08-20] MEDS ORDERED: IV SET PRIMARY PUMP SET 1 EA INFUS.SET MC ONE (00:01)
[2016-08-20] MEDS: LEVETIRACETAM SOL (5 ML) 100 MG/ML UDC GT SCH ×2 (00:07→12:12)
[2016-08-20] MEDS: IV NS 0.9% 250 ML IV PRN ×3 (00:08→21:15)
--- NOTE | 2016-08-20 00:15 | NUR ---
RN NOTES REASSESSED; BP DECREASED TO 88/36, NS 250 BOLUS GIVEN, A FIB WITH HR OF 107, PX DENIED PAIN, SOB, N/V; REPOSITIONED; SUCTIONED ORALLY AND TRACHEALLY
[2016-08-20] MEDS: ALBUTEROL FS 2.5 MG/3 ML VIAL.NEB NEB SCH ×5 (02:13→20:03)
[2016-08-20] MEDS: IPRATROPIUM NEB FS 0.5 MG/2.5 ML AMPUL.NEB NEB SCH ×4 (02:13→20:03)
[2016-08-20] MEDS: MORPHINE SULFATE INJ 2 MG/ML DISP.SYRIN IV PRN (02:22)
[2016-08-20] MEDS: NEOMY SULF/BACITRAC ZN/POLY 15 GM TUBE TP SCH ×3 (02:23→15:10)
[2016-08-20] MEDS ORDERED: AMIKACIN 250 MG/ML VIAL ONE (02:44)
[2016-08-20] MEDS ORDERED: IV D5W 100 ML IV ONE (02:46)
[2016-08-20] MEDS: AMIKACIN 400 MG in IV D5W 100 ML IV PRN (03:01)
--- NOTE | 2016-08-20 05:00 | NUR ---
RN NOTES EARLY AM CARE RENDERED; HAD 1 LARGE LOOSE BM, PERICARE GIVEN, ALSO RENDERED ORAL AND TRACH CARE, CHANGED DRESSING ON THE G TUBE APPLIED ABX; APPLIED BARRIER CREAM ON PERIAREA, SACRAL AREA; CHANGED MEPILEXES ON THE LOWER ABDOMEN, PROCEDURES TOLERATED.
[2016-08-20] MEDS: LACTULOSE 10 G/15 ML UDC (PYXIS) PO SCH ×3 (05:33→21:17)
[2016-08-20] MEDS: METRONIDAZOLE 500MG/ NS 100ML 500 MG in PREMIX 1 EA IV SCH ×3 (05:34→21:16)
--- NOTE | 2016-08-20 06:17 | NUR ---
RN NOTES PX HR WENT BACK TO A FIB 105-130, WITH BP AT 91/39, NEURO STATUS UNCHANGED, DENIED PAIN, SOB, CHEST PAIN, DIZZINESS; REPOSITIONED PX WITH HOB AT 30 ANGLE, SUCTIONED ORALLY AND TRACHEALLY, NO NEW SKIN BREAKDOWN, ALL DRESSSINGS REMAINED CLEAN DRY INTACT; PICC PATENT AND INTACT; CONTINUED TO MONITOR, WILL ENDORSE TO NEXT RN.
[2016-08-20 07:30] LABS: CALCIUM, SERUM 8.4 mg/dL (8.5-10.1); CREATININE 4.2 mg/dL (0.6-1.3); POTASSIUM 4.3 mmol/L (3.5-5.1)
--- NOTE | 2016-08-20 08:00 | NUR ---
HOME OFFICE CLAIM SPECIALIST RECEIVED PT IN BED AWAKE ALERT X2, PT IS TRACHED ON VENT SETTINGS NOTED, AFIB ON TELE HR 110-130S AFIB ON AND OF OF SINUS TACH, VS STABLE, GTUBE CLAMPED TILL FURTHER ORDERS WILL FOLLOW UP WITH MD, EDEMA PRESENT ALL EXTREMITIES AND ADB DISTENDED WITH SKIN TEARS, IV ACCESS PATENT HARD TO FLUSH WITH TKO RUNNING, HD HERB NOTED, TURN AND REPOSITION PT IN BED FALL PRECAUTIONS TAKEN WILL CONTINUE TO MONITOR.
[2016-08-20] MEDS: ZINC SULFATE 220 MG CAPSULE GT SCH (08:53)
[2016-08-20] MEDS: CHOLECALCIFEROL 1,000 UNIT TABLET (VIT D3) GT SCH (08:53)
[2016-08-20] MEDS: MULTIVITAMIN LIQ 5 ML UDC GT SCH (08:54)
[2016-08-20] MEDS: Z GUARD REMEDY 2 OZ OINT TP SCH ×2 (08:54→16:35)
[2016-08-20] MEDS: AMIODARONE HCL 200 MG TABLET GT SCH ×2 (08:54→16:34)
[2016-08-20] MEDS: LACTOBACILLUS RHAMNOSUS GG 1 EACH CAP.SPRINK PO SCH ×2 (08:54→16:34)
[2016-08-20] MEDS: PANTOPRAZOLE 40 MG VIAL IV SCH ×2 (08:54→21:16)
[2016-08-20] MEDS: METOPROLOL TARTRATE 25 MG TABLET PEG SCH ×2 (14:23→21:00)
[2016-08-20 14:42] LABS: EOSINOPHILS # (AUTO) 0.1 /CMM (0.0-0.7); EOSINOPHILS % (AUTO) 0.4 % (0.0-6.0); HEMATOCRIT 29 % (39-51); HEMOGLOBIN 9.5 g/dL (13.5-17.5); LYMPHOCYTES # (AUTO) 0.9 /CMM (0.8-4.8); LYMPHOCYTES % (AUTO) 6.1 % (20.0-44.0); MEAN CORPUSCULAR HEMOGLOBIN 31 PG (26.0-33.0); MEAN CORPUSCULAR HGB CONC 33 g/dl (31.0-36.0); MEAN CORPUSCULAR VOLUME 95 fL (80-96); MONOCYTES # (AUTO) 1.1 /CMM (0.1-1.30); MONOCYTES % (AUTO) 7.7 % (2.0-12.0); NEUTROPHILS # (AUTO) 12.9 /CMM (1.8-8.9); NEUTROPHILS % (AUTO) 85.8 % (43.0-81.0); PLATELET COUNT (AUTO) 202 /CMM (150-450); RDW COEFFICIENT OF VARIATION 17.5 (11.5-15.0); RED BLOOD CELL COUNT(AUTO) 3.07 MIL/uL (4.5-6.0)
[2016-08-20] MEDS: EPOETIN ALFA (10,000 UNIT) 10,000 UNIT/ML VIAL SQ SCH (15:10)
[2016-08-21] VITALS: BP 98/45
[2016-08-21] MEDS: LEVETIRACETAM SOL (5 ML) 100 MG/ML UDC GT SCH ×2 (01:09→13:06)
[2016-08-21] MEDS: IPRATROPIUM NEB FS 0.5 MG/2.5 ML AMPUL.NEB NEB SCH ×4 (01:56→19:54)
[2016-08-21] MEDS: ALBUTEROL FS 2.5 MG/3 ML VIAL.NEB NEB SCH ×4 (01:56→19:54)
[2016-08-21] MEDS: NEOMY SULF/BACITRAC ZN/POLY 15 GM TUBE TP SCH ×3 (03:24→15:59)
[2016-08-21 04:00] VITALS: BP 97/43
[2016-08-21] MEDS: LACTULOSE 10 G/15 ML UDC (PYXIS) PO SCH ×3 (05:17→20:59)
[2016-08-21] MEDS: METRONIDAZOLE 500MG/ NS 100ML 500 MG in PREMIX 1 EA IV SCH ×3 (05:17→20:58)
--- NOTE | 2016-08-21 06:18 | NUR ---
RN NOTES 0600 CONDITION UNCHANGED. ALERT AND ORIENTED. VENT SETTING REMAINS THE SAME. GT REMAINS CLAMPED. MEDS GIVEN VIA GT. STILL WITH DISTENDED ABDOMEN. WILL CONTINUE TO MONITOR. ANURIC AT THIS TIME. CALL LIGHT WITHIN REACH. NEEDS ATTENDED TO.
[2016-08-21 07:24] LABS: CALCIUM, SERUM 8.3 mg/dL (8.5-10.1); CREATININE 4.8 mg/dL (0.6-1.3); POTASSIUM 4.6 mmol/L (3.5-5.1)
--- NOTE | 2016-08-21 07:30 | NUR ---
RN AM NOTES RECEIVED PT IN BED AWAKE ALERT X2, WITH SHILEY 8, VENT DEPENDENT WITH SETTINGS ORDERED. TELEMETRY READS SR HR 84, NO SIGNS OF DISCOMFORT, OBDULIA PICC LINE TKO AND RCW HD, ONGOING, GTUBE CLAMPED TILL FURTHER ORDERS WILL FOLLOW UP WITH MD, EDEMA PRESENT ALL EXTREMITIES AND ABDOMEN DISTENDED WITH SKIN TEARS, WILL TURN AND REPOSITION, CALL LIGHT WITHIN REACH. FALL PRECAUTIONS, WILL CONTINUE TO MONITOR.
[2016-08-21 08:00] VITALS: BP 97/50
--- NOTE | 2016-08-21 08:00 | NUR ---
ANIMAL CYTOLOGIST NOTES HD COMPLETED WITH 1 LITER OUT.
[2016-08-21] MEDS: METOPROLOL TARTRATE 25 MG TABLET PEG SCH ×2 (09:00→21:00)
[2016-08-21] MEDS: AMIODARONE HCL 200 MG TABLET GT SCH ×2 (09:00→16:43)
--- NOTE | 2016-08-21 09:30 | NUR ---
APPLICATIONS SYSTEMS ANALYST NOTES ADMINISTERED DUE MEDS.
[2016-08-21] MEDS: PANTOPRAZOLE 40 MG VIAL IV SCH ×2 (09:31→20:59)
[2016-08-21] MEDS: MULTIVITAMIN LIQ 5 ML UDC GT SCH (09:31)
[2016-08-21] MEDS: LACTOBACILLUS RHAMNOSUS GG 1 EACH CAP.SPRINK PO SCH ×2 (09:32→16:43)
[2016-08-21] MEDS: ZINC SULFATE 220 MG CAPSULE GT SCH (09:32)
[2016-08-21] MEDS: CHOLECALCIFEROL 1,000 UNIT TABLET (VIT D3) GT SCH (09:37)
[2016-08-21] MEDS: Z GUARD REMEDY 2 OZ OINT TP SCH ×2 (09:38→16:43)
[2016-08-21] MEDS: VANCOMYCIN 500 MG in IV D5W 100 ML IV PRN (09:54)
[2016-08-21 12:00] VITALS: BP 101/58
--- NOTE | 2016-08-21 13:07 | NUR ---
SENIOR STATISTICAL PROGRAMMER NOTES STARTED FLAGYL IV.
[2016-08-21 16:00] VITALS: BP 88/37
[2016-08-21] MEDS: IV NS 0.9% 250 ML IV PRN (16:00)
--- NOTE | 2016-08-21 16:44 | NUR ---
HEATING PLANT SUPERINTENDENT NOTES DR. Mary CHRISTENSEN AT BEDSIDE EARLIER. NOTIFIED THAT PEG IS NOT BEING USED DUE TO LEAKING. DR. LOPEZ WAS NOTIFIED. PER DR. CHRISTENSEN TO START GTF TOMORROW AFTER PARACENTESIS.
[2016-08-21] MEDS: MORPHINE SULFATE INJ 2 MG/ML DISP.SYRIN IV PRN (18:06)
--- NOTE | 2016-08-21 18:53 | NUR ---
RN CLOSING NOTES PT RESTING IN BED COMFORTABLY. ALERT X2, WITH SHILEY 8, VENT DEPENDENT WITH SETTINGS ORDERED. TELEMETRY READS SR HR 82, NO SIGNS OF DISCOMFORT, OBDULIA PICC LINE TKO AND RCW HD, ONGOING, GTUBE CLAMPED TILL FURTHER ORDERS WILL FOLLOW UP WITH MD, EDEMA PRESENT ALL EXTREMITIES AND ABDOMEN DISTENDED WITH SKIN TEARS, TURNED AND REPOSITIONED. PM CARE RENDERED. PRESCRIBED WOUND TREATMENT DONE. ALL NEEDS MET. CALL LIGHT WITHIN REACH. FALL PRECAUTIONS, NO OTHER SIGNIFICANT CHANGE IN CONDITION. WILL ENDORSE TO NEXT SHIFT FOR MAREN.
[2016-08-21 20:00] VITALS: BP 82/38
[2016-08-21] MEDS ORDERED: IV NS 0.9% 1,000 ML IV ONE (21:30)
[2016-08-21] MEDS ORDERED: IV NS 0.9% 1,000 ML ONE (21:30)
--- NOTE | 2016-08-21 21:30 | NUR ---
UTILITY BILL COLLECTOR: DR. BRYON BURCIAGA NOTIFIED OF PT. HAVING LOW BP. WT ORDER TO GIVE 1L NS TO RUN WITHIN 2 HOURS. NOTED AND CARRIED OUT. NO SIGNIFICANT MAREN. PT REMAINED ALERT AND AWAKE. ABLE TO MOUTH WORDS AND FOLLOW SIMPLE COMMANDS. TOLERATING VENT SETTINGS ORDERED WT NO ACUTE DISTRESS. NO EVIDENCE OF DISCOMFORT. GT CLAMPED WT NO ACTIVE LEAK AT THIS TIME. WILL CONTINUE TO MONITOR.
[2016-08-21] MEDS ORDERED: IV SET PRIMARY PUMP SET 1 EA INFUS.SET MC ONE (21:36)
--- NOTE | 2016-08-21 23:45 | NUR ---
APPOINTMENT SPECIALIST: PT NOTED WT DISLODGED GT AND WT LARGE AMT. OF LIGHT GREENISH LEAKAGE. NO ACUTE DISTRESS. NO DISCOMFORT NOTED. NO ACTIVE BLEEDING. CHARGE NURSE MICHAEL MADE AWARE. DANUTA WILKS. AWAITING TO CALL BACK. REASSESSED BP AFTER 1L NS= 93/48. WILL CONTINUE TO MONITOR.
[2016-08-22] VITALS (100 sets, daily range): BP systolic 62–125; BP diastolic 18–84
--- NOTE | 2016-08-22 00:40 | NUR ---
FINANCIAL COORDINATOR: DR. BURCIAGA NOTIFIED OF GT DISLODGMENT AND SAID TO FOLLOW UP IN AM. ALSO MADE AWARE THAT PT IS ON CORDARONE VIA GT WT EPISODE OF HR IN 120s-130s DURING DAY SHIFT AND START OF SHIFT AND IF WANT TO CHANGE IT TO AMIO. DRIP JUST LIKE FEW DAYS AGO. SAID HE DOES NOT NEED TO BE ON AMIO. DRIP AT THIS TIME. ALSO MADE AWARE THAT PT IS ON KEPPRA WT ORDER TO CHANGE IT TO IV. NOTED AND CARRIED OUT.
[2016-08-22] MEDS: ALBUTEROL FS 2.5 MG/3 ML VIAL.NEB NEB SCH ×4 (00:48→20:12)
[2016-08-22] MEDS: IPRATROPIUM NEB FS 0.5 MG/2.5 ML AMPUL.NEB NEB SCH ×4 (00:48→20:12)
[2016-08-22] MEDS ORDERED: LEVETIRACETAM (500MG) 500 MG/5 ML VIAL IV ONE (00:56)
[2016-08-22] MEDS ORDERED: LEVETIRACETAM (500MG) 500 MG in IV NS 0.9% 100 ML IV SCH (01:00)
[2016-08-22] MEDS ORDERED: IV NS 0.9% 100 ML IV ONE (01:06)
[2016-08-22] MEDS: NEOMY SULF/BACITRAC ZN/POLY 15 GM TUBE TP SCH ×3 (02:21→15:02)
--- NOTE | 2016-08-22 04:00 | NUR ---
LUBRICATOR GRANULATOR: PT. NOTED TO HAVE 02 SAT BET. 88-90%. RT INCREASED FIO2 TO 45%. WILL CONTINUE TO MONITOR. LOW BP=74/33, HR=91. PT REMAINED ALERT AND AWARE. ABLE TO MOUTH WORDS AND MAKE NEEDS KNOWN. PER DR. BRYON BURCIAGA'S CONVERSATION AT 2130, WILL GIVE ALBUMIN 25% TO RUN AT 200ML/HR IF CONTINUE TO BE HYPOTENSIVE.
[2016-08-22] MEDS: LACTULOSE 10 G/15 ML UDC (PYXIS) PO SCH ×3 (04:20→21:00)
[2016-08-22] MEDS ORDERED: ALBUMIN 25% 100 ML IV ONE (04:23)
[2016-08-22] MEDS ORDERED: ALBUMIN 25% 25 GM in PREMIX 1 EA IV ONE (04:30)
--- NOTE | 2016-08-22 04:30 | NUR ---
MEDICAL LAB TECH INSTRUCTOR: REASSESSED AFTER GIVEN ALBUMIN AND BP STILL LOW AT 79/23, HR=96. REMAINED ALERT AND AWAKE. ABLE TO MAKE NEEDS KNOWN. PAGED MD. AWAITING TO CALL BACK. CHARGE NURSE MICHAEL MADE AWARE.
[2016-08-22] MEDS ORDERED: IV SET PRIMARY PUMP SET 1 EA INFUS.SET MC ONE ×6 (04:32→22:11)
--- NOTE | 2016-08-22 05:15 | NUR ---
PT'S BLOOD PRESSURE HAS REMAINED LOW DESPITE 1L BOLUS & ALBUMIN GIVEN BY PRIMARY NURSE SAMARIA. BP= 79/23, HR= 96. PAGED ON-CALL MD, DR. BURCIAGA AND OBTAINED THE FOLLOWING ORDERS: TRANSFER THE PT TO ICU AND START ON PHENYLEPHRINE TO KEEP MAP ABOVE 65. 0540- PT HAVING RUNS OF V-TACH WITH BBB, HR ELEVATED TO 150S THEN DECREASING BACK TO 90S. PAGED DR. ESTRADA. STAT EKG DONE DONE BY RT. 0600- PT TRANSFERRED TO ICU WITH SAMARIA RN AND LORE RT. BEDSIDE REPORT TO BE GIVEN. 06- PAGED AND SPOKE TO DR. RAMÍREZ (COVERING DR. ESTRADA) AND RELAYED INFORMATION REGARDING CARDIAC STATUS INCLUDING EKG RESULTS. PER MD, THEY WILL FOLLOW UP WITH PT IN THE MORNING. NO FURTHER ORDERS AT THIS TIME.
[2016-08-22] MEDS: METRONIDAZOLE 500MG/ NS 100ML 500 MG in PREMIX 1 EA IV SCH ×3 (05:19→21:19)
--- NOTE | 2016-08-22 05:42 | NUR ---
DUE TO PTS LOW BLOOD PRESSURE AND TACHYCARDIA PT IS BEING TRANSFERRED TO ICU. Addendum: 08/22/16 at 0543 by LORE CHIRINOS RT Amended: Links added.
[2016-08-22] MEDS ORDERED: DOSING PER PHARMACY-AMIKACI IV XX PRN (06:00)
[2016-08-22] MEDS ORDERED: PANTOPRAZOLE 40 MG/PACK PACK GT SCH (06:00)
[2016-08-22] MEDS ORDERED: VANCOMYCIN 500 MG in IV D5W 100 ML IV PRN (06:00)
[2016-08-22] MEDS ORDERED: LEVETIRACETAM SOL (5 ML) 100 MG/ML UDC GT SCH (06:00)
[2016-08-22] MEDS ORDERED: AMIKACIN 500 MG in IV D5W 100 ML IV PRN (06:00)
[2016-08-22] MEDS ORDERED: MICAFUNGIN SODIUM 100 MG in IV NS 0.9% 100 ML IV SCH (06:00)
[2016-08-22] MEDS ORDERED: AMIODARONE HCL 200 MG TABLET GT SCH (06:00)
--- NOTE | 2016-08-22 06:00 | NUR ---
received pt from [facility], s/p SVT and low BP, Afib controlled, pt alert, follows commands, on prince at 70mcg, on the vent, lungs congested, some non pitting edema, anuric, HD pt, abd distended, NPO, GT dislodged leaking, v/s stable, no pain, pt turned and repositioned.
[2016-08-22] MEDS ORDERED: IV D5W 250 ML IV ONE (06:13)
[2016-08-22] MEDS ORDERED: PHENYLEPHRINE 10 MG/ML VIAL ONE (06:14)
[2016-08-22] MEDS ORDERED: PHENYLEPHRINE 80 MG in IV D5W 250 ML IV PRN (06:30)
[2016-08-22 06:52] LABS: CALCIUM, SERUM 8.3 mg/dL (8.5-10.1); CREATININE 4.3 mg/dL (0.6-1.3); POTASSIUM 4.3 mmol/L (3.5-5.1)
[2016-08-22 07:00] LABS: INR 3.28 (0.87-1.13); PROTHROMBIN TIME 37.9 SECS (9.5-12.7)
[2016-08-22] MEDS ORDERED: DEXTROSE 50%-WATER 50 ML DISP.SYRIN ONE (07:03)
--- NOTE | 2016-08-22 07:50 | NUR ---
CONSTRUCTION CREW MEMBER:pt.is A/Ox2, c/o low R abdomen pain 07/11, O2 sat.89%, will suction, notified RT, had SVT in [facility]/transferred, Afib now?, repeated EKG: Afib, HR 110-140, Ramon-synephrine gtt 90 mcg now, GT is displaced, NPO now, was getting Amiodarone PO, GI MD is notified/waiting, BS was 45, D50/50 given, will recheck BS [id number], plan for Paracentesis today,INR 3.28, charge nurse updated, rehabilitation assistant was paged
--- NOTE | 2016-08-22 07:52 | NUR ---
RT PT RECEIVED TRACHED WITH A SHILEY 8 ON THE VENT WITH NOTED SETTINGS. PT IS AWAKE AND ALERT. VENT ALARMS ARE SET AND AUDIBLE WITH BVM BY [employer]. PUBLICATION EDITOR CUFF PRESSURE NOTED. VENT IS PLUGGED INTO RED OUTLET. SX MODERATE THICK YELLOW SECRETIONS. NO RESPIRATORY DISTRESS NOTED AT THIS TIME, WILL CONTINUE TO MONITOR. Addendum: 08/22/16 at 0951 by DANK ALMANZA RT Amended: Links added.
--- NOTE | 2016-08-22 07:55 | NUR ---
PHYSICIAN: , () were notified by night nurse report
--- NOTE | 2016-08-22 08:25 | NUR ---
RT FiO2 INCREASED TO 80% DUE TO LOW SpO2. Addendum: 08/22/16 at 0951 by DANK ALMANZA RT Amended: Links added.
[2016-08-22] MEDS: METOPROLOL TARTRATE 25 MG TABLET PEG SCH ×2 (09:00→21:00)
[2016-08-22] MEDS: MULTIVITAMIN LIQ 5 ML UDC GT SCH (09:00)
[2016-08-22] MEDS: AMIODARONE HCL 200 MG TABLET GT SCH ×2 (09:00→17:00)
[2016-08-22] MEDS: Z GUARD REMEDY 2 OZ OINT TP SCH ×2 (09:00→17:00)
[2016-08-22] MEDS: CHOLECALCIFEROL 1,000 UNIT TABLET (VIT D3) GT SCH (09:00)
[2016-08-22] MEDS: LACTOBACILLUS RHAMNOSUS GG 1 EACH CAP.SPRINK PO SCH ×2 (09:00→17:00)
[2016-08-22] MEDS: ZINC SULFATE 220 MG CAPSULE GT SCH (09:00)
--- NOTE | 2016-08-22 09:01 | NUR ---
CHOCOLATE REFINING ROLLER: afib to SVT short episode to SR per last hour,HR 90-100 now
[2016-08-22] MEDS: PANTOPRAZOLE 40 MG VIAL IV SCH ×2 (09:09→21:38)
--- NOTE | 2016-08-22 10:10 | NUR ---
POURER BULL LADLE: US RD called: INR 3.28, hold paracentesis to today
[2016-08-22] MEDS ORDERED: IV D5/ 0.9% NACL 1,000 ML IV PRN (10:16)
--- NOTE | 2016-08-22 10:17 | NUR ---
ULTRASOUND GUIDED THORACENTESIS ON HOLD DUE TO ELEVATED INR
[2016-08-22] MEDS: PHENYLEPHRINE 80 MG in IV D5W 250 ML IV PRN ×3 (10:21→21:31)
--- NOTE | 2016-08-22 10:30 | NUR ---
PACKAGING SPECIALIST: updated with pt.current condition, HR abnormals, Ramon-synephrine gtt, VS, I/O, GT dislodge, NPO, low BS episode, paracentesis on hold d/t high INR, ordered [id number] @75ml/h, , HD tomorrow (ok to get BCx2 with HD tomorrow), 2 units FFP, said: waiting
[2016-08-22] MEDS: LEVETIRACETAM (500MG) 500 MG in IV NS 0.9% 100 ML IV SCH ×2 (11:10→21:20)
[2016-08-22] MEDS ORDERED: IV NS 0.9% 250 ML IV ONE ×2 (12:00→14:04)
[2016-08-22] MEDS ORDERED: BLOOD IV SET 1 EA INFUS.SET MC ONE ×2 (12:24→14:04)
--- NOTE | 2016-08-22 13:00 | NUR ---
DEFENSIVE SECONDARY COACH: pt.is restless, disconnected TT-vent timex3, confused now, soft wrists restraints applied
--- NOTE | 2016-08-22 13:30 | NUR ---
FAMILY SERVICE WORKER: pt.c/o general,abdomen pain 8, Morphine 2mg IV given
[2016-08-22] MEDS: MORPHINE SULFATE INJ 2 MG/ML DISP.SYRIN IV PRN (13:35)
[2016-08-22] MEDS ORDERED: DIATR MEGLU/DIATRIZOATE SODIUM 30 ML BOTTLE (GASTROGRAPHIN) ONE (13:58)
--- NOTE | 2016-08-22 14:10 | NUR ---
FIELD SERVICE POULTRY TECHNICIAN: abdomen is still very distended, got serous leak around GT, changed dressing, KUB with gastrografin is done.
--- NOTE | 2016-08-22 14:45 | NUR ---
LAMBSKIN TRIMMER: pt.is A/Ox1, verbal reactive, rest now, SR 90-100, Ramon gtt 260mcg/m now, O2 sat. 86-91%, updated by RT,continue FiO2 100%
[2016-08-22] MEDS: EPOETIN ALFA (10,000 UNIT) 10,000 UNIT/ML VIAL SQ SCH (15:02)
--- NOTE | 2016-08-22 15:02 | NUR ---
INCREASED FIO2 FROM 80% TO 100% DUE TO SPO2 84-86% Addendum: 08/22/16 at 1503 by KARL SPRINGER RT Amended: Links added.
--- NOTE | 2016-08-22 15:20 | NUR ---
MATERIAL ASSEMBLER: max Ramon-synephrine gtt 300mcg/m running, paged
[2016-08-22] MEDS ORDERED: VASOPRESSIN INJ 50 UNIT in IV D5W 497.5 ML IV PRN ×2 (15:30→20:30)
--- NOTE | 2016-08-22 15:30 | NUR ---
[place] LINE ATTENDANT: charge nurse spoke with , updated with VS, IVF, max Ramon drip dose running, ordered: Vasopressin drip, pharmacy updated/unable to start Vasopressin now, switched for Levophed drip
[2016-08-22] MEDS ORDERED: NOREPINEPHRINE 16 MG in IV D5W 500 ML IV PRN (16:00)
--- NOTE | 2016-08-22 17:10 | NUR ---
FEEDER TENDER: is in room, updated with pt.current status,VS,2 pressors, labs,GT problem, INR, 2xFFP,IVF,NPO/unable to give any PO meds,see new orders
--- NOTE | 2016-08-22 18:34 | NUR ---
OPERATOR RECEPTIONIST: Ashleigh ID TELECOM SALES CONSULTANT updated with all above
[2016-08-22] MEDS ORDERED: MEROPENEM 500 MG in IV NS 0.9% 50 ML IV SCH (20:00)
[2016-08-22] MEDS ORDERED: SECONDARY IV SET 1 EA INFUS.SET MC ONE (21:21)
[2016-08-22] MEDS: LORAZEPAM INJ 2 MG/ML VIAL IV PRN (21:33)
[2016-08-22] MEDS ORDERED: AMIODARONE 150 MG/3 ML VIAL IV ONE ×2 (22:08→22:09)
[2016-08-22] MEDS ORDERED: IV D5W 100 ML IV ONE (22:10)
[2016-08-22] MEDS ORDERED: IV D5W 500 ML IV ONE (22:10)
--- NOTE | 2016-08-22 22:14 | NUR ---
LAWN SPECIALIST - REC'D PT. AT START OF SHIFT, W/LABORED BREATHING. PT.IS STUPOROUS/LETHARGIC. CANNOT OPEN BILAT. EYES ALL THE WAY. LABORED BREATHING. RT-DARCY AT BS. PT. IS DESATTING, INTO THE 80'S. PT'S FAMILY WAS PHONED, BUT KEPT HANGING UP. FINALLY THE PT'S 2 DAUGHTERS PHONED BACK & STATUS UPDATE WAS GIVEN OVER PHONE. FAMILY CAME RIGHT IN & MADE PT.A DNR/STATUS. 20:25 WAS PHONED RE: PT'S CODE STATUS. PT.HAS NEOSYNEPHRINE,LEVOPHED & VASOPRESSIN GTT. ALL MAXED OUT. PT. IS DESATTING SLOWLY. PT.IS TRACH/VENTED. PEG IS OUT OF PLACE & HAS BEEN FOR LAST WEEK. ATIVAN ONE MG IVP ADM. A CONFERENCE ASSISTANT FROM [facility] CAME IN TO GIVE PT. LAST RITES. FAMILY AT BS.
[2016-08-22] MEDS ORDERED: AMIODARONE 900 MG in IV D5W 482 ML IV PRN (22:30)
[2016-08-22] MEDS ORDERED: AMIODARONE IV ONE (22:30)
[2016-08-22] MEDS ORDERED: DIGOXIN INJ 0.5 MG/2 ML AMPUL IV ONE (22:30)
[2016-08-22] MEDS ORDERED: D5W IV ONE (22:30)
--- NOTE | 2016-08-22 23:17 | NUR ---
INJECTOR ASSEMBLER-PT. CONT. TO DESATS IN THE 80'S WHILE VENT IS 100%. ED-TELECOM ENGINEER, TALKED W/ & DIGOXIN & AMIODARONE BOLUS/GTT. ORDERED. FAMILY IS THINKING ABOUT PALLIATIVE/COMFORT CARE. CONT.POC.
[2016-08-23] MEDS ORDERED: LORAZEPAM INJ 2 MG/ML VIAL ONE (00:16)
[2016-08-23] MEDS: LORAZEPAM INJ 2 MG/ML VIAL IV PRN (00:20)
--- NOTE | 2016-08-23 00:23 | NUR ---
NATIONAL SALES MANAGER - FAMILY DECIDED TO SHUT OFF ALL VASOPRESSORS & ADM. MORPHINE SULFATE 2 MG IVP & ATIVAN ONE MG SLOW IVP FOR COMFORT. PUPILS ARE FIXED- RT. PUPIL HAS CATARACTS & LEFT PUPIL IS 5/FIXED. NO TRACKING. PT.IS STILL ON VENTILATOR. RATE IS 16, NO SPONTANEOUS BREATHING OVER RATE OF 16. CAROTID PULSE WEAK. NO REACTION TO TACTILE STIMULUS. FAMILY AT BS.
[2016-08-23] MEDS ORDERED: MORPHINE SULFATE INJ 10 MG/ML DISP.SYRIN IV PRN ×2 (00:30→00:45)
[2016-08-23] MEDS ORDERED: LORAZEPAM INJ 2 MG/ML VIAL IV PRN ×2 (00:30→01:00)
[2016-08-23] MEDS ORDERED: MORPHINE SULFATE INJ 4 MG/ML DISP.SYRIN IV PRN (00:30)
[2016-08-23] MEDS ORDERED: MORPHINE SULFATE INJ 4 MG/ML DISP.SYRIN ONE (00:34)
--- NOTE | 2016-08-23 01:20 | NUR ---
SPRINKLER DRIVER- PT.WAS PRONOUNCED BY INSPECTOR CHIEF -ED MANDEEP. FAMILY REMAINS AT BS.
== END 2016-08-23 00:51 | disposition expired | DRG 870 ==
LOC: ER 18:41 → TELE 20:42 → ICU 08-02 14:27 → TELE-TD 08-08 17:50 → TELE1 08-10 10:36 → TELE-TD 08-13 10:46 → TELE1 08-20 09:03 → ICU 08-22 05:45 → UNDODISIN 08-23 00:51
PROVIDERS: ADMIT Internal Medicine; ATTEND Internal Medicine
PROC: 5A1955Z Respiratory Ventilation, Greater than 96 Consecutive Hours (ICD-10-PCS; principal; 2016-07-31)
PROC: 5A1D60Z (ICD-10-PCS; 2016-07-31)
PROC: 0W9G3ZZ Drainage of Peritoneal Cavity, Percutaneous Approach (ICD-10-PCS; 2016-08-01)
PROC: 02HV33Z Insertion of Infusion Device into Superior Vena Cava, Percutaneous Approach (ICD-10-PCS; 2016-08-02)
PROC: B548ZZA Ultrasonography of Superior Vena Cava, Guidance (ICD-10-PCS; 2016-08-02)
PROC: 0W993ZZ Drainage of Right Pleural Cavity, Percutaneous Approach (ICD-10-PCS; 2016-08-04)
PROC: 0W993ZZ Drainage of Right Pleural Cavity, Percutaneous Approach (ICD-10-PCS; 2016-08-13)
PROC: 0D20XUZ Change Feeding Device in Upper Intestinal Tract, External Approach (ICD-10-PCS; 2016-08-15)
PROC: 30233K1 Transfusion of Nonautologous Frozen Plasma into Peripheral Vein, Percutaneous Approach (ICD-10-PCS; 2016-08-22)
DX: A41.9 Sepsis, unspecified organism (principal); N18.6 End stage renal disease; R53.2 Functional quadriplegia; R65.21 Severe sepsis with septic shock; G93.40 Encephalopathy, unspecified; Z99.11 Dependence on respirator [ventilator] status; D68.9 Coagulation defect, unspecified; I50.32 Chronic diastolic (congestive) heart failure; J96.11 Chronic respiratory failure with hypoxia; I47.1 Supraventricular tachycardia; J90 Pleural effusion, not elsewhere classified; I13.2 Hypertensive heart and chronic kidney disease with heart failure and with stage 5 chronic kidney disease, or end stage renal disease; K94.22 Gastrostomy infection; L03.311 Cellulitis of abdominal wall; N18.9 Chronic kidney disease, unspecified; Z99.2 Dependence on renal dialysis; I48.91 Unspecified atrial fibrillation; K21.9 Gastro-esophageal reflux disease without esophagitis; Z93.0 Tracheostomy status; R13.10 Dysphagia, unspecified; F10.20 Alcohol dependence, uncomplicated; L98.9 Disorder of the skin and subcutaneous tissue, unspecified; D69.2 Other nonthrombocytopenic purpura; D69.6 Thrombocytopenia, unspecified; E86.1 Hypovolemia; G40.909 Epilepsy, unspecified, not intractable, without status epilepticus; Z87.891 Personal history of nicotine dependence; Z79.899 Other long term (current) drug therapy; J44.9 Chronic obstructive pulmonary disease, unspecified; I48.0 Paroxysmal atrial fibrillation; E66.9 Obesity, unspecified; Y83.3 Surgical operation with formation of external stoma as the cause of abnormal reaction of the patient, or of later complication, without mention of misadventure at the time of the procedure; Z68.31 Body mass index [BMI] 31.0-31.9, adult; L98.8 Other specified disorders of the skin and subcutaneous tissue; L89.152 Pressure ulcer of sacral region, stage 2; L85.3 Xerosis cutis; K70.31 Alcoholic cirrhosis of liver with ascites; D63.8 Anemia in other chronic diseases classified elsewhere; I95.9 Hypotension, unspecified; I73.9 Peripheral vascular disease, unspecified; F09 Unspecified mental disorder due to known physiological condition; L30.8 Other specified dermatitis; Y83.9 Surgical procedure, unspecified as the cause of abnormal reaction of the patient, or of later complication, without mention of misadventure at the time of the procedure; Y82.9 Unspecified medical devices associated with adverse incidents; Y92.129 Unspecified place in nursing home as the place of occurrence of the external cause
CPT/HCPCS: 31720; 36415; 36569; 36600; 43246; 71010-TC; 74000-TC; 76942-TC; 80048-TC; 80053-TC; 80076-TC; 80150; 80202-TC; 82533; 82962-TC; 83605-TC; 83690-TC; 83735-TC; 83880; 84100-TC; 84155-TC; 85025-TC; 85610-TC; 85730-TC; 86850-TC; 87040-TC; 87070-TC; 87075-TC; 87081-TC; 87102-TC; 88305-TC; 88312-TC; 89051-TC; 90935-TC; 93307-TC; 94002-TC; 94003-TC; 94760-TC; 99082-TC; A4216; A4606; A4623; A6248; A6253; A6402; A6403; C1751; C9113; J0278; J0282; J0885; J1953; J2060; J2185; J2248; J2270; J2370; J2543; J2704; J3370; J3490; J7030; J7040; J7042; J7050; J7060; P9017-BL; P9047; Q9963; Z7610